=== PATIENT | female | born 1935 | race Caucasian/White ===

== ENCOUNTER 2018-08-03 16:29 | Emergency (ER) | payer MEDICARE, OTHER ==
[2018-08-03] MEDS ORDERED: MECLIZINE 25 MG TABLET PO ONE (17:13)
[2018-08-03] MEDS ORDERED: ACETAMINOPHEN 325 MG TAB PO ONE (17:13)
--- NOTE | 2018-08-03 17:13 | Emergency Department Record ---
History of Present Illness - General Chief Complaint: Hypertension Stated Complaint: HTN/DIZZY Time Seen by Provider: 08/03/18 17:00 Source: Patient Mode of Arrival: Ambulatory Limitations: No limitations - History of Present Illness Initial Comments: The patient is here due to being dizzy like the room is spinning for 2 days. The onset was gradual. She denies any visual changes, falls or trauma and also states her BP has been running high. The patient does not have a doctor here at [facility] and just moved here 2 months ago. She denies any MATTHEWS, trouble talking, CP, back pain or sweating. The patient does have JOAQUIN but that has been a chronic problem and stable. There has been no changes to her medications recently. The patient does have extensive cardiac issues and does have a [employer] in [place]. Complaint: Dizziness Onset/Timin -: Days(s) Timing: Unsure Description: Lightheadedness History of Same: No History of Trauma: No Severity: Mild Improves With: Nothing Worsens With: Nothing Associated Symptoms: Weakness - Related Data Home Medications Medication Instructions Recorded Confirmed Last Taken Aspirin [Adult Aspirin] 81 mg PO DAILY 08/03/18 08/03/18 Unknown Carvedilol [Coreg] 3.125 mg PO BID 08/03/18 08/03/18 Unknown Clopidogrel Bisulfate [Plavix] 75 mg PO DAILY 08/03/18 08/03/18 Unknown Hydrochlorothiazide [Hctz] 25 mg PO DAILY 08/03/18 08/03/18 Unknown Isosorbide Mononitrate [Imdur] 30 mg PO DAILY 08/03/18 08/03/18 Unknown Losartan Potassium [Cozaar] 100 mg PO DAILY 08/03/18 08/03/18 Unknown Omeprazole 40 mg PO DAILY 08/03/18 08/03/18 Unknown Simvastatin [Zocor] 80 mg PO QHS 08/03/18 08/03/18 Unknown Sucralfate [Carafate] 1 gm PO QHS 08/03/18 08/03/18 Unknown Previous Rx's Medication Instructions Recorded Meclizine HCl [Antivert] 12.5 mg PO BID #20 tab 08/03/18 Allergies Allergy/AdvReac Type Severity Reaction Status Date / Time codeine AdvReac ALTERED Verified 08/03/18 17:31 MENTAL STATUS Travel Screening - Travel/Exposure Within Last 30 Days Have you traveled within the last 30 days?: No Review of Systems Constitutional: Denies: Chills, Fever Eyes: Denies: Eye discharge ENT: Denies: Congestion Respiratory: Denies: Cough, Dyspnea Cardiovascular: Denies: Chest pain Endocrine: Reports: Fatigue Gastrointestinal: Denies: Diarrhea, Nausea, Vomiting Genitourinary: Denies: Dysuria Musculoskeletal: Reports: Arthralgia (chronic.) Past Medical History - SOCIAL HISTORY Smoking Status: Former smoker Alcohol Use: None Drug Use: None - RESPIRATORY Hx Respiratory Disorders: Yes Hx Tuberculosis: Yes - CARDIOVASCULAR Hx Cardio Disorders: Yes Hx Abnormal EKG: Yes Hx Heart Attack: Yes Hx Hypertension: Yes - NEURO Hx Neuro Disorders: No - GI Hx GI Disorders: No - Hx Genitourinary Disorders: No - ENDOCRINE Hx Endocrine Disorders: No - MUSCULOSKELETAL Hx Musculoskeletal Disorders: No - PSYCH Hx Psych Problems: No - HEMATOLOGY/ONCOLOGY Hx Hematology/Oncology Disorders: No Family Medical History Any Significant Family History?: No Physical Exam - General General Appearance: Alert, Oriented x3, Cooperative, No acute distress - Head Head exam: Atraumatic, Normocephalic, Normal inspection - Eye Eye exam: Normal appearance, PERRL, EOMI - ENT ENT exam: Normal exam, Mucous membranes moist, Normal external ear exam, Normal orophraynx, TM's normal bilaterally Throat exam: Normal inspection. negative: Tonsillar erythema, Tonsillar exudate - Neck Neck exam: Normal inspection, Full ROM. negative: Tenderness - Respiratory Respiratory exam: Normal lung sounds bilaterally. negative: Respiratory distress - Cardiovascular Cardiovascular Exam: Regular rate, Normal rhythm, Normal heart sounds - GI/Abdominal GI/Abdominal exam: Soft, Normal bowel sounds. negative: Tenderness - Extremities Extremities exam: Normal inspection, Full ROM, Normal capillary refill. negative: Tenderness - Back Back exam: Reports: Normal inspection - Neurological Neurological exam: Abnormal gait (Chronic. The patient uses a walker at all times.), Alert, Oriented X3, Other (Finger to nose normal bilaterally.). negative: Altered, Motor sensory deficit, Normal gait Course Vital Signs 08/03/18 08/03/18 16:37 17:10 Temperature 98.7 F Pulse Rate 77 Respiratory 22 Rate Blood Pressure 201/85 Pulse Ox 93 L - Reevaluation(s) Reevaluation #1: The patient's repeat BP is 159/86. 08/03/18 17:27 Reevaluation #2: The patient is doing well at this time and has no dizziness or weakness. 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 The patient only walks with a walker normally and does appear steady at the side of the bed. Her BP is also much improved and is normal at this time. I did discuss the issues with the lab work and due to the elevated CK-MB (although the Trop is normal) I did recommend a short stay admission. The patient has no symptoms that seem related to her heart but due to the elevated MB I do feel I am obligated to admit for monitoring and further evaluation. I then explained to the patient and family the risks of NOT admitting her here are that she could go home and have an [place], stroke, become disabled and even . The patient clearly has proper decision making capacity and understands and accepts the risks of leaving. She was instructed to return to the ER at any time for recheck if any new symptoms develop. 08/03/18 18:29 08/03/18 18:38 Medical Decision Making - Data Complexity MDM Data: Labs Ordered and/or Reviewed, X-Ray Ordered and/or Reviewed, EKG Ordered and/or Reviewed - Lab Data Result diagrams: 08/03/18 16:55 08/03/18 16:55 - EKG Data -: EKG Interpreted by Me EKG: No Acute Changes (Old anteroseptal infarct, age indeterminate.) - Radiology Data Radiology results: Report reviewed (Head CT: Neg for any acute changes.) Disposition Disposition: Discharge Clinical Impression: Dizziness Disposition: Against Medical Advice Condition: (2) Stable Instructions: Hypertension (ED), Dizziness (ED) Additional Instructions: Please continue your regular medicines and please take the Antivert if needed. Please see your doctor later this week to recheck your blood pressure and for possible medication adjustment. Return to the ER for any worsening dizziness, or any CP, SOB, or SWETA. Prescriptions: Meclizine HCl [Antivert] 12.5 mg PO BID #20 tab Referrals: [facility] Specialty Clinics [Provider Group] JAZZY OLIVA M.D. [MEDICAL DOCTOR] - Forms: Patient Portal Access Time of Disposition: 18:35 Quality - Quality Measures Quality Measures: N/A - Blood Pressure Screening View Details: Yes Does Patient Have Any of the Following: Active Dx of HTN Blood Pressure Classification: Pre-Hypertensive BP Reading Systolic Measurement: 201 Diastolic Measurement: 85 Screening for High Blood Pressure: Patient Exclusion, Hx of HTN [G9744]
[2018-08-03 17:22] LABS: BASO % 0.2 % (0-6); EOS % 0.9 % (0-6); GRAN % 60.6 % (47-80); HEMATOCRIT 36.5 % (35.0-47.0); HEMOGLOBIN 12.2 gm/dl (11.6-16.0); LYMPH % 32.4 % (16-45); MEAN CORPUSCULAR HEMOGLOBIN 26.8 pg (27-33); MEAN CORPUSCULAR HGB CONC 33.4 g/dl (32-36); MEAN PLATELET VOLUME 9.3 fl (7.4-10.4); MONO % 5.9 % (0-9); PLATELET COUNT 291 K/uL (130-400); RED BLOOD COUNT 4.56 M/uL (3.80-5.40); RED CELL DISTRIBUTION WIDTH 14.8 % (11.5-14.5); WHITE BLOOD COUNT W/O DIFF 9.7 K/uL (4.2-12.2)
[2018-08-03 17:44] LABS: ALBUMIN 4.2 g/dL (4.0-5.0); ALKALINE PHOSPHATASE 81 U/L (35-104); ALT/SGPT 12 U/L (<33); AST/SGOT 15 U/L (10.0-35.0)
[2018-08-03 17:45] LABS: ALB/GLOB RATIO 1.2 (1.1-1.8); BLOOD UREA NITROGEN 15 mg/dL (8-23); CREATININE 0.6 mg/dL (0.5-0.9); EST GLOMERULAR FILTRATION RATE > 60 mL/min; GLUCOSE,RANDOM 105 mg/dL (74-109); TOTAL PROTEIN 7.6 g/dL (6.6-8.7)
[2018-08-03 17:50] LABS: CKMB 9.1 ng/mL (<3.77); CREATINE PHOSPHOKINASE 162 U/L (26-192)
--- NOTE | 2018-08-05 12:49 | CT SCAN REPORT ---
EXAM: CT SCAN HEAD WO CONTRAST HISTORY: DIZZINESS. HIGH BLOOD PRESSURE. RIGHT SHOULDER PAIN. TECHNIQUE: Noncontrast CT head. COMPARISON: None. FINDINGS: Diffuse prominence of the ventricles and cortical sulci. Periventricular and subcortical white matter hypoattenuation. No midline shift, mass effect, or abnormal intra or extraaxial fluid collection. No cerebral edema , focal mass, or intracranial hemorrhage detected. Basal cisterns are not effaced. No evidence of displaced calvarial fracture. Visualized paranasal sinuses and mastoid air cells are clear. IMPRESSION: 1. NO ACUTE INTRACRANIAL FINDINGS. 2. DIFFUSE CEREBRAL VOLUME LOSS AND LIKELY CHRONIC SMALL VESSEL ISCHEMIC WHITE MATTER CHANGES. JOB NUMBER: [id number] MTDD
== END 2018-08-03 18:49 | disposition left against medical advice (07) ==
LOC: ER 16:29
DX: R42 Dizziness and giddiness (principal); R53.1 Weakness; R74.8 Abnormal levels of other serum enzymes; M25.511 Pain in right shoulder; I10 Essential (primary) hypertension; I25.2 Old myocardial infarction; Z87.891 Personal history of nicotine dependence
CPT/HCPCS: 70450; 80053; 82550; 82553; 84484; 85025; 93005; 93010; 99284

== ENCOUNTER 2018-10-02 21:55 | Observation (INO) | payer MEDICARE, OTHER ==
[2018-10-02] MEDS ORDERED: IPRATROPIUM/ALBUTEROL (0.5MG/3MG) NEB INH ONE (22:01)
[2018-10-02] MEDS ORDERED: METHYLPREDNISOLONE PF 125MG/VIAL IVPB ONE (22:01)
[2018-10-02] MEDS ORDERED: ALBUTEROL (0.5% CONCENTRATED) 2.5 MG/0.5 ML VIAL.NEB INH ONE (22:05)
--- NOTE | 2018-10-02 22:07 | Emergency Department Record ---
History of Present Illness - General Chief Complaint: Shortness of breath Stated Complaint: SWETA Time Seen by Provider: 10/02/18 22:01 Source: Patient, Family (Daughter) Mode of Arrival: Wheelchair Limitations: No limitations - History of Present Illness Initial Comments: 83 yo female presents to ED for difficulty in breathing symptoms that began this evening. Patient does have bronchodilators that help at home, daughter is unsure if the patient has been diagnosed with COPD or asthma. Patient denies fevers, chills, or productive cough symptoms. Patient denies chest discomfort symptoms. MD Complaint: Shortness of breath Onset/Timin -: Days(s) Consistency: Constant Improves With: Bronchodilators Worsens With: Lying flat Known History Of: COPD Associated Symptoms: Denies other symptoms Treatments Prior to Arrival: Bronchodilator - Related Data Home Oxygen Therapy: No Previous Rx's Medication Instructions Recorded Meclizine HCl [Antivert] 12.5 mg PO BID #20 tab 08/03/18 Allergies Allergy/AdvReac Type Severity Reaction Status Date / Time codeine AdvReac ALTERED Verified 08/03/18 17:31 MENTAL STATUS Review of Systems Constitutional: Denies: Chills, Fever, Malaise, Night sweats Eyes: Denies: Eye discharge, Eye pain ENT: Denies: Congestion, Ear pain, Epistaxis Respiratory: Reports: Dyspnea, Wheezes. Denies: Cough Cardiovascular: Reports: Dyspnea on exertion. Denies: Chest pain Endocrine: Denies: Fatigue, Heat or cold intolerance Gastrointestinal: Denies: Abdominal pain, Nausea, Vomiting Genitourinary: Denies: Incontinence, Retention Musculoskeletal: Denies: Arthralgia, Back pain Skin: Denies: Bruising, Change in color Neurological: Denies: Abnormal gait, Confusion, Headache, Seizure Psychiatric: Denies: Anxiety Hematological/Lymphatic: Denies: Anemia, Blood Clots Past Medical History - SOCIAL HISTORY Smoking Status: Former smoker Drug Use: None - RESPIRATORY Hx Respiratory Disorders: Yes Hx Tuberculosis: Yes - CARDIOVASCULAR Hx Cardio Disorders: Yes Hx Abnormal EKG: Yes Hx Heart Attack: Yes Hx Hypertension: Yes - NEURO Hx Neuro Disorders: No - GI Hx GI Disorders: No - Hx Genitourinary Disorders: No - ENDOCRINE Hx Endocrine Disorders: No - MUSCULOSKELETAL Hx Musculoskeletal Disorders: No - PSYCH Hx Psych Problems: No - HEMATOLOGY/ONCOLOGY Hx Hematology/Oncology Disorders: No Physical Exam - General General Appearance: Alert, Oriented x3, Cooperative, Moderate distress, Other ( Sitting upright, tachypnic with diminished BS bilaterally) Limitations: No limitations - Head Head exam: Atraumatic, Normocephalic, Normal inspection Head exam detail: negative: Abrasion, Contusion, Ureña's sign, General tenderness, Hematoma, Laceration - Eye Eye exam: Normal appearance. negative: Conjunctival injection, Periorbital swelling, Periorbital tenderness, Scleral icterus - ENT Ear exam: negative: Auricular hematoma, Auricular trauma Nasal Exam: negative: Active bleeding, Discharge, Dried blood, Foreign body Mouth exam: negative: Drooling, Laceration, Muffled voice, Tongue elevation - Neck Neck exam: Normal inspection. negative: Meningismus, Tenderness - Respiratory Respiratory exam: Decreased breath sounds, Prolonged expiratory, Respiratory distress, Wheezes - Cardiovascular Cardiovascular Exam: Normal rhythm, Normal heart sounds, Tachycardia - GI/Abdominal GI/Abdominal exam: Soft. negative: Rebound, Rigid, Tenderness - Rectal Rectal exam: Deferred - exam: Deferred - Extremities Extremities exam: Normal inspection. negative: Pedal edema, Tenderness - Back Back exam: Denies: CVA tenderness (R), CVA tenderness (L) - Neurological Neurological exam: Alert, Oriented X3 - Psychiatric Psychiatric exam: Normal affect, Normal mood - Skin Skin exam: Normal color. negative: Abrasion Type of lesion: negative: abrasion Course - Reevaluation(s) Reevaluation #1: 10/02/18 22:30 EKG: NSR 93 Normal axis, normal intervals Artifact present, J-point elevation V1-V3 No reciprocal changes are present. Reevaluation #2: 10/02/18 22:41 Laboratory studies were reviewed and are grossly unremarkable for an acute process. Patient's work of breathing is significantly improved on Bipap at this time. Reevaluation #3: 10/02/18 23:11 Patient was updated on all results, will trial off Bipap, admit and monitor closely. Patient and her daughter are in agreement with the plan of care as discussed. Reevaluation #4: 10/03/18 07:03 Case was discussed with Sra Phillips DELIVERY DIRECTOR, will accept admission at this time. Medical Decision Making - Lab Data Result diagrams: 10/02/18 22:10 10/02/18 22:10 Critical Care Time Critical Care Time: Yes Total Critical Care Time: 60 Critical Care Time: Diagnosis and treatment of COPD with exacerbation, Bipap management, EKG interpretation, admission for further treatment. Disposition Disposition: Admit Clinical Impression: COPD with acute exacerbation, Hypoxia Disposition: Still a Patient at [facility] Decision to Admit: Admit from ER Decision to Admit Date: 10/02/18 Decision to Admit Time: 23:11 Condition: (2) Stable Time of Disposition: 23:12 Quality - Quality Measures Quality Measures: N/A - Blood Pressure Screening Does Patient Have Any of the Following: Active Dx of HTN Blood Pressure Classification: Hypertensive Reading Systolic Measurement: 225 Diastolic Measurement: 107 Screening for High Blood Pressure: Patient Exclusion, Hx of HTN [G9744]
[2018-10-02 22:18] LABS: BASO % 0.3 % (0-6); EOS % 1.8 % (0-6); GRAN % 67.7 % (47-80); HEMATOCRIT 38.9 % (35.0-47.0); HEMOGLOBIN 12.4 gm/dl (11.6-16.0); LYMPH % 25.8 % (16-45); MEAN CELL VOLUME 81.6 fl (81-97); MEAN CORPUSCULAR HGB CONC 31.9 g/dl (32-36); MEAN PLATELET VOLUME 9.1 fl (7.4-10.4); MONO % 4.4 % (0-9); PLATELET COUNT 264 K/uL (130-400); RED BLOOD COUNT 4.77 M/uL (3.80-5.40); RED CELL DISTRIBUTION WIDTH 15.7 % (11.5-14.5); WHITE BLOOD COUNT W/O DIFF 11.6 K/uL (4.2-12.2)
[2018-10-02 22:27] LABS: BLOOD UREA NITROGEN 15 mg/dL (8-23); CREATININE 0.5 mg/dL (0.5-0.9); EST GLOMERULAR FILTRATION RATE > 60 mL/min
[2018-10-02 22:28] LABS: TOTAL PROTEIN 7.6 g/dL (6.6-8.7)
[2018-10-02 22:30] LABS: GLUCOSE,RANDOM 115 mg/dL (74-109)
[2018-10-02 22:33] LABS: ALB/GLOB RATIO 1.2 (1.1-1.8); ALBUMIN 4.2 g/dL (4.0-5.0); ALKALINE PHOSPHATASE 82 U/L (45-87); ALT/SGPT 11 U/L (<33); AST/SGOT 13 U/L (10.0-35.0)
[2018-10-03] MEDS ORDERED: ALBUTEROL SULFATE (0.083%) 2.5 MG/3 ML NEB INH PRN (00:09)
[2018-10-03] MEDS: ACETAMINOPHEN 500 MG TABLET PO PRN ×2 (01:03→09:45)
[2018-10-03] MEDS: 0.9 % SODIUM CHLORIDE 1000ML 1,000 ML IV PRN ×2 (01:04→13:22)
[2018-10-03] MEDS: SUCRALFATE 1 G/10 ML UD PO SCH ×2 (01:07→22:13)
[2018-10-03] MEDS: IPRATROPIUM/ALBUTEROL (0.5MG/3MG) NEB INH SCH ×7 (05:15→22:18)
[2018-10-03] MEDS: PANTOPRAZOLE SODIUM 40 MG TABLET PO SCH (07:22)
[2018-10-03] MEDS: CARVEDILOL 3.125 MG TABLET PO SCH ×2 (09:44→22:13)
[2018-10-03] MEDS: LOSARTAN POTASSIUM 100 MG TABLET PO SCH (09:44)
[2018-10-03] MEDS: MECLIZINE 25 MG TABLET PO SCH ×2 (09:45→22:14)
[2018-10-03] MEDS: CLOPIDOGREL 75MG TABLET PO SCH (09:45)
[2018-10-03] MEDS: ASPIRIN 81 MG TABEC PO SCH (09:45)
[2018-10-03] MEDS: ISOSORBIDE MONONITRATE 30 MG TAB.ER.24H PO SCH (09:46)
[2018-10-03] MEDS: METHYLPREDNISOLONE PF 125MG/VIAL IVP SCH (09:46)
[2018-10-03] MEDS: HYDROCHLOROTHIAZIDE 25 MG TABLET PO SCH (09:46)
[2018-10-03 11:08] LABS: INFLUENZA A NEGATIVE (NEGATIVE); INFLUENZA B NEGATIVE (NEGATIVE)
--- NOTE | 2018-10-03 12:03 | History & Physical ---
History of Present Illness - Date of Service Date of Service for History & Physical: 10/03/18 - History of Present Illness Admitting Diagnosis: COPD with acute exacerbation. Hypoxia History of Present Illness: 83 yo female c/o worsening SWETA/SOB and cough for several days. Denies sick contacts, was 2ppd smoker but quit 20 years ago. Denies official DX of COPD, daughter reports over use of alb MDI at home. PMH "lung issues", [place], cardiac STENT x1 (1999), tod femoral STENT, DM, HTN, hyperlipidemia, GERD, macular degeneration, and hearing impairment. 10/02/18 Pt brought to [facility] ER by daughter for SWETA. EKG no acute process CXR audio clip reviewed, chronic changes no PNA noted 97.3F axillary, HR 120 (down to 89 after bipap initiated), 225/107 (176/90), 40RR (20), 84% RA (95% bipap) WBC 11.6, Hgb 12.4, Hct 38.9, Plt 264 Na 126, Na 4.2, Cl 88, CO2 23, Anion gap 16, BUN 15, Cr 0.5, GFR >60, Glucose 115, LFTs wnl Trop <0.010 Pt placed on Bipap, improved work of breathing, HR and RR decreased with increase in O2 sat. Per ER report, pt requested to keep bipap on for the evening to sleep and tolerated well. Given solumedrol 125mg IVP, alb tx in the bipap, 10/03/18 Flu swab negative, UA negative. Labs reviewed, low sodium-repeat AM Pt taken off bipap and tolerating NC 3L. Pt has mild resp distress but able to talk in full sentences. Pt denies CP and report she feels rested after the bipap use last night. Pt has heavy smoking hx and only uses alb MDI at home, no official COPD dx but daughter at bedside reports pt uses alb MDI repeatedly through out the day. Baseline activity level is active and ambulatory. POC supplemental O2, alb nebs, repeat labs in the AM, bipap if needed but attempting to maintain on NC, solumedrol 125mg IVP, and pulmicort neb. Pt daughter also brought in up to date med list, nursing staff reviewing and will monitor BP with all meds up to date. PCP [facility] Specialist Gonzales Spencer ([facility]) Travel Screening - Travel/Exposure Within Last 30 Days Have you traveled within the last 30 days?: No - Travel/Exposure Within Last Year Have you traveled outside the [place] in the last year?: No - Additonal Travel Details Have you been exposed to anyone with a communicable illness?: No - Travel Symptoms Symptom Screening: None Review of Systems Constitutional: Denies: Chills, Fever, Malaise, Night sweats Eyes: Denies: Eye discharge, Eye pain ENT: Denies: Congestion, Ear pain, Epistaxis Respiratory: Reports: Dyspnea, Wheezes. Denies: Cough Cardiovascular: Reports: Dyspnea on exertion. Denies: Chest pain Endocrine: Denies: Fatigue, Heat or cold intolerance Gastrointestinal: Denies: Abdominal pain, Nausea, Vomiting Genitourinary: Denies: Incontinence, Retention Musculoskeletal: Denies: Arthralgia, Back pain Skin: Denies: Bruising, Change in color Neurological: Denies: Abnormal gait, Confusion, Headache, Seizure Psychiatric: Denies: Anxiety Hematological/Lymphatic: Denies: Anemia, Blood Clots Past Medical History - SOCIAL HISTORY Smoking Status: Former smoker Drug Use: None - RESPIRATORY Hx Respiratory Disorders: Yes Hx Tuberculosis: Yes - CARDIOVASCULAR Hx Cardio Disorders: Yes Hx Abnormal EKG: Yes Hx Heart Attack: Yes Hx Hypertension: Yes - NEURO Hx Neuro Disorders: No - GI Hx GI Disorders: No - Hx Genitourinary Disorders: No - ENDOCRINE Hx Endocrine Disorders: No - MUSCULOSKELETAL Hx Musculoskeletal Disorders: No - PSYCH Hx Psych Problems: No - HEMATOLOGY/ONCOLOGY Hx Hematology/Oncology Disorders: No Family Medical History Any Significant Family History?: No Hx Alcohol Use: Father Hx Dementia: Mother Hx Diabetes: Brother/Sister Hx HTN: Brother/Sister Hx Stroke: Father H&P Meds/Allergies - Allergies Allergies: Allergies Allergy/AdvReac Type Severity Reaction Status Date / Time codeine AdvReac ALTERED Verified 08/03/18 17:31 MENTAL STATUS - Home Medications Previous Rx's Medication Instructions Recorded Meclizine HCl [Antivert] 12.5 mg PO BID #20 tab 08/03/18 - Active Medications Active Medications: Current Medications Acetaminophen (Tylenol 500mg Tab) 1,000 mg PO Q6H PRN PRN Reason: PAIN - MILD TO MODERATE (1-7) Last Admin: 10/03/18 09:45 Dose: 1,000 mg Albuterol Sulfate (Albuterol Sulfate) 2.5 mg INH RESP.Q2H PRN PRN Reason: DIFFICULTY IN BREATHING Albuterol/Ipratropium (Duoneb) 3 ml INH RESP.Q4H.WA [facility] Last Admin: 10/03/18 10:33 Dose: 3 ml Aspirin (Ecotrin (Ec)) 81 mg PO DAILY [facility] Last Admin: 10/03/18 09:45 Dose: 81 mg Carvedilol (Coreg) 3.125 mg PO BID [facility] Last Admin: 10/03/18 09:44 Dose: 3.125 mg Clopidogrel Bisulfate (Plavix) 75 mg PO DAILY [facility] Last Admin: 10/03/18 09:45 Dose: 75 mg Hydrochlorothiazide (Hctz 25mg) 25 mg PO DAILY [facility] Last Admin: 10/03/18 09:46 Dose: 25 mg Sodium Chloride () 1,000 mls @ 100 mls/hr IV .Q10H PRN PRN Reason: LARGE VOLUME IV Last Admin: 10/03/18 01:04 Dose: 100 mls/hr Isosorbide Mononitrate (Imdur) 30 mg PO DAILY [facility] Last Admin: 10/03/18 09:46 Dose: 30 mg Losartan Potassium (Losartan Potassium) 100 mg PO DAILY [facility] Last Admin: 10/03/18 09:44 Dose: 100 mg Meclizine HCl (Antivert) 12.5 mg PO BID [facility] Last Admin: 10/03/18 09:45 Dose: 12.5 mg Methylprednisolone Sodium Succinate (Solu-Medrol) 125 mg IVP DAILY [facility] Last Admin: 10/03/18 09:46 Dose: 125 mg [facility]oprazole [facility] (Protonix) [facility] Last Admin: 10/03/18 07:22 Dose: 80 mg Simvastatin (Zocor) 80 mg PO QHS [facility] Sucralfate (Carafate) 1 g PO QHS [facility] Last Admin: 10/03/18 01:07 Dose: 1 g Physical Exam - Vital Signs Vital Signs: Vital Signs - Last 24 Hrs Temp Pulse Pulse Pulse Pulse Resp BP 10/03/18 09:16 89 20 10/03/18 08:58 110 H 20 10/03/18 08:30 97.5 F L 102 H 24 10/03/18 07:44 84 20 10/03/18 01:42 90 16 10/03/18 00:09 97.8 F 93 H 16 10/02/18 23:24 83 22 10/02/18 22:39 97.3 F L 89 20 10/02/18 21:56 120 H 40 H 225/107 BP BP Pulse Ox 10/03/18 09:16 95 10/03/18 08:58 91 L 10/03/18 08:30 162/66 94 L 10/03/18 07:44 10/03/18 01:42 10/03/18 00:09 204/79 92 L 10/02/18 23:24 177/76 95 10/02/18 22:39 176/90 95 10/02/18 21:56 84 L - General General Appearance: Alert, Oriented x3, Cooperative, Mild distress Limitations: No limitations - Head Head exam: Atraumatic, Normocephalic, Normal inspection Head exam detail: negative: Abrasion, Contusion, Ureña's sign, General tenderness, Hematoma, Laceration - Eye Eye exam: Normal appearance. negative: Conjunctival injection, Periorbital swelling, Periorbital tenderness, Scleral icterus - ENT ENT exam: Mucous membranes moist Ear exam: negative: Auricular hematoma, Auricular trauma Nasal Exam: Normal inspection. negative: Active bleeding, Discharge, Dried blood, Foreign body Mouth exam: negative: Drooling, Laceration, Muffled voice, Tongue elevation Teeth exam: Other (dentures) - Neck Neck exam: Normal inspection. negative: Meningismus, Tenderness - Respiratory Respiratory exam: Decreased breath sounds, Prolonged expiratory, Respiratory distress (mild), Wheezes - Cardiovascular Cardiovascular Exam: Regular rate, Normal rhythm, Normal heart sounds Peripheral Pulses: 3+: Radial (R), Radial (L), Dorsalis Pedis (R), Dorsalis Pedis (L) - GI/Abdominal GI/Abdominal exam: Soft. negative: Rebound, Rigid, Tenderness - Rectal Rectal exam: Deferred - exam: Deferred - Extremities Extremities exam: Normal inspection. negative: Pedal edema, Tenderness - Back Back exam: Denies: CVA tenderness (R), CVA tenderness (L) - Neurological Neurological exam: Alert, Oriented X3 - Psychiatric Psychiatric exam: Normal affect, Normal mood - Skin Skin exam: Normal color. negative: Abrasion Type of lesion: negative: abrasion Results - Labs Result Diagrams: 10/02/18 22:10 10/02/18 22:10 Labs Last 24 Hours: Laboratory Results - last 24 hr 10/02/18 10/02/18 10/02/18 22:10 22:10 22:10 WBC 11.6 RBC 4.77 Hgb 12.4 Hct 38.9 MCV 81.6 MCH 26.0 L MCHC 31.9 L RDW 15.7 H Plt Count 264 MPV 9.1 Gran % 67.7 Lymphocytes % 25.8 Monocytes % 4.4 Eosinophils % 1.8 Basophils % 0.3 Sodium 127 L Potassium 4.2 Chloride 88 L Carbon Dioxide 23.0 Anion Gap 16.0 BUN 15 Creatinine 0.5 Estimated GFR > 60 Random Glucose 115 H Calcium 9.8 Total Bilirubin 0.40 AST 13 ALT 11 Alkaline Phosphatase 82 Troponin T < 0.010 Total Protein 7.6 Albumin 4.2 Globulin 3.4 Albumin/Globulin Ratio 1.2 Influenza Type A Ag Influenza Type B Ag 10/03/18 09:08 WBC RBC Hgb Hct MCV MCH MCHC RDW Plt Count MPV Gran % Lymphocytes % Monocytes % Eosinophils % Basophils % Sodium Potassium Chloride Carbon Dioxide Anion Gap BUN Creatinine Estimated GFR Random Glucose Calcium Total Bilirubin AST ALT Alkaline Phosphatase Troponin T Total Protein Albumin Globulin Albumin/Globulin Ratio Influenza Type A Ag Negative Influenza Type B Ag Negative - Imaging and Cardiology Chest x-ray Status: Report reviewed (audio clip reviewed) VTE H&P Assessment - Risk for VTE Risk for VTE: Yes Risk Level: High Risk Assessment Date: 10/03/18 Risk Assessment Time: 14:07 VTE Orders Placed or Will Be Placed: Yes Plan - Detailed Diagnosis and Plan (1) COPD with acute exacerbation Current Visit: Yes Status: Acute Base Code: J44.1 - CHRONIC OBSTRUCTIVE PULMONARY DISEASE W (ACUTE) EXACERBATION Comment: 10/03/18 -pt improving with steroids, temporary Bipap and now O2 via NC @ 3l -continue alb neb tx, pulmicort tx -CXR reports chronic issues, no PNA -CBC normal (2) Hypoxia Current Visit: Yes Status: Acute Base Code: R09.02 - HYPOXEMIA Comment: -84% RA upon arrival, bipap increased sat 95% -after steroids, alb tx, pt stable on 3L NC -continue to monitor O2 sat, maintain 92% and above (3) DNR (do not resuscitate) Current Visit: Yes Status: Acute Base Code: Z66 - DO NOT RESUSCITATE Comment: 10/03/18 -pt req DNR, DNR form completed with daughter at bedside, witnessing event (4) DVT prophylaxis Current Visit: Yes Status: Acute Base Code: [id number] - Comment: 10/03/18 -lovenox 40mg SQ
[2018-10-03 12:36] LABS: URINE APPEARANCE SL CLOUDY; URINE BILIRUBIN NEGATIVE (NEGATIVE); URINE BLOOD NEGATIVE (NEGATIVE); URINE COLOR YELLOW; URINE GLUCOSE (UA) NEGATIVE (NEGATIVE); URINE KETONE NEGATIVE (NEGATIVE); URINE LEUKOCYTE ESTERASE NEGATIVE (NEGATIVE); URINE NITRITE NEGATIVE (NEGATIVE); URINE PROTEIN NEGATIVE (NEGATIVE); URINE UROBILINOGEN 0.2 E.U./dL (0.20 - 1.00)
[2018-10-03] MEDS: BUDESONIDE 0.5 MG/2 ML INH SCH ×2 (13:37→19:57)
[2018-10-03] MEDS ORDERED: GABAPENTIN 100 MG CAPSULE PO SCH (16:00)
[2018-10-03] MEDS: GABAPENTIN 400 MG PO SCH ×2 (16:03→22:15)
[2018-10-03] MEDS: SIMVASTATIN 20 MG TABLET PO SCH (22:14)
[2018-10-03] MEDS: PERSERVISION PO SCH (22:15)
[2018-10-04] MEDS: BUDESONIDE 0.5 MG/2 ML INH SCH ×2 (06:03→17:56)
[2018-10-04] MEDS: IPRATROPIUM/ALBUTEROL (0.5MG/3MG) NEB INH SCH ×5 (06:03→21:46)
[2018-10-04 06:25] LABS: BASO % 0.1 % (0-6); EOS % 0.1 % (0-6); GRAN % 74.7 % (47-80); HEMATOCRIT 32.6 % (35.0-47.0); HEMOGLOBIN 10.4 gm/dl (11.6-16.0); LYMPH % 17.3 % (16-45); MEAN CELL VOLUME 81.7 fl (81-97); MEAN CORPUSCULAR HGB CONC 31.9 g/dl (32-36); MEAN PLATELET VOLUME 8.9 fl (7.4-10.4); MONO % 7.8 % (0-9); PLATELET COUNT 250 K/uL (130-400); RED BLOOD COUNT 3.99 M/uL (3.80-5.40); RED CELL DISTRIBUTION WIDTH 15.8 % (11.5-14.5); WHITE BLOOD COUNT W/O DIFF 8.6 K/uL (4.2-12.2)
[2018-10-04 06:37] LABS: BLOOD UREA NITROGEN 18 mg/dL (8-23); CREATININE 0.5 mg/dL (0.5-0.9); EST GLOMERULAR FILTRATION RATE > 60 mL/min; GLUCOSE,RANDOM 104 mg/dL (74-109)
[2018-10-04] MEDS: PANTOPRAZOLE SODIUM 40 MG TABLET PO SCH (06:39)
[2018-10-04] MEDS: ASPIRIN 81 MG TABEC PO SCH (09:36)
[2018-10-04] MEDS: MECLIZINE 25 MG TABLET PO SCH ×2 (09:36→22:07)
[2018-10-04] MEDS: HYDROCHLOROTHIAZIDE 25 MG TABLET PO SCH (09:37)
[2018-10-04] MEDS: CLOPIDOGREL 75MG TABLET PO SCH (09:38)
[2018-10-04] MEDS: CARVEDILOL 3.125 MG TABLET PO SCH ×2 (09:38→22:08)
[2018-10-04] MEDS: LOSARTAN POTASSIUM 100 MG TABLET PO SCH (09:38)
[2018-10-04] MEDS: METHYLPREDNISOLONE PF 125MG/VIAL IVP SCH (09:38)
[2018-10-04] MEDS: ISOSORBIDE MONONITRATE 30 MG TAB.ER.24H PO SCH (09:38)
[2018-10-04] MEDS: ENOXAPARIN 40 MG/0.4 ML SYR SQ SCH (09:39)
[2018-10-04] MEDS: PERSERVISION PO SCH ×2 (11:05→22:09)
[2018-10-04] MEDS: GABAPENTIN 400 MG PO SCH ×3 (11:05→22:09)
--- NOTE | 2018-10-04 11:40 | Physician Progress Note ---
Subjective - Date Date of Physician Progress Note: 10/04/18 - Subjective Subjective Comment: Pt reports decreased work of breathing but still using supplemental O2 and has not returned to normal appetite. Denies shortness of breath at this time. Objective - Vital Signs Vital Signs: Vital Signs - Last 24 Hrs Temp Pulse Pulse Pulse Pulse Resp BP 10/04/18 10:28 89 20 10/04/18 09:55 101 H 18 10/04/18 09:45 94 H 22 10/04/18 09:00 90 91 H 20 10/04/18 06:03 79 16 10/04/18 00:00 98.1 F 81 20 167/59 10/03/18 22:20 88 18 10/03/18 21:00 83 10/03/18 20:01 95 H 20 10/03/18 16:57 88 20 10/03/18 15:38 97.7 F 92 H 22 142/61 10/03/18 12:59 91 H 20 BP Pulse Ox 10/04/18 10:28 91 L 10/04/18 09:55 94 L 10/04/18 09:45 138/68 91 L 10/04/18 09:00 10/04/18 06:03 96 10/04/18 00:00 96 10/03/18 22:20 95 10/03/18 21:00 10/03/18 20:01 95 10/03/18 16:57 97 10/03/18 15:38 93 L 10/03/18 12:59 95 - General General Appearance: Alert, Oriented x3, Cooperative, No acute distress Limitations: No limitations - Head Head exam: Atraumatic, Normocephalic, Normal inspection Head exam detail: negative: Abrasion, Contusion, Ureña's sign, General tenderness, Hematoma, Laceration - Eye Eye exam: Normal appearance. negative: Conjunctival injection, Periorbital swelling, Periorbital tenderness, Scleral icterus - ENT ENT exam: Mucous membranes moist Ear exam: negative: Auricular hematoma, Auricular trauma Nasal Exam: Normal inspection. negative: Active bleeding, Discharge, Dried blood, Foreign body Mouth exam: negative: Drooling, Laceration, Muffled voice, Tongue elevation Teeth exam: Other (dentures) - Neck Neck exam: Normal inspection. negative: Meningismus, Tenderness - Respiratory Respiratory exam: Decreased breath sounds, Prolonged expiratory, Respiratory distress (mild), Wheezes - Cardiovascular Cardiovascular Exam: Regular rate, Normal rhythm, Normal heart sounds Peripheral Pulses: 3+: Radial (R), Radial (L), Dorsalis Pedis (R), Dorsalis Pedis (L) - GI/Abdominal GI/Abdominal exam: Soft. negative: Rebound, Rigid, Tenderness - Rectal Rectal exam: Deferred - exam: Deferred - Extremities Extremities exam: Normal inspection. negative: Pedal edema, Tenderness - Back Back exam: Denies: CVA tenderness (R), CVA tenderness (L) - Neurological Neurological exam: Alert, Oriented X3 - Psychiatric Psychiatric exam: Normal affect, Normal mood - Skin Skin exam: Normal color. negative: Abrasion Type of lesion: negative: abrasion Assessment and Plan - Assessment and Plan (1) COPD with acute exacerbation Current Visit: Yes Status: Acute Base Code: J44.1 - CHRONIC OBSTRUCTIVE PULMONARY DISEASE W (ACUTE) EXACERBATION Comment: 10/03/18 -pt improving with steroids, temporary Bipap and now O2 via NC @ 3l -continue alb neb tx, pulmicort tx -CXR reports chronic issues, no PNA -CBC normal 10/04/18 -CBC normal, BMP shows continued hyponatremia (asymptomatic) -still on 2L NC, req neb tx -nursing staff to attempt to wean off O2 (2) Hypoxia Current Visit: Yes Status: Acute Base Code: R09.02 - HYPOXEMIA Comment: -84% RA upon arrival, bipap increased sat 95% -after steroids, alb tx, pt stable on 3L NC -continue to monitor O2 sat, maintain 92% and above 10/04/18 -sat stable but on supplemental O2 -attempt to wean to RA (3) Hyponatremia Current Visit: Yes Status: Acute Base Code: E87.1 - HYPO-OSMOLALITY AND HYPONATREMIA Comment: 10/04/18 -low Na 127->128 -pt was on IVF during ER and after arrival to the floor, this was d/c yesterday but Na remains low but pt is asymptomatic -repeat in the AM, no IVF (4) DVT prophylaxis Current Visit: Yes Status: Acute Base Code: [id number] - Comment: 10/04/18 -lovenox 40mg SQ (5) DNR (do not resuscitate) Current Visit: Yes Status: Acute Base Code: Z66 - DO NOT RESUSCITATE Comment: 10/03/18 -pt req DNR, DNR form completed with daughter at bedside, witnessing event 10/04/18 DNR Results - Labs Result Diagrams: 10/04/18 05:55 10/04/18 05:55 Labs Last 24 Hours: Laboratory Results - last 24 hr 10/03/18 10/04/18 10/04/18 11:36 05:55 05:55 WBC 8.6 RBC 3.99 Hgb 10.4 L Hct 32.6 L MCV 81.7 MCH 26.0 L MCHC 31.9 L RDW 15.8 H Plt Count 250 MPV 8.9 Gran % 74.7 Lymphocytes % 17.3 Monocytes % 7.8 Eosinophils % 0.1 Basophils % 0.1 Sodium 128 L Potassium 4.4 Chloride 90 L Carbon Dioxide 26.0 Anion Gap 12.0 BUN 18 Creatinine 0.5 Estimated GFR > 60 Random Glucose 104 Calcium 9.5 Urine Color Yellow Urine Appearance Sl cloudy Urine pH 7.5 Ur Specific [place] 1.010 Urine Protein Negative Urine Glucose (UA) Negative Urine Ketones Negative Urine Blood Negative Urine Nitrite Negative Urine Bilirubin Negative Urine Urobilinogen 0.2 Ur Leukocyte Esterase Negative DVT/PE Assessment - Risk for VTE Risk for VTE: No Risk Level: High Risk Assessment Date: 10/03/18 Risk Assessment Time: 14:07 VTE Orders Placed or Will Be Placed: Yes - Active Medicaitons Current Medications: Current Medications Acetaminophen (Tylenol 500mg Tab) 1,000 mg PO Q6H PRN PRN Reason: PAIN - MILD TO MODERATE (1-7) Last Admin: 10/03/18 09:45 Dose: 1,000 mg Albuterol Sulfate (Albuterol Sulfate) 2.5 mg INH RESP.Q2H PRN PRN Reason: DIFFICULTY IN BREATHING Albuterol/Ipratropium (Duoneb) 3 ml INH RESP.Q4H.WA [facility] Last Admin: 10/04/18 09:55 Dose: 3 ml Aspirin (Ecotrin (Ec)) 81 mg PO DAILY [facility] Last Admin: 10/04/18 09:36 Dose: 81 mg Budesonide (Pulmicort) 0.5 mg INH RESP.BID [facility] Last Admin: 10/04/18 06:03 Dose: 0.5 mg Carvedilol (Coreg) 3.125 mg PO BID [facility] Last Admin: 10/04/18 09:38 Dose: 3.125 mg Clopidogrel Bisulfate (Plavix) 75 mg PO DAILY [facility] Last Admin: 10/04/18 09:38 Dose: 75 mg Enoxaparin Sodium (Lovenox) 40 mg SQ DAILY [facility] Last Admin: 10/04/18 09:39 Dose: 40 mg Hydrochlorothiazide (Hctz 25mg) 25 mg PO DAILY [facility] Last Admin: 10/04/18 09:37 Dose: 25 mg Isosorbide Mononitrate (Imdur) 30 mg PO DAILY [facility] Last Admin: 10/04/18 09:38 Dose: 30 mg Losartan Potassium (Losartan Potassium) 100 mg PO DAILY [facility] Last Admin: 10/04/18 09:38 Dose: 100 mg Meclizine HCl (Antivert) 12.5 mg PO BID [facility] Last Admin: 10/04/18 09:36 Dose: 12.5 mg Methylprednisolone Sodium Succinate (Solu-Medrol) 125 mg IVP DAILY [facility] Last Admin: 10/04/18 09:38 Dose: 125 mg [facility]oprazole [facility]ix) [facility] Last Admin: 10/04/18 06:39 Dose: 80 mg Patient Own Med: (Perservision) 1 each PO BID [facility] Last Admin: 10/04/18 11:05 Dose: 1 each Patient Own Med: (Gabapentin 400mg) 2 each PO TID [facility] Last Admin: 10/04/18 11:05 Dose: 2 each Simvastatin (Zocor) 80 mg PO QHS [facility] Last Admin: 10/03/18 22:14 Dose: 80 mg Sucralfate (Carafate) 1 g PO QHS [facility] Last Admin: 10/03/18 22:13 Dose: 1 g AMI Plan - Labs Result Diagrams: 10/04/18 05:55 10/04/18 05:55
[2018-10-04] MEDS: SUCRALFATE 1 G/10 ML UD PO SCH (22:06)
[2018-10-04] MEDS: SIMVASTATIN 20 MG TABLET PO SCH (22:08)
[2018-10-05] MEDS: BUDESONIDE 0.5 MG/2 ML INH SCH (06:06)
[2018-10-05] MEDS: IPRATROPIUM/ALBUTEROL (0.5MG/3MG) NEB INH SCH ×2 (06:06→10:04)
[2018-10-05] MEDS: PANTOPRAZOLE SODIUM 40 MG TABLET PO SCH (06:06)
[2018-10-05 06:41] LABS: BLOOD UREA NITROGEN 20 mg/dL (8-23); CREATININE 0.6 mg/dL (0.5-0.9); EST GLOMERULAR FILTRATION RATE > 60 mL/min; GLUCOSE,RANDOM 90 mg/dL (74-109)
[2018-10-05] MEDS: ENOXAPARIN 40 MG/0.4 ML SYR SQ SCH (09:13)
[2018-10-05] MEDS: ISOSORBIDE MONONITRATE 30 MG TAB.ER.24H PO SCH (09:14)
[2018-10-05] MEDS: ASPIRIN 81 MG TABEC PO SCH (09:14)
[2018-10-05] MEDS: LOSARTAN POTASSIUM 100 MG TABLET PO SCH (09:14)
[2018-10-05] MEDS: GABAPENTIN 400 MG PO SCH (09:14)
[2018-10-05] MEDS: PERSERVISION PO SCH (09:14)
[2018-10-05] MEDS: METHYLPREDNISOLONE PF 125MG/VIAL IVP SCH (09:14)
[2018-10-05] MEDS: HYDROCHLOROTHIAZIDE 25 MG TABLET PO SCH (09:15)
[2018-10-05] MEDS: CARVEDILOL 3.125 MG TABLET PO SCH (09:15)
[2018-10-05] MEDS: MECLIZINE 25 MG TABLET PO SCH (09:15)
[2018-10-05] MEDS: CLOPIDOGREL 75MG TABLET PO SCH (09:15)
--- NOTE | 2018-10-05 10:43 | RADIOLOGY REPORT ---
EXAM: PORTABLE CHEST HISTORY: DIFFICULTY IN BREATHING. TECHNIQUE: A single upright portable chest is obtained. Comparison: None. FINDINGS: The heart projects at the upper limits of normal in size. No definite pulmonary venous hypertension is seen. The thoracic aorta is tortuous and atherosclerotic. Reticular opacity prominence is scattered in each lung most pronounced in the bases. Additionally there is linear subsegmental atelectasis or scarring scattered in the mid to lower lungs, right greater than left. The possibility of interstitial edema cannot be entirely excluded. No lung consolidation, costophrenic angle blunting or pneumothorax. There are dystrophic calcifications scattered at the level of the upper thorax which may be within soft tissues. Calcified pleural plaques less likely. Healed granulomatous disease suspected in the right mid to lower lung measuring 5 mm. Subtle ill definite nodular opacities project at the mid right hemithorax level and may just relate to superimposition of normal shadows. The lungs and pleural spaces are otherwise clear. There are degenerative changes scattered throughout the visualized spine and shoulder girdles. IMPRESSION: 1. NO PRIOR EXAMINATION AVAILABLE FOR COMPARISON. 2. BORDERLINE CARDIOMEGALY WITHOUT PULMONARY VENOUS HYPERTENSION. 3. COARSENING OF THE PULMONARY INTERSTITIUM LIKELY RELATES TO CHRONIC INTERSTITIAL CHANGES THOUGH INTERSTITIAL EDEMA WOULD BE DIFFICULT TO ENTIRELY EXCLUDE. LINEAR SUBSEGMENTAL ATELECTASIS VERSUS SCARRING ALSO SCATTERED WITHIN THE LUNGS. 4. HEALED GRANULOMATOUS DISEASE. 5. DYSTROPHIC CALCIFICATIONS PROJECT AT THE LEVEL OF THE UPPER THORAX. THESE MAY LIE WITHIN SOFT TISSUES THOUGH CALCIFIED PLEURAL PLAQUES NOT EXCLUDED. 6. SUBTLE NODULAR OPACITIES QUESTIONED AT THE RIGHT MID HEMITHORAX LEVEL MAY JUST RELATE TO SUPERIMPOSITION OF NORMAL SHADOWS THOUGH LUNG NODULES ARE NOT EXCLUDED. FURTHER EVALUATION WITH TWO VIEW CHEST EXAMINATION MAY BE OF BENEFIT. JOB NUMBER: [id number] [facility]
--- NOTE | 2018-10-05 11:05 | Rehab Evaluation ---
Patient Information - Patient Information Diagnosis: cute exacerbation of COPD, Hypoxia Ordered Treatment: PT Evaluate and Treat Status: Initial Evaluation History: Detail (The patient presented in ED on 10/03 with difficulty breathing. The patient was transferred to inpatient floor.) Past Medical/Surgical Hx: PAST MEDICAL/SURGICAL HISTORY Past Surgical History cardiac stent femoral stents chest (15 yrs old from tb) PMH - Respiratory Hx Respiratory Disorders Yes Hx Bronchitis Yes Hx Chronic Obstructive Yes: no official dx Pulmonary Disease (COPD) Hx Dyspnea Yes Hx Tuberculosis Yes PMH - Cardiovascular Hx Cardiovascular Disorders Yes Hx Abnormal EKG Yes Hx Cardiac Catheterization Yes Hx Heart Attack Yes Hx Hypertension Yes PMH - Neuro Hx Neurological Disorders No Hx Dizziness Yes: occasional Hx Neuropathy Yes PMH - GI Hx Gastrointestinal Disorders No Hx Gastroesophageal Reflux Yes PMH - Hx Genitourinary Disorders No Patient No PMH - Endocrine Hx Endocrine Disorders No Hx Diabetes Yes PMH - Musculoskeletal Hx Musculoskeletal Disorders No Hx Arthritis Yes Hx Back Injury Yes: fx hx PMH - Psych Hx Psychiatric Problems No PMH - Hematology/Oncology Hx Hematology/Oncology No Disorders Premorbid Status: Detail (The patient is ambulatory with a 4 wheeled walker. Prior to admission the patient was ambulating without O2.) Social History: Detail (The patient lives alone in a mobile home with 3 steps at the enterance and one railing. The patient's daughter and son-in-law live next door. The bathroom in the mobile home is equipped with a bathtub/shower combination without grab bars and a standard toilet with a grab bar. The patient has assistance of daughter with all household tasks and gets meal on wheels. The patient has not been showering regularly due to inability of stepping over tub. The patient dresses independently. The patient reports that her son-in-law is present when she ambulates on the stairs.) Precautions: [place], Fall - Time With Patient Total Time Spent With Patient (Min): 30 Treatment Procedures: Detail (Initial Evaluation.) Subjective Information - Subjective Information Per Patient (The patient had no complaints of pain and denied recent falls. The patient did state her balance was poor.) Objective Data - Mental Status Patient Orientation: Oriented x3 - Visual Perception Deficit (The patient stated her vision was poor due to macular degeneration but was able to read OT's badge when held close.) - ROM Not within normal limits (The patient's LE AROM was WFL except for R AROM in dorsiflexion and toe extension.) - Strength/Tone Not within normal limits (The patient's LE strength is as follows: Bilateral LE hip strength : general 4+/5 except for R hip flexors which are 4/5, knee musculature is generally 4+/5 except for R knee flexors which was 4-/5, plantar flexors 4/5, dorsiflexors 3-/5, toe extensors 3-/5, toe flexors 3/5.) - Bed Mobility Independent (Independent supine to sit.) - Transfers Independent (Independent sit to and from stand with verbal cues to reach back for the chair. The patient was independent with tub transfer with use of tub seat with a transfer bench with increased effort and use of UE to lift R LE.) - Balance Balance Sitting: Good Balance Standing: Poor (The patient had increased postural sway when standing without 4 wheeled walker. The patient requires at least one hand hold on walker to maintain balance.) - Gait Detail (The patient ambulated with 4 wheeled walker with CG of one for safety with 1 L of O2 a distance of 52 feet x 1 and 25 feet x 1 with one rest period due to shortness of breath. The patient's gait pattern was charecterized by occasional R foot drop with high steppage on the R LE to clear foot.) Therapy Assessment - Therapy Assessment Detail (The patient presents with R LE weakness primarily in dorsiflexors and toe extensors, decreased standing balance, decreased tolerance to complete prolonged physical activity ie: shortness of breath with activity even with O2. The patient could benefit from a tub chair with a transfer bench and grab bars in her tub at home. The patient would also benefit from Home PT to assess mobility at home and for balance and LE strengthening exercises.) Problem List - Problem List Physical Therapy Problem List: Detail (1)Decreased R LE strength 2) Poor standing balance 3) Unsteady gait and R foot drop 4) Decreased ability to complete prolonged physical activity.) Goals - Goals Physical Therapy Goals: 1) The patient will ambulate household distances with appropriate assistive device. 2) Assess the patient's balance using an Objective Balance Test. 3) Increase the patient's LE strength 1/3 to improve stability of gait. 4) The patient will be independent with all transfers in home environment. Plan - Plan Physical Therapy Plan: PT one time a day until discharge from [facility] for gait training, transfer training, LE strengthening and balance exercises. Home PT is recommended after discharge from [facility].
--- NOTE | 2018-10-05 11:06 | Discharge Summary ---
Providers Discharge Summary Date: 10/05/18 Date of admission: 10/03/18 00:05 Expected Date of Discharge: 10/05/18 Attending physician: CHIQUI LANDEROS Physical Exam - Vital Signs Vital Signs: Vital Signs - Last 24 Hrs Temp Pulse Pulse Pulse Resp BP BP 10/05/18 09:56 95 H 16 10/05/18 09:00 98.2 F 99 H 20 142/69 10/05/18 07:47 75 10/05/18 06:07 86 14 10/04/18 21:56 88 16 10/04/18 21:10 98.1 F 92 H 22 117/49 10/04/18 18:00 99 H 18 10/04/18 17:00 98.1 F 91 H 18 132/68 10/04/18 16:02 18 10/04/18 15:35 18 10/04/18 14:03 88 18 10/04/18 12:38 93 H 18 Pulse Ox 10/05/18 09:56 94 L 10/05/18 09:00 93 L 10/05/18 07:47 10/05/18 06:07 94 L 10/04/18 21:56 93 L 10/04/18 21:10 95 10/04/18 18:00 95 10/04/18 17:00 94 L 10/04/18 16:02 95 10/04/18 15:35 93 L 10/04/18 14:03 99 10/04/18 12:38 98 - General General Appearance: Alert, Oriented x3, Cooperative, No acute distress Limitations: No limitations - Head Head exam: Atraumatic, Normocephalic, Normal inspection Head exam detail: negative: Abrasion, Contusion, Ureña's sign, General tenderness, Hematoma, Laceration - Eye Eye exam: Normal appearance. negative: Conjunctival injection, Periorbital swelling, Periorbital tenderness, Scleral icterus - ENT ENT exam: Mucous membranes moist Ear exam: negative: Auricular hematoma, Auricular trauma Nasal Exam: Normal inspection. negative: Active bleeding, Discharge, Dried blood, Foreign body Mouth exam: negative: Drooling, Laceration, Muffled voice, Tongue elevation Teeth exam: Other (dentures) - Neck Neck exam: Normal inspection. negative: Meningismus, Tenderness - Respiratory Respiratory exam: Decreased breath sounds, Prolonged expiratory, Respiratory distress (mild), Wheezes - Cardiovascular Cardiovascular Exam: Regular rate, Normal rhythm, Normal heart sounds Peripheral Pulses: 3+: Radial (R), Radial (L), Dorsalis Pedis (R), Dorsalis Pedis (L) - GI/Abdominal GI/Abdominal exam: Soft. negative: Rebound, Rigid, Tenderness - Rectal Rectal exam: Deferred - exam: Deferred - Extremities Extremities exam: Normal inspection. negative: Pedal edema, Tenderness - Back Back exam: Denies: CVA tenderness (R), CVA tenderness (L) - Neurological Neurological exam: Alert, Oriented X3 - Psychiatric Psychiatric exam: Normal affect, Normal mood - Skin Skin exam: Normal color. negative: Abrasion Type of lesion: negative: abrasion Hospitalization - Hospitalization Admission Diagnosis: COPD with acute exacerbation. Hypoxia - Problem List/Discharge Diagnosis (1) COPD with acute exacerbation Current Visit: Yes Status: Acute Base Code: J44.1 - CHRONIC OBSTRUCTIVE PULMONARY DISEASE W (ACUTE) EXACERBATION Comment: 10/03/18 -pt improving with steroids, temporary Bipap and now O2 via NC @ 3l -continue alb neb tx, pulmicort tx -CXR reports chronic issues, no PNA -CBC normal 10/04/18 -CBC normal, BMP shows continued hyponatremia (asymptomatic) -still on 2L NC, req neb tx -nursing staff to attempt to wean off O2 10/05/18 -pt unable to warn off O2 with ambulation, home O2 ordered -pt needs to use nebulizer machine with duo neb (QID) and pulmicort medications (BID) -Repeat CXR per rad rec ordered -d/c with home O2, neb machine and meds -repeat CXR improved results from 1 view (2) Hypoxia Current Visit: Yes Status: Acute Base Code: R09.02 - HYPOXEMIA Comment: -84% RA upon arrival, bipap increased sat 95% -after steroids, alb tx, pt stable on 3L NC -continue to monitor O2 sat, maintain 92% and above 10/04/18 -sat stable but on supplemental O2 -attempt to wean to RA 10/05/18 -unable to wean off O2 with act, home O2 ordered -pt maintaining sats 90's with supplemenation, 88% with minimal activity or ambulation (3) Hyponatremia Current Visit: Yes Status: Acute Base Code: E87.1 - HYPO-OSMOLALITY AND HYPONATREMIA Comment: 10/04/18 -low Na 127->128 -pt was on IVF during ER and after arrival to the floor, this was d/c yesterday but Na remains low but pt is asymptomatic -repeat in the AM, no IVF 10/05/18 -low Na 127->128->130 -pt to f/u PCP (est care with [facility]) (4) DVT prophylaxis Current Visit: Yes Status: Acute Base Code: [id number] - Comment: 10/04/18 -lovenox 40mg SQ (5) DNR (do not resuscitate) Current Visit: Yes Status: Acute Base Code: Z66 - DO NOT RESUSCITATE Comment: 10/03/18 -pt req DNR, DNR form completed with daughter at bedside, witnessing event 10/05/18 DNR - Hospitalization Course Disposition: Home Health Service Hospital Course: 83 yo female c/o worsening SWETA/SOB and cough for several days. Denies sick contacts, was 2ppd smoker but quit 20 years ago. Denies official DX of COPD, daughter reports over use of alb MDI at home. PMH "lung issues", AK, cardiac STENT x1 (1999), tod femoral STENT, DM, HTN, hyperlipidemia, GERD, macular degeneration, and hearing impairment. 10/02/18 Pt brought to [facility] ER by daughter for SWETA. EKG no acute process CXR audio clip reviewed, chronic changes no PNA noted 97.3F axillary, HR 120 (down to 89 after bipap initiated), 225/107 (176/90), 40RR (20), 84% RA (95% bipap) WBC 11.6, Hgb 12.4, Hct 38.9, Plt 264 Na 126, Na 4.2, Cl 88, CO2 23, Anion gap 16, BUN 15, Cr 0.5, GFR >60, Glucose 115, LFTs wnl Trop <0.010 Pt placed on Bipap, improved work of breathing, HR and RR decreased with increase in O2 sat. Per ER report, pt requested to keep bipap on for the evening to sleep and tolerated well. Given solumedrol 125mg IVP, alb tx in the bipap, 10/03/18 Flu swab negative, UA negative. Labs reviewed, low sodium-repeat AM Pt taken off bipap and tolerating NC 3L. Pt has mild resp distress but able to talk in full sentences. Pt denies CP and report she feels rested after the bipap use last night. Pt has heavy smoking hx and only uses alb MDI at home, no official COPD dx but daughter at bedside reports pt uses alb MDI repeatedly through out the day. Baseline activity level is active and ambulatory. POC supplemental O2, alb nebs, repeat labs in the AM, bipap if needed but attempting to maintain on NC, solumedrol 125mg IVP, and pulmicort neb. Pt daughter also brought in up to date med list, nursing staff reviewing and will monitor BP with all meds up to date. 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 Abnormal Labs: Abnormal Lab Results 10/02/18 10/02/18 10/04/18 Range/Units 22:10 22:10 05:55 Hgb 10.4 L (11.6-16.0) gm/dl Hct 32.6 L (35.0-47.0) % MCH 26.0 L 26.0 L (27-33) pg MCHC 31.9 L 31.9 L (32-36) g/dl RDW 15.7 H 15.8 H (11.5-14.5) % Sodium 127 L (136-145) mmol/L Potassium (3.4-4.5) mmol/L Chloride 88 L (98-107) mmol/L Random Glucose 115 H (74-109) mg/dL 10/04/18 10/05/18 Range/Units 05:55 06:15 Hgb (11.6-16.0) gm/dl Hct (35.0-47.0) % MCH (27-33) pg MCHC (32-36) g/dl RDW (11.5-14.5) % Sodium 128 L 130 L (136-145) mmol/L Potassium 4.6 H (3.4-4.5) mmol/L Chloride 90 L 92 L (98-107) mmol/L Random Glucose (74-109) mg/dL Condition at Discharge: (2) Stable Discharge Medications - Discharge Medications Prescriptions: Budesonide [Pulmicort] 0.5 mg INH RESP.BID #2 box Ipratropium/Albuterol [Duoneb] 3 ml INH RESP.Q4H.WA #2 box Prednisone [Prednisone 20Mg] 40 mg PO DAILY 2 Days #4 tab Home Medications: Ambulatory Orders Aspirin [Adult Aspirin] 81 mg PO DAILY 08/03/18 [Last Taken Unknown] Carvedilol [Coreg] 3.125 mg PO BID 08/03/18 [Last Taken Unknown] Clopidogrel Bisulfate [Plavix] 75 mg PO DAILY 08/03/18 [Last Taken Unknown] Hydrochlorothiazide [Hctz] 25 mg PO DAILY 08/03/18 [Last Taken Unknown] Isosorbide Mononitrate [Imdur] 30 mg PO DAILY 08/03/18 [Last Taken Unknown] Losartan Potassium [Cozaar] 100 mg PO DAILY 08/03/18 [Last Taken Unknown] Meclizine HCl [Antivert] 12.5 mg PO BID #20 tab 08/03/18 [Last Taken Unknown] Omeprazole 40 mg PO DAILY 08/03/18 [Last Taken Unknown] Simvastatin [Zocor] 80 mg PO QHS 08/03/18 [Last Taken Unknown] Sucralfate [Carafate] 1 gm PO QHS 08/03/18 [Last Taken Unknown] Acetaminophen [Tylenol 500Mg Tab] 1,000 mg PO Q6H PRN tablet 10/05/18 [Last Taken Unknown] Budesonide [Pulmicort] 0.5 mg INH RESP.BID #2 box 10/05/18 [Last Taken Unknown] Ipratropium/Albuterol [Duoneb] 3 ml INH RESP.Q4H.WA #2 box 10/05/18 [Last Taken Unknown] Prednisone [Prednisone 20Mg] 40 mg PO DAILY 2 Days #4 tab 10/05/18 [Last Taken Unknown] Discharge Plan - Discharge Instructions Activity at Discharge: As Per Physical Therapy Diet at Discharge: Advance to Usual Diet Instructions: Using Oxygen at Home (DC), COPD (Chronic Obstructive Pulmonary Disease) (DC), How to Use a Nebulizer (DC) Additional Instructions: Appointments have been scheduled for you as follows: Dr. Turner with Podiatry at [facility]. Please bring new patient paperwork, enter through Door C. October 12 at 10 AM Selma Phillips NP to establish Primary Care at [facility]. October 14 at 1PM Use your nebulizer machine for your nebulized medications. -duo neb 4 times a day -pulmicort twice a day Wear oxygen 1 liter at rest and 2 liter when ambulating Pulmacort as directed Prednisone as directed Resume other home meds Activity as tolerated, using the walker Diet as tolerated Return to the emergency department if worse in any way. Quality Measures - Quality Measures Quality Measures: Advance Directives, Documentation of Current Medications in Medical Record, Elder Maltreatment Screen and Follow-Up Plan, Screening for High Blood Pressure and F/U Documented - Current Medications Quality Measure: Measure #130: Documentation of Current Medications Documentation of Current Medications: <Current Medications Documented/Reviewed> [G8427] - Blood Pressure Screening Quality Measure: Screening for High Blood Pressure and Follow-Up Documented Does Patient Have Any of the Following: Active Dx of HTN Blood Pressure Classification: Hypertensive Reading Systolic Measurement: 225 Diastolic Measurement: 107 Screening for High Blood Pressure: Patient Exclusion, Hx of HTN [G9744] - Advance Directives Quality Measure: Measure #47: Care Plan Advance Directives Established: No Advance Directives Information Provided To Patient: No Advance Directives on File: No Living Will: No Power of Medical Claims Representative: No Advance Care Planning: <Care Plan/Decision Maker Documented; Discussed & Documented> [1123F] - Elder Abuse Suspicion Index Screening: Elder Abuse Suspicion Index Screening Rely on people for bathing, dressing, shopping, banking, etc: Yes Prevented from getting food, clothes, medication, etc: No Made to feel shamed or threatened by someone: No Forced to sign papers or use money against will: No Feel afraid, touched in ways not wanted or hurt physically: No Poor eye contact, withdrawn, malnourished, cuts or bruises: No Screening Result: Negative result EASI Reference Information: Micah STEIN, Felicia Carmen, Arik Rolon, Donya Spivey.Development and validation of a tool to assist physicians identification of elder abuse: The Elder Abuse Suspicion Index (EASI ). Journal of Elder Abuse and Neglect, 2008; 20 (3): 276-300. - Elder Maltreatment Screen Quality Measures: Elder Maltreatment Screen and Follow-Up Plan Elder Maltreatment Screen: <Negative, No Follow-Up Plan Required> [G8734]
--- NOTE | 2018-10-05 11:18 | Rehab Evaluation ---
Patient Information - Patient Information Diagnosis: COPD with acute exacerbation, hypoxia Ordered Treatment: OT Evaluate and Treat Status: Initial Evaluation Surgery: No Past Medical/Surgical Hx: PAST MEDICAL/SURGICAL HISTORY Past Surgical History cardiac stent femoral stents chest (15 yrs old from tb) PMH - Respiratory Hx Respiratory Disorders Yes Hx Bronchitis Yes Hx Chronic Obstructive Yes: no official dx Pulmonary Disease (COPD) Hx Dyspnea Yes Hx Tuberculosis Yes PMH - Cardiovascular Hx Cardiovascular Disorders Yes Hx Abnormal EKG Yes Hx Cardiac Catheterization Yes Hx Heart Attack Yes Hx Hypertension Yes PMH - Neuro Hx Neurological Disorders No Hx Dizziness Yes: occasional Hx Neuropathy Yes PMH - GI Hx Gastrointestinal Disorders No Hx Gastroesophageal Reflux Yes PMH - Hx Genitourinary Disorders No Patient No PMH - Endocrine Hx Endocrine Disorders No Hx Diabetes Yes PMH - Musculoskeletal Hx Musculoskeletal Disorders No Hx Arthritis Yes Hx Back Injury Yes: fx hx PMH - Psych Hx Psychiatric Problems No PMH - Hematology/Oncology Hx Hematology/Oncology No Disorders Premorbid Status: Detail (Pt lives alone in a mobile home with 3 steps and 1 railing at the entrance. Her daughter and son in law live next door. She has a tub that she is unable to climb into and she reports she has not been able to shower or sponge bathe for a while. She has a standard height toilet with a grab bar. She receives meals on wheels and her family complete all other meal prep, laundry and home mgmt tasks. She has a 4 wheeled walker.) Precautions: [place], Fall - Time With Patient Total Time Spent With Patient (Min): 30 Treatment Procedures: Detail (OT eval low complexity) Subjective Information - Subjective Information Per Patient Objective Data - Pain Pain Present: No - Mental Status Patient Orientation: Oriented x3 - Visual Perception Deficit (Pt reports she has macular degeneration and is unable to read.) - ROM Not within normal limits (Jesse shoulder flexion limited significantly, pt reports this is longstanding. 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 Pt was able to demonstrate Ind with transferring into tub with extended tub bench and use of grab bar with mild difficulty.) Therapy Assessment - Therapy Assessment Detail (Pt presents with shortness of breath with ambulation and transfers. She was Ind with partial dressing task. Recommend extended tub bench with grab bar for shower safety.) Problem List - Problem List Occupational Therapy Problem List: Detail (1. Pt presents with decreased endurance needed for self cares and functional mobility. 2. Decreased Ind with tub transfer and showering.) Goals - Goals Occupational Therapy Goals: 1. Pt will improve overall endurance needed for safe and Ind self cares. 2. Pt will be Ind with showering using extended shower seat. Prognosis - Prognosis Good Plan - Plan Occupational Therapy Plan: Recommend home OT to address endurance, UE strength and self care/transfer safety and Ind.
--- NOTE | 2018-10-06 04:58 | RADIOLOGY REPORT ---
EXAM: CHEST, TWO VIEWS HISTORY: POSSIBLE LUNG NODULES. MILD COUGH. TECHNIQUE: Upright AP and lateral views of the chest were obtained. Comparison: Portable chest dated 10/02/18. FINDINGS: The heart is not enlarged and no pulmonary venous hypertension is seen. The thoracic aorta remains mildly tortuous and atherosclerotic. The lungs are hyperinflated consistent with COPD. The reticular opacity prominence within the peripheral lungs on the prior examination appears less pronounced though this may just relate to differences in technique. Dystrophic calcification is again noted at the level of the upper thorax. Diagnostic considerations include soft tissue calcifications, calcified pleural plaques, or calcified granulomata. This pattern is unchanged. The subtle nodular opacities at the mid right hemithorax level on the prior examination do not persist. No new lung consolidation, gross costophrenic angle blunting, or pneumothorax. On the lateral view there is linear scarring versus atelectasis at the posterior upper lung level. Redemonstration of healed granulomatous disease within the mediastinum and lower right lung. IMPRESSION: 1. THE SUBTLE NODULAR OPACITIES PROJECTING AT THE LEVEL OF THE RIGHT MID HEMITHORAX ON THE PRIOR EXAMINATION DO NOT PERSIST. NO NEW ABNORMALITY IDENTIFIED. 2. HYPERINFLATION OF THE LUNGS CONSISTENT WITH COPD. 3. ADDITIONAL CHRONIC FINDINGS, DISCUSSED ABOVE. JOB NUMBER: [id number] AND [id number] [facility]
== END 2018-10-05 15:35 | disposition home health service (06) ==
LOC: ER 21:55 → MEDSURG 10-03 00:05
PROVIDERS: ADMIT Internal Medicine; ATTEND Internal Medicine
DX: J44.1 Chronic obstructive pulmonary disease with (acute) exacerbation (principal); R09.02 Hypoxemia; E87.1 Hypo-osmolality and hyponatremia; I10 Essential (primary) hypertension; E78.5 Hyperlipidemia, unspecified; I25.2 Old myocardial infarction; E11.9 Type 2 diabetes mellitus without complications; Z95.5 Presence of coronary angioplasty implant and graft; Z66 Do not resuscitate; Z87.891 Personal history of nicotine dependence; Z86.11 Personal history of tuberculosis; H35.30 Unspecified macular degeneration
CPT/HCPCS: 85025 ×2; 80048 ×2; 80053; 81003; 87070; 87400; 84484; 71045; 71046; 94640 ×4; 94618; 94761 ×3; 94660; 93005; 93010; G0378 ×3; J3490 ×3; 96374; 99217; 99220; 99226; 99285; J1650; J2930; J7613

== ENCOUNTER 2018-11-25 13:04 | Inpatient (IN) | payer MEDICARE, OTHER ==
--- NOTE | 2018-11-25 13:28 | Emergency Department Record ---
History of Present Illness - General Chief Complaint: Fall Injury Stated Complaint: FALL Time Seen by Provider: 11/25/18 13:28 Source: Patient Mode of Arrival: Ambulatory Limitations: No limitations - History of Present Illness Initial Comments: The patient is here due to buttock pain. She was trying to sit down while using her walker and her legs gave out and she landed on her buttocks. She now has buttock and low back pain. She denies hitting her head or any LOC or neck pain. 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: No Place Fall Occurred: Home Loss of Consciousness: None Prolonged Down Time?: No Location: Buttocks Quality: Aching - [place] Coma Scale Eye Response: (4) Open spontaneously Motor Response: (6) Obeys commands Verbal Response: (5) Oriented [place] Total: 15 - Related Data Previous Rx's Medication Instructions Recorded Meclizine HCl [Antivert] 12.5 mg PO BID #20 tab 08/03/18 Acetaminophen [Tylenol 500Mg Tab] 1,000 mg PO Q6H PRN tablet 10/05/18 Budesonide [Pulmicort] 0.5 mg INH RESP.BID #2 box 10/05/18 Ipratropium/Albuterol [Duoneb] 3 ml INH RESP.Q4H.WA #2 box 10/05/18 Allergies Allergy/AdvReac Type Severity Reaction Status Date / Time codeine AdvReac ALTERED Unverified 11/04/18 17:22 MENTAL STATUS Travel Screening - Travel/Exposure Within Last 30 Days Have you traveled within the last 30 days?: No - Travel/Exposure Within Last Year Have you traveled outside the [place] in the last year?: No - Additonal Travel Details Have you been exposed to anyone with a communicable illness?: No - Travel Symptoms Symptom Screening: None Review of Systems Constitutional: Denies: Chills, Fever Eyes: Denies: Eye discharge ENT: Denies: Congestion Respiratory: Denies: Cough, Dyspnea Past Medical History - SOCIAL HISTORY Smoking Status: Former smoker Alcohol Use: None Drug Use: None - RESPIRATORY Hx Respiratory Disorders: Yes Hx Tuberculosis: Yes - CARDIOVASCULAR Hx Cardio Disorders: Yes Hx Abnormal EKG: Yes Hx Heart Attack: Yes Hx Hypertension: Yes - NEURO Hx Neuro Disorders: No Hx Dizziness: Yes (occasional) Hx Neuropathy: Yes - GI Hx GI Disorders: No Hx Reflux: Yes - Hx Genitourinary Disorders: No - ENDOCRINE Hx Endocrine Disorders: No Hx Diabetes: Yes - MUSCULOSKELETAL Hx Musculoskeletal Disorders: No Hx Arthritis: Yes Hx Back Injury: Yes (fx hx) - PSYCH Hx Psych Problems: No - HEMATOLOGY/ONCOLOGY Hx Hematology/Oncology Disorders: No Hx Blood Transfusions: Yes (@age 15?) Family Medical History Any Significant Family History?: No Hx Alcohol Use: Father Hx Dementia: Mother Hx Diabetes: Brother/Sister Hx HTN: Brother/Sister Hx Stroke: Father Physical Exam - General General Appearance: Alert, Oriented x3, Cooperative, No acute distress - Head Head exam: Atraumatic, Normocephalic - Eye Eye exam: Normal appearance - Neck Neck exam: Normal inspection, Full ROM. negative: Tenderness - Respiratory Respiratory exam: Normal lung sounds bilaterally. negative: Respiratory distress - Cardiovascular Cardiovascular Exam: Regular rate, Normal rhythm, Normal heart sounds - GI/Abdominal GI/Abdominal exam: Soft, Normal bowel sounds. negative: Tenderness - Extremities Extremities exam: Normal inspection, Full ROM (There is normal hip ROM with no pain.), Normal capillary refill. negative: Joint swelling, Tenderness - Back Back exam: Reports: Normal inspection, Vertebral tenderness (in the lower lumbar area.) - Neurological Neurological exam: Alert, Normal gait, Oriented X3. negative: Abnormal gait, Altered, Motor sensory deficit Course Vital Signs 11/25/18 13:07 Temperature 98.4 F Pulse Rate 68 Respiratory 20 Rate Blood Pressure 140/78 Pulse Ox 95 - Reevaluation(s) Reevaluation #1: The patient is doing better at this time with the pain medicine but still does have some pain. 11/25/18 16:00 Reevaluation #2: The patient is doing better but does have significant pain when up walking. She does live home alone and does walk with a walker and does need to go up stairs. The patient's family does not feel the patient can get up stairs in this much pain and believes the patient should be admitted overnight for PT/OT and pain control and the patient does agree. I then did discuss the case with Sirena and she does agree to the plan. 11/25/18 17:54 Medical Decision Making - Data Complexity MDM Data: X-Ray Ordered and/or Reviewed - Radiology Data Radiology results: Report reviewed (LS spine: Prob old L1 and new mild L4 comp fx. CT: Multilevel disease but new mild L4 compression fx.) Disposition Disposition: Admit Clinical Impression: Lumbar compression fracture Qualifiers: Encounter type: initial encounter Lumbar vertebra fracture level: L4 Fracture type: closed Qualified Code(s): S32.040A - Wedge compression fracture of fourth lumbar vertebra, initial encounter for closed fracture Disposition: Still a Patient at [facility] Decision to Admit: Admit from ER Decision to Admit Date: 11/25/18 Decision to Admit Time: 17:57 Accepting Physician: Melinda Time Discussed w/Accepting Physician: 17:57 Condition: (2) Stable Forms: Patient Portal Access Time of Disposition: 17:57 Quality - Quality Measures Quality Measures: N/A - Blood Pressure Screening View Details: Yes Does Patient Have Any of the Following: Active Dx of HTN Blood Pressure Classification: Hypertensive Reading Systolic Measurement: 140 Diastolic Measurement: 78 Screening for High Blood Pressure: Patient Exclusion, Hx of HTN [G9744]
[2018-11-25] MEDS ORDERED: ACETAMINOPHEN 325 MG TAB PO ONE (13:31)
[2018-11-25] MEDS ORDERED: HYDROCODONE/APAP 5/325MG TABLET PO ONE (15:31)
[2018-11-25] MEDS ORDERED: HYDROCODONE/APAP 5/325MG TABLET PO PRN (20:10)
[2018-11-25] MEDS ORDERED: ACETAMINOPHEN 325 MG TAB PO PRN (20:10)
[2018-11-25] MEDS: IPRATROPIUM/ALBUTEROL (0.5MG/3MG) NEB INH SCH ×2 (21:33→21:38)
[2018-11-25] MEDS: BUDESONIDE 0.5 MG/2 ML INH SCH (21:33)
[2018-11-25] MEDS: CARVEDILOL 3.125 MG TABLET PO SCH (23:07)
[2018-11-25] MEDS: MECLIZINE 25 MG TABLET PO SCH (23:07)
[2018-11-25] MEDS: SIMVASTATIN 80 MG PO SCH (23:08)
[2018-11-25] MEDS: GABAPENTIN 800 MG PO SCH (23:08)
[2018-11-25] MEDS: SUCRALFATE 1 GM PO SCH (23:09)
[2018-11-25] MEDS: HYDROCODONE/APAP 5/325MG TABLET PO PRN (23:09)
[2018-11-26] MEDS: IPRATROPIUM/ALBUTEROL (0.5MG/3MG) NEB INH SCH ×6 (00:16→22:24)
[2018-11-26] MEDS: HYDROCODONE/APAP 5/325MG TABLET PO PRN ×2 (03:42→11:39)
[2018-11-26] MEDS: BUDESONIDE 0.5 MG/2 ML INH SCH ×2 (05:48→18:18)
[2018-11-26 07:03] LABS: BASO % 0.1 % (0-6); GRAN % 57.4 % (47-80); HEMATOCRIT 37.1 % (35.0-47.0); HEMOGLOBIN 11.8 gm/dl (11.6-16.0); LYMPH % 32.1 % (16-45); MEAN CELL VOLUME 83.9 fl (81-97); MEAN CORPUSCULAR HEMOGLOBIN 26.7 pg (27-33); MEAN CORPUSCULAR HGB CONC 31.8 g/dl (32-36); MONO % 8.4 % (0-9); PLATELET COUNT 265 K/uL (130-400); RED BLOOD COUNT 4.42 M/uL (3.80-5.40); RED CELL DISTRIBUTION WIDTH 14.9 % (11.5-14.5)
[2018-11-26 07:23] LABS: ALB/GLOB RATIO 1.3 (1.1-1.8); ALBUMIN 3.7 g/dL (4.0-5.0); ALKALINE PHOSPHATASE 71 U/L (35-104); ALT/SGPT 12 U/L (<33); AST/SGOT 12 U/L (10.0-35.0); BLOOD UREA NITROGEN 18 mg/dL (8-23); CREATININE 0.7 mg/dL (0.5-0.9); EST GLOMERULAR FILTRATION RATE > 60 mL/min; GLUCOSE,RANDOM 101 mg/dL (74-109); TOTAL PROTEIN 6.5 g/dL (6.6-8.7)
--- NOTE | 2018-11-26 07:34 | RADIOLOGY REPORT ---
EXAM: LUMBAR SPINE, AP AND LATERAL VIEWS HISTORY: LOW BACK AND SACRAL PAIN POST FALL. TECHNIQUE: AP and lateral views of the lumbar spine were obtained as well as a spot lateral view of the lumbosacral junction. Comparison: Same day single view of the pelvis. FINDINGS: There is diffuse osteopenia. Five non-rib bearing lumbar type vertebra are identified. There is superior end plate compression deformity involving L1. This is severe, most pronounced centrally. The central height measures 7 mm while the central height of L2 measures 36 mm. This is age indeterminate. Mild retropulsion of bone is suspected. There is associated focal kyphosis at the T12-L1 level. Additionally, there is age indeterminate mild superior end plate compression deformity of L4 without gross retropulsion of bone. The vertebral bodies are otherwise normal in height. There is minimal anterolisthesis of L4 on L5 likely relating to facet arthropathy. Mild dextroconvex curvature is present centered at the L1 level. The vertebral bodies are otherwise normal in alignment. Mild multilevel degenerative disk/degenerative end plate changes throughout the lumbar spine. Facet arthropathy is noted at the lower lumbar levels bilaterally where it is moderate to advanced. There is diffuse atherosclerosis without aneurysmal dilatation of the abdominal aorta. Common iliac artery stents are in place. IMPRESSION: 1. SUPERIOR END PLATE COMPRESSION OF L1, SEVERE CENTRALLY WITH PROBABLE MILD RETROPULSION OF BONE. THIS IS AGE INDETERMINATE. 2. MINOR AGE INDETERMINATE SUPERIOR END PLATE COMPRESSION DEFORMITY OF L4 WITHOUT GROSS RETROPULSION OF BONE. 3. MULTILEVEL DEGENERATIVE CHANGES ASSOCIATED WITH MINOR DEXTROCONVEX CURVATURE CENTERED AT THE L1 LEVEL. MINIMAL ANTEROLISTHESIS OF L4 ON L5 LIKELY RELATES TO FACET ARTHROPATHY. JOB NUMBER: [id number] [facility]
--- NOTE | 2018-11-26 07:39 | RADIOLOGY REPORT ---
EXAM: PELVIS COMPLETE HISTORY: PAIN POST FALL. TECHNIQUE: AP and both oblique views of the pelvis are obtained. Comparison: Same day radiographic examination of the lumbar spine. FINDINGS: There is diffuse osteopenia. No definite acute fracture nor dislocation. There are mild degenerative changes of the hips and sacroiliac joints. The minor superior end plate compression deformity of L4 demonstrated on same day radiographic examination of the lumbar spine is not visualized with confidence. There are degenerative changes of the lower lumbar spine. There is diffuse atherosclerosis. Common iliac artery stents are in place. IMPRESSION: 1. DIFFUSE OSTEOPENIA LIMITS EVALUATION. 2. NO DEFINITE ACUTE PELVIC FRACTURE. 3. MILD DEGENERATIVE CHANGES OF THE HIPS AND SACROILIAC JOINTS. 4. THE MINOR SUPERIOR END PLATE COMPRESSION DEFORMITY OF L4 SUGGESTED ON SAME DAY RADIOGRAPHIC EXAMINATION OF THE LUMBAR SPINE IS NOT VISUALIZED WITH CONFIDENCE. JOB NUMBER: [id number] MTDD
--- NOTE | 2018-11-26 08:01 | CT SCAN REPORT ---
EXAM: LUMBAR SPINE CT WITHOUT CONTRAST HISTORY: PATIENT FELL WHILE TRYING TO SIT DOWN WITH LOW BACK PAIN. COMPRESSION FRACTURES AT L1 AND L4 ON PLAIN FILMS, CT REQUESTED FOR FURTHER EVALUATION. TECHNIQUE: Axial CT scan of the entire lumbar spine was performed without IV contrast. Scans begin at the body of T10 and extend down into the lower sacrum. Comparison: No prior lumbar CT. Comparison is made with the plain film lumbar spine series dated 11/25/18 from earlier this afternoon. Encounter: Initial. FINDINGS: There is a moderate hiatal hernia present. Very heavy calcification of the abdominal aorta to the point where there may be occlusion of the abdominal aorta right at the bifurcation. Quite prominent calcification of the iliacs as well possibly with occlusion of the proximal common iliacs bilaterally by the extensive calcification. There is apparent bilateral aorto, iliac stent grafts in place. The aortoiliac vascular system is incompletely evaluated on this lumbar spine CT without IV contrast. If clinically warranted , follow-up aortoiliac CTA could be obtained for further evaluation. Apparent prominent distention of the urinary bladder. Central renal calcifications are probably renal arterial in nature rather than nonobstructing intrarenal calculi. There is prominent compression of the body of L1 most prominent centrally where the craniocaudal diameter in the mid portion of the body is only about 3.5 mm in height. There is some retropulsion of the superior end plate of L1 by about 4.6 mm. I suspect this compression is chronic in nature although old films would be useful to confirm. There is also moderate compression of the superior end plate of the body of L4. There is no appreciable associated sclerosis with this and I suspect this is an acute compression fracture. The fracture does not appear to extend back into the posterior elements. There is minimal retropulsion of the superior end plate of L4 by about 2.6 mm. There is also slight anterior subluxation of L4 and L5 which appears to be on the basis of fairly extensive facet joint arthropathy at this level. There is a cleft in the transverse process of L1 on the right which appears to be developmental. No additional fractures of the lumbar spine identified. CT, particularly without IV contrast, is not as sensitive as MRI for evaluation of the soft tissue structures of the spine including the disk spaces and the intraspinal content, however, there foes appear to be some central stenosis at the L4-L5 level due to a combination of bulging annulus, facet joint arthropathy , ligamenta flava hypertrophy, and slight anterior subluxation of L4 on L5. IMPRESSION: 1. PROMINENT COMPRESSION FRACTURE OF THE BODY OF L1 WITH SOME RETROPULSION OF THE SUPERIOR END PLATE. THIS IS PROBABLY CHRONIC ALTHOUGH COMPARISON WITH OLD FILMS WOULD BE USEFUL TO CONFIRM. 2. MILD TO MODERATE COMPRESSION OF THE SUPERIOR END PLATE OF L4 IS PROBABLY ACUTE ALTHOUGH AGAIN COMPARISON WITH OLD FILMS WOULD BE USEFUL TO CONFIRM. MILD RETROPULSION OF THE SUPERIOR END PLATE. 3. DEGENERATIVE CHANGES PARTICULARLY AT THE L4-L5 LEVEL WHERE THERE IS A COMPONENT OF CENTRAL STENOSIS. 4. BILATERAL AORTOILIAC STENTS. EXTENSIVE CALCIFICATION OF THE DISTAL AORTA AT ABOUT THE LEVEL OF THE BIFURCATION AND ALSO OF THE PROXIMAL COMMON ILIACS DESCRIBED ABOVE. 5. SMALL HIATAL HERNIA. 6. THERE IS A LARGE FLUID DENSITY STRUCTURE IN THE MID PELVIS IN THE LOWER IMAGES, PRESUMABLY A CONSIDERABLY DISTENDED BLADDER. JOB NUMBER: [id number] MTDD
[2018-11-26] MEDS ORDERED: 0.9 % SODIUM CHLORIDE 1,000 ML BAG IV ONE (08:23)
[2018-11-26] MEDS: GABAPENTIN 800 MG PO SCH ×3 (09:32→21:48)
[2018-11-26] MEDS: MECLIZINE 25 MG TABLET PO SCH ×2 (09:32→21:47)
[2018-11-26] MEDS: ASPIRIN 81 MG TABEC PO SCH (09:33)
[2018-11-26] MEDS: LOSARTAN POTASSIUM 100 MG TABLET PO SCH (09:33)
[2018-11-26] MEDS: HYDROCHLOROTHIAZIDE 25 MG TABLET PO SCH (09:33)
[2018-11-26] MEDS: CARVEDILOL 3.125 MG TABLET PO SCH ×2 (09:33→21:48)
[2018-11-26] MEDS: ISOSORBIDE MONONITRATE 30 MG TAB.ER.24H PO SCH (09:33)
[2018-11-26] MEDS: CLOPIDOGREL 75MG TABLET PO SCH (09:33)
--- NOTE | 2018-11-26 11:08 | History & Physical ---
History of Present Illness - Date of Service Date of Service for History & Physical: 11/26/18 - History of Present Illness Admitting Diagnosis: 1. Acute L 4 Compression fx. History of Present Illness: Pt. is a 83 year-old female who presented to the ED the evening of 11/25 for c /o buttock pain. She was trying to sit down while using her walker and her legs gave out and she landed on her buttocks. She now has buttock and low back pain. She denies hitting her head or any LOC or neck pain. She was accompanied by her family. Her history includes hyponatremia (eats bullion cubes daily at home), ex-smoker, hx TB at age 15, neuropathy, macular degeneration, impaired hearing, HTN, [place], GERD, arthritis, and compression fractures of the spine. In the ED, xray revealed new mild L4 compression fracture (old L1 fx), CT was consistent, demonstrated multilevel disc disease. Pt. lives independently and uses a walker at home. Her family did not feel pt would be able to go up stairs at her home due to pain. Pt. was admitted observation- planned PT/OT eval and pain control. 11/26/18: Pt. is resting in bed, she reports improvement in her pain, however, she has not ambulated yet this morning. PT/OT eval ordered, consult to case management ordered to assess for possible need for home nursing vs. placement. PCP: MATTHEW Mcwilliams Travel Screening - Travel/Exposure Within Last 30 Days Have you traveled within the last 30 days?: No - Travel/Exposure Within Last Year Have you traveled outside the [place] in the last year?: No - Additonal Travel Details Have you been exposed to anyone with a communicable illness?: No - Travel Symptoms Symptom Screening: None Review of Systems Constitutional: Denies: Chills, Fever Eyes: Denies: Eye discharge ENT: Denies: Congestion Respiratory: Denies: Cough, Dyspnea Past Medical History - SOCIAL HISTORY Smoking Status: Former smoker Alcohol Use: None Drug Use: None - RESPIRATORY Hx Respiratory Disorders: Yes Hx Tuberculosis: Yes - CARDIOVASCULAR Hx Cardio Disorders: Yes Hx Abnormal EKG: Yes Hx Heart Attack: Yes Hx Hypertension: Yes - NEURO Hx Neuro Disorders: No Hx Dizziness: Yes (occasional) Hx Neuropathy: Yes - GI Hx GI Disorders: No Hx Reflux: Yes - Hx Genitourinary Disorders: No - ENDOCRINE Hx Endocrine Disorders: No Hx Diabetes: Yes - MUSCULOSKELETAL Hx Musculoskeletal Disorders: No Hx Arthritis: Yes Hx Back Injury: Yes (fx hx) - PSYCH Hx Psych Problems: No - HEMATOLOGY/ONCOLOGY Hx Hematology/Oncology Disorders: No Hx Blood Transfusions: Yes (@age 15?) Family Medical History Any Significant Family History?: Yes Hx Alcohol Use: Father Hx Dementia: Mother Hx Diabetes: Brother/Sister Hx HTN: Brother/Sister Hx Stroke: Father H&P Meds/Allergies - Allergies Allergies: Allergies Allergy/AdvReac Type Severity Reaction Status Date / Time codeine AdvReac ALTERED Unverified 11/04/18 17:22 MENTAL STATUS - Home Medications Previous Rx's Medication Instructions Recorded Meclizine HCl [Antivert] 12.5 mg PO BID #20 tab 08/03/18 Acetaminophen [Tylenol 500Mg Tab] 1,000 mg PO Q6H PRN tablet 10/05/18 Budesonide [Pulmicort] 0.5 mg INH RESP.BID #2 box 10/05/18 Ipratropium/Albuterol [Duoneb] 3 ml INH RESP.Q4H.[place] #2 box 10/05/18 - Active Medications Active Medications: Current Medications Acetaminophen (Tylenol 325mg) 650 mg PO Q6H PRN PRN Reason: PAIN - MILD(1-4)/FEVER Hydrocodone Bitart/Acetaminophen ([place] 5mg/325mg) 2 each PO Q6H PRN PRN Reason: PAIN - MILD TO MODERATE (1-7) Last Admin: 11/26/18 03:42 Dose: 2 each Albuterol/Ipratropium (Duoneb) 3 ml INH RESP.Q4H.[facility] Last Admin: 11/26/18 10:09 Dose: 3 ml Aspirin (Ecotrin (Ec)) 81 mg PO DAILY [facility] Last Admin: 11/26/18 09:33 Dose: 81 mg Budesonide (Pulmicort) 0.5 mg INH RESP.BID [facility] Last Admin: 11/26/18 05:48 Dose: 0.5 mg Carvedilol (Coreg) 3.125 mg PO BID [facility] Last Admin: 11/26/18 09:33 Dose: 3.125 mg Clopidogrel Bisulfate (Plavix) 75 mg PO DAILY [facility] Last Admin: 11/26/18 09:33 Dose: 75 mg Hydrochlorothiazide (Hctz 25mg) 25 mg PO DAILY [facility] Last Admin: 11/26/18 09:33 Dose: 25 mg Sodium Chloride () 1,000 mls @ 125 mls/hr IV .Q8H PRN PRN Reason: LARGE VOLUME IV Isosorbide Mononitrate (Imdur) 30 mg PO DAILY [facility] Last Admin: 11/26/18 09:33 Dose: 30 mg Losartan Potassium (Losartan Potassium) 100 mg PO DAILY [facility] Last Admin: 11/26/18 09:33 Dose: 100 mg Meclizine HCl (Antivert) 12.5 mg PO BID [facility] Last Admin: 11/26/18 09:32 Dose: 12.5 mg Gabapentin [ (Gabapentin] 800 Mg) 1 each PO TID [facility] Last Admin: 11/26/18 09:32 Dose: 1 each Omeprazole 40 Mg 1 each PO DAILY [facility] Last Admin: 11/26/18 09:32 Dose: 1 each Simvastatin [Zocor] (80 Mg) 1 each PO QHS [facility] Last Admin: 11/25/18 23:08 Dose: 1 each Sucralfate [Carafate (] 1 Gm) 1 each PO QHS [facility] Last Admin: 11/25/18 23:09 Dose: 1 each Physical Exam - Vital Signs Vital Signs: Vital Signs - Last 24 Hrs Temp Pulse Pulse Resp BP BP Pulse Ox 11/26/18 10:09 89 18 99 11/26/18 07:50 76 20 11/26/18 02:10 97.8 F 86 18 134/73 90 L 11/25/18 22:10 107 H 18 137/70 93 L 11/25/18 20:00 98.3 F 94 H 18 161/84 91 L 11/25/18 19:30 76 16 11/25/18 18:33 91 H 16 158/85 93 L 11/25/18 18:08 96 H 18 195/80 93 L 11/25/18 16:48 78 16 152/76 93 L 11/25/18 15:30 89 16 176/77 93 L 11/25/18 13:07 98.4 F 68 20 140/78 95 - General General Appearance: Alert, Oriented x3, Cooperative, No acute distress Limitations: No limitations - Head Head exam: Atraumatic, Normocephalic - Eye Eye exam: Normal appearance - Neck Neck exam: Normal inspection, Full ROM. negative: Tenderness - Respiratory Respiratory exam: Normal lung sounds bilaterally. negative: Respiratory distress - Cardiovascular Cardiovascular Exam: Regular rate, Normal rhythm, Normal heart sounds - GI/Abdominal GI/Abdominal exam: Soft, Normal bowel sounds. negative: Tenderness - Extremities Extremities exam: Normal inspection, Full ROM (There is normal hip ROM with no pain.), Normal capillary refill. negative: Joint swelling, Tenderness - Back Back exam: Reports: Normal inspection, Vertebral tenderness (in the lower lumbar area.) - Neurological Neurological exam: Alert, Normal gait, Oriented X3. negative: Abnormal gait, Altered, Motor sensory deficit Results - Labs Result Diagrams: 11/26/18 06:45 11/26/18 06:45 Labs Last 24 Hours: Laboratory Results - last 24 hr 11/26/18 11/26/18 06:45 06:45 WBC 8.0 RBC 4.42 Hgb 11.8 Hct 37.1 MCV 83.9 MCH 26.7 L MCHC 31.8 L RDW 14.9 H Plt Count 265 MPV 9.0 Gran % 57.4 Lymphocytes % 32.1 Monocytes % 8.4 Eosinophils % 2.0 Basophils % 0.1 Sodium 129 L Potassium 4.1 Chloride 89 L Carbon Dioxide 27.0 Anion Gap 13.0 BUN 18 Creatinine 0.7 Estimated GFR > 60 Random Glucose 101 Calcium 9.6 Total Bilirubin 0.40 AST 12 ALT 12 Alkaline Phosphatase 71 Total Protein 6.5 L Albumin 3.7 L Globulin 2.8 Albumin/Globulin Ratio 1.3 VTE H&P Assessment - Risk for VTE Risk for VTE: Yes Risk Level: Low Risk Assessment Date: 11/26/18 Risk Assessment Time: 12:37 VTE Orders Placed or Will Be Placed: No VTE Reason for No Prophylaxis: Contraindicated (Currently on plavix 75mg daily) Plan - Detailed Diagnosis and Plan (1) Lumbar compression fracture Current Visit: Yes Status: Acute Qualifiers: Encounter type: initial encounter Lumbar vertebra fracture level: L4 Fracture type: closed Qualified Code(s): S32.040A - Wedge compression fracture of fourth lumbar vertebra, initial encounter for closed fracture Base Code: S32.000A - WEDGE COMPRESSION FRACTURE OF UNSP LUMBAR VERTEBRA, INIT Comment: 11/26/18: -New mild L4 compression fracture -Continue norco 5/325mg q4h for pain -PT/OT eval ordered today (2) Hyponatremia Current Visit: No Status: Acute Base Code: E87.1 - HYPO-OSMOLALITY AND HYPONATREMIA Comment: 11/26/18: -Sodium this am was 129, ordered 500ml bolus of 0.9% NaCl and then 125ml/hr -Will recheck labs at 1600 (3) DVT prophylaxis Current Visit: No Status: Acute Base Code: FLH1961 - Comment: 11/26/18: -Continue home plavix 75mg daily and ASA 81mg daily (4) Weakness Current Visit: Yes Status: Acute Base Code: R53.1 - WEAKNESS Comment: 11/26: -Likely secondary to deconditioning and hyponatremia -PT/OT eval and case management consult ordered today- will assess need for home health services (5) DNR (do not resuscitate) Current Visit: No Status: Acute Base Code: Z66 - DO NOT RESUSCITATE Comment: 11/26/18: -Pt. is a DNR
[2018-11-26] MEDS: 0.9 % SODIUM CHLORIDE 1000ML 1,000 ML IV PRN ×2 (12:14→20:37)
[2018-11-26 16:53] LABS: BLOOD UREA NITROGEN 26 mg/dL (8-23); CREATININE 0.9 mg/dL (0.5-0.9); EST GLOMERULAR FILTRATION RATE > 60 mL/min; GLUCOSE,RANDOM 114 mg/dL (74-109)
--- NOTE | 2018-11-26 18:45 | Rehab Evaluation ---
Patient Information - Patient Information Diagnosis: Acute L4 compression fx, s/p fall Ordered Treatment: PT Evaluate and Treat Status: Initial Evaluation Surgery: No History: Detail (Pt presented to ED 11/25/18 after a fall at home, in which she describes backing up to her recliner to sit and missing the chair. She states she landed hard and knew "something had happened". Subsequent diagnostic assessments indicated new L4 compression fx.) Past Medical/Surgical Hx: PAST MEDICAL/SURGICAL HISTORY Past Surgical History cardiac stent femoral stents chest (15 yrs old from tb) PMH - Respiratory Hx Respiratory Disorders Yes Hx Bronchitis Yes Hx Chronic Obstructive Yes: no official dx Pulmonary Disease (COPD) Hx Dyspnea Yes Hx Tuberculosis Yes PMH - Cardiovascular Hx Cardiovascular Disorders Yes Hx Abnormal EKG Yes Hx Cardiac Catheterization Yes Hx Heart Attack Yes Hx Hypertension Yes PMH - Neuro Hx Neurological Disorders No Hx Dizziness Yes: occasional Hx Neuropathy Yes PMH - GI Hx Gastrointestinal Disorders No Hx Gastroesophageal Reflux Yes PMH - Hx Genitourinary Disorders No Patient No PMH - Endocrine Hx Endocrine Disorders No Hx Diabetes Yes PMH - Musculoskeletal Hx Musculoskeletal Disorders No Hx Arthritis Yes Hx Back Injury Yes: fx hx PMH - Psych Hx Psychiatric Problems No PMH - Hematology/Oncology Hx Hematology/Oncology No Disorders Premorbid Status: Detail (Pt reports that she was ambulating independently w/ four wheeled walker within her home, and that she was independent with all self- care activities except for showering.) Social History: Detail (Pt lives alone in a single story home next door to her daughter Samia and son-in-law. She states that she gets Meals on Wheels and her son-in-law sometimes cooks for her; her daughter does laundry and housecleaning, and she assists with showering. Pt reports previous falls in which she didn't injure herself, but she has not been able to get up by herself when she has fallen.) Precautions: [place], Fall - Time With Patient Total Time Spent With Patient (Min): 50 Treatment Procedures: Detail (PT Evaluation) Subjective Information - Subjective Information Per Patient (Pt in bed upon arrival, sleeping but awakened easily. Pt states that she has no pain lying in bed, but has had pain with movement.) Objective Data - Pain Pain Present: Yes Pain Intensity: 5 (Low back) Pain Scale Used: Numeric (1 - 10) (Pt reported this level of pain prior to mobility assessment. She denied any pain with mobility assessment.) - Mental Status Patient Orientation: Oriented x3 - Visual Perception Deficit (Pt reports macular degeneration, states she can see TV but can't make out details.) - ROM Within normal limits (In B lower extremities, except for possible gastrocnemius tightness.) - Strength/Tone Within normal limits (Exhibits 4/5 to 4+/5 strength in major muscle groups of B LE's) - Coordination Appears within normal limits for therapeutic activities - Bed Mobility Independent - Transfers Needs Assist (Supervision for sit to stand to front-wheeled walker; patient felt uncomfortable with front-wheeled walker; uses 4 wheeled walker at home. Unsafely returned to sitting at edge of bed after taking several steps away from bed, requiring moderate assist to reach bed. Performed stand pivot transfer to recliner next to bed with moderate assist to safely reach bed, as she stood easily, but had difficulty pivoting and tried to sit before being in front of chair.) - Balance Balance Sitting: Good Balance Standing: Good (With front-wheeled walker) - Sensation Intact - Gait Detail (Attempted ambulating with front-wheeled walker. Pt was hesitant, stated she felt unsafe with front-wheeled walker, reported difficulty "getting her feet to move". Took several steps away from bed then rapidly/unsafely tried to sit back down onto bed, requiring mod assist to reach bed.) Therapy Assessment - Therapy Assessment Detail (Pt is independent with bed mobility and exhibits good sitting and static standing balance. Exhibits difficulty with stepping/walking and seems somewhat impulsive with transfers. Family is bringing walker from home to try. Pt will benefit from further assessment of mobility with familiar walker. Pain did not interfere with mobility assessment.) Patient Education - Patient Education Teaching Topic: Equipment Use, Precautions Response: Reinforcement Needed Teaching Method: Discussion Teaching Recipient: Patient Barriers To Learning: Age Related Problem List - Problem List Physical Therapy Problem List: Detail (1. Difficulty walking 2. Poor dynamic standing balance. 3. Unsafe transfers.) Goals - Goals Physical Therapy Goals: 1. Pt will safely ambulate over household distances with four wheeled walker with supervision. 2. Pt will safely perform transfers to/from chair/bed/commode. 3. Pt will ascend/descend three steps with CGA w/ appropriate assistive device. Prognosis - Prognosis Good Plan - Plan Physical Therapy Plan: Pt will be seen 1-2 times daily M-F for transfer training and gait training.
[2018-11-26] MEDS: SIMVASTATIN 80 MG PO SCH (21:49)
[2018-11-26] MEDS: SUCRALFATE 1 GM PO SCH (21:49)
[2018-11-27] MEDS: 0.9 % SODIUM CHLORIDE 1000ML 1,000 ML IV PRN (04:43)
[2018-11-27] MEDS: BUDESONIDE 0.5 MG/2 ML INH SCH ×2 (06:25→21:35)
[2018-11-27] MEDS: IPRATROPIUM/ALBUTEROL (0.5MG/3MG) NEB INH SCH ×5 (06:25→21:35)
[2018-11-27 06:50] LABS: BASO % 0.2 % (0-6); EOS % 2.9 % (0-6); GRAN % 66.5 % (47-80); HEMATOCRIT 35.4 % (35.0-47.0); HEMOGLOBIN 11.1 gm/dl (11.6-16.0); LYMPH % 22.1 % (16-45); MEAN CELL VOLUME 84.3 fl (81-97); MEAN CORPUSCULAR HEMOGLOBIN 26.4 pg (27-33); MEAN CORPUSCULAR HGB CONC 31.4 g/dl (32-36); MEAN PLATELET VOLUME 9.1 fl (7.4-10.4); MONO % 8.3 % (0-9); PLATELET COUNT 242 K/uL (130-400); RED CELL DISTRIBUTION WIDTH 15.2 % (11.5-14.5); WHITE BLOOD COUNT W/O DIFF 8.3 K/uL (4.2-12.2)
[2018-11-27 07:02] LABS: ALB/GLOB RATIO 1.3 (1.1-1.8); ALBUMIN 3.6 g/dL (4.0-5.0); ALKALINE PHOSPHATASE 71 U/L (35-104); ALT/SGPT 11 U/L (<33); AST/SGOT 11 U/L (10.0-35.0); BLOOD UREA NITROGEN 19 mg/dL (8-23); CREATININE 0.6 mg/dL (0.5-0.9); EST GLOMERULAR FILTRATION RATE > 60 mL/min; GLUCOSE,RANDOM 94 mg/dL (74-109); TOTAL PROTEIN 6.3 g/dL (6.6-8.7)
[2018-11-27] MEDS: MECLIZINE 25 MG TABLET PO SCH ×2 (09:48→22:59)
[2018-11-27] MEDS: HYDROCODONE/APAP 5/325MG TABLET PO PRN ×2 (09:49→17:58)
[2018-11-27] MEDS: LOSARTAN POTASSIUM 100 MG TABLET PO SCH (09:49)
[2018-11-27] MEDS: CLOPIDOGREL 75MG TABLET PO SCH (09:49)
[2018-11-27] MEDS: CARVEDILOL 3.125 MG TABLET PO SCH ×2 (09:49→22:59)
[2018-11-27] MEDS: GABAPENTIN 800 MG PO SCH ×3 (09:50→22:59)
[2018-11-27] MEDS: ASPIRIN 81 MG TABEC PO SCH (09:58)
--- NOTE | 2018-11-27 10:15 | Physical Therapy Tx Note ---
Physical Therapy Tx Note - Treatment Note Tolerated: Good Total Time Spent With Patient: 20 Physical Therapy Tx Note: Detail (Pt sitting up in recliner upon arrival; awake/ alert, cooperative for therapy. C/O being tired of sitting, wants to go back to bed. Declined need for toileting at this time. Sit/stand from recliner w/ CGA, to four wheeled walker; independent management of walker. Took several steps to pivot to bedside, VCs to feel bed on back of legs, CGA. Proper controlled sit, improved from yesterday. Independent into bed, required assist to scoot up in bed. Positioned with bedside table, call light in place. Nrsg notified.) Physical Therapy Problem List: Detail (1. Difficulty walking 2. Poor dynamic standing balance. 3. Unsafe transfers.) Physical Therapy Goals: 1. Pt will safely ambulate over household distances with four wheeled walker with supervision. 2. Pt will safely perform transfers to/from chair/bed/commode. 3. Pt will ascend/descend three steps with CGA w/ appropriate assistive device. Physical Therapy Plan: Pt will be seen 1-2 times daily M-F for transfer training and gait training, LE strengthening.
[2018-11-27] MEDS: ISOSORBIDE MONONITRATE 30 MG TAB.ER.24H PO SCH (10:18)
[2018-11-27] MEDS: HYDROCHLOROTHIAZIDE 25 MG TABLET PO SCH (10:18)
--- NOTE | 2018-11-27 10:32 | Physical Therapy Tx Note ---
Physical Therapy Tx Note - Treatment Note Tolerated: Good Total Time Spent With Patient: 20 Physical Therapy Tx Note: Detail (Pt sitting up in recliner upon arrival, just finished breakfast. Cooperative for therapy; states she's tired of sitting and the chairs in the room aren't very comfortable. Appropriately scooted to edge of chair. Sit to stand to four wheeled walker w/CGA. Stood briefly at walker, took several steps to pivot to edge of bed, w/CGA. Appropriately managed walker , did controlled sit. Independently got into bed, required assist for scooting up in bed. Positioned bedside table and call light in reach; nrsg notified.) Physical Therapy Problem List: Detail (1. Difficulty walking 2. Poor dynamic standing balance. 3. Unsafe transfers.) Physical Therapy Goals: 1. Pt will safely ambulate over household distances with four wheeled walker with supervision. 2. Pt will safely perform transfers to/from chair/bed/commode. 3. Pt will ascend/descend three steps with CGA w/ appropriate assistive device. Physical Therapy Plan: Pt will be seen 1-2 times daily M-F for transfer training and gait training.
--- NOTE | 2018-11-27 10:38 | Inpatient Certification ---
Inpatient Certification Admit to inpatient care: Based on my medical assessment, after consideration of patient's risk factors (age, co-morbidities and patient presenting symptoms and acuity), I expect that this patient will remain in the hospital greater than or equal to two midnights and that the services needed warrant inpatient care because: Patient Risk Factors: [Age, decreased mobility, co-morbidities] Estimated length of stay: [48-96 hours] The patient may reasonably be expected to be discharged or transferred to a hospital within 96 hours after admission to [facility]. Services needed: [lab monitoring, PT/OT services, pain management] Post hospital care (if known): [] I certify that my determination is in accordance with my understanding of Medicare requirements for reasonable and necessary inpatient services. 11/27/18 10:38
--- NOTE | 2018-11-27 10:38 | Physician Progress Note ---
Subjective - Date Date of Physician Progress Note: 11/27/18 Objective - Vital Signs Vital Signs: Vital Signs - Last 24 Hrs Temp Pulse Pulse Resp BP Pulse Ox 11/27/18 10:12 99 H 18 94 L 11/27/18 08:35 96.8 F L 107 H 20 159/61 90 L 11/27/18 08:16 78 20 11/27/18 06:27 91 H 20 91 L 11/27/18 06:00 97.9 F 100 H 22 155/59 89 L 11/27/18 00:38 97.8 F 88 20 96/60 90 L 11/26/18 22:30 84 16 91 L 11/26/18 21:00 84 16 11/26/18 20:00 97.5 F L 92 H 22 105/47 90 L 11/26/18 18:37 86 18 91 L 11/26/18 18:30 98.3 F 87 18 102/58 90 L 11/26/18 13:55 84 20 11/26/18 12:30 98.6 F 84 20 95/46 100 - General General Appearance: Alert, Oriented x3, Cooperative, No acute distress Limitations: No limitations - Head Head exam: Atraumatic, Normocephalic - Eye Eye exam: Normal appearance - Neck Neck exam: Normal inspection, Full ROM. negative: Tenderness - Respiratory Respiratory exam: Normal lung sounds bilaterally. negative: Respiratory distress - Cardiovascular Cardiovascular Exam: Regular rate, Normal rhythm, Normal heart sounds - GI/Abdominal GI/Abdominal exam: Soft, Normal bowel sounds. negative: Tenderness - Extremities Extremities exam: Normal inspection, Full ROM (There is normal hip ROM with no pain.), Normal capillary refill. negative: Joint swelling, Tenderness - Back Back exam: Reports: Normal inspection, Vertebral tenderness (in the lower lumbar area.) - Neurological Neurological exam: Alert, Normal gait, Oriented X3. negative: Abnormal gait, Altered, Motor sensory deficit Assessment and Plan - Assessment and Plan (1) Lumbar compression fracture Current Visit: Yes Status: Acute Qualifiers: Encounter type: initial encounter Lumbar vertebra fracture level: L4 Fracture type: closed Qualified Code(s): S32.040A - Wedge compression fracture of fourth lumbar vertebra, initial encounter for closed fracture Base Code: S32.000A - WEDGE COMPRESSION FRACTURE OF UNSP LUMBAR VERTEBRA, INIT Comment: 11/27/18: -New mild L4 compression fracture -Continue norco 5/325mg q4h for pain -PT/OT eval- unsteadiness noted with attempted ambulation, recommending continuted PT/OT, will consider swing bed program (2) Hyponatremia Current Visit: No Status: Acute Base Code: E87.1 - HYPO-OSMOLALITY AND HYPONATREMIA Comment: 11/27/18: -Repeat sodium today was 127- IV was discontinued due to infiltration. -Will consult anglesmith regarding increasing dietary sources of sodium (3) DVT prophylaxis Current Visit: No Status: Acute Base Code: [id number] - Comment: 11/27/18: -Continue home plavix 75mg daily and ASA 81mg daily (4) Weakness Current Visit: Yes Status: Acute Base Code: R53.1 - WEAKNESS Comment: 11/27: -Likely secondary to deconditioning and hyponatremia -PT/OT eval and case management consult completed -Will continue PT/OT during admission, will plan on pursuing swing bed (5) DNR (do not resuscitate) Current Visit: No Status: Acute Base Code: Z66 - DO NOT RESUSCITATE Comment: 11/27/18: -Pt. is a DNR -signed form in chart Results - Labs Result Diagrams: 11/27/18 06:33 11/27/18 06:33 Labs Last 24 Hours: Laboratory Results - last 24 hr 11/26/18 11/27/18 11/27/18 16:20 06:33 06:33 WBC 8.3 RBC 4.20 Hgb 11.1 L Hct 35.4 MCV 84.3 MCH 26.4 L MCHC 31.4 L RDW 15.2 H Plt Count 242 MPV 9.1 Gran % 66.5 Lymphocytes % 22.1 Monocytes % 8.3 Eosinophils % 2.9 Basophils % 0.2 Sodium 125 L 127 L Potassium 5.2 H 4.6 H Chloride 88 L 93 L Carbon Dioxide 26.0 26.0 Anion Gap 11.0 8.0 BUN 26 H 19 Creatinine 0.9 0.6 Estimated GFR > 60 > 60 Random Glucose 114 H 94 Calcium 8.7 L 9.2 Magnesium 1.6 Total Bilirubin 0.40 AST 11 ALT 11 Alkaline Phosphatase 71 Total Protein 6.3 L Albumin 3.6 L Globulin 2.7 Albumin/Globulin Ratio 1.3 DVT/PE Assessment - Risk for VTE Risk for VTE: No Risk Level: Low Risk Assessment Date: 11/26/18 Risk Assessment Time: 12:37 VTE Orders Placed or Will Be Placed: No VTE Reason for No Prophylaxis: Contraindicated (Currently on plavix 75mg daily) - Active Medicaitons Current Medications: Current Medications Acetaminophen (Tylenol 325mg) 650 mg PO Q6H PRN PRN Reason: PAIN - MILD(1-4)/FEVER Hydrocodone Bitart/Acetaminophen ([place] 5mg/325mg) 2 each PO Q6H PRN PRN Reason: PAIN - MILD TO MODERATE (1-7) Last Admin: 11/27/18 09:49 Dose: 2 each Albuterol/Ipratropium (Duoneb) 3 ml INH RESP.Q4H.[facility] Last Admin: 11/27/18 10:12 Dose: 3 ml Aspirin (Ecotrin (Ec)) 81 mg PO DAILY [facility] Last Admin: 11/27/18 09:58 Dose: 81 mg Budesonide (Pulmicort) 0.5 mg INH RESP.BID [facility] Last Admin: 11/27/18 06:25 Dose: 0.5 mg Carvedilol (Coreg) 3.125 mg PO BID [facility] Last Admin: 11/27/18 09:49 Dose: 3.125 mg Clopidogrel Bisulfate (Plavix) 75 mg PO DAILY [facility] Last Admin: 11/27/18 09:49 Dose: 75 mg Hydrochlorothiazide (Hctz 25mg) 25 mg PO DAILY [facility] Last Admin: 11/27/18 10:18 Dose: 25 mg Sodium Chloride () 1,000 mls @ 125 mls/hr IV .Q8H PRN PRN Reason: LARGE VOLUME IV Last Infusion: 11/27/18 09:01 Dose: 0 mls/hr Isosorbide Mononitrate (Imdur) 30 mg PO DAILY [facility] Last Admin: 11/27/18 10:18 Dose: 30 mg Losartan Potassium (Losartan Potassium) 100 mg PO DAILY [facility] Last Admin: 11/27/18 09:49 Dose: 100 mg Meclizine HCl (Antivert) 12.5 mg PO BID [facility] Last Admin: 11/27/18 09:48 Dose: 12.5 mg Gabapentin [ (Gabapentin] 800 Mg) 1 each PO TID [facility] Last Admin: 11/27/18 09:50 Dose: 1 each Omeprazole 40 Mg 1 each PO DAILY [facility] Last Admin: 11/27/18 10:18 Dose: 1 each Simvastatin [Zocor] (80 Mg) 1 each PO QHS [facility] Last Admin: 11/26/18 21:49 Dose: 1 each Sucralfate [Carafate (] 1 Gm) 1 each PO QHS [facility] Last Admin: 11/26/18 21:49 Dose: 1 each AMI Plan - Labs Result Diagrams: 11/27/18 06:33 11/27/18 06:33
--- NOTE | 2018-11-27 12:48 | Rehab Evaluation ---
Patient Information - Patient Information Diagnosis: Acute L4 compression fx, s/p fall Ordered Treatment: OT Evaluate and Treat Status: Initial Evaluation Surgery: No History: Detail (Pt presented to ED 11/25/18 after a fall at home, in which she describes backing up to her recliner to sit and missing the chair. She states she landed hard and knew "something had happened". 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.) Past Medical/Surgical Hx: PAST MEDICAL/SURGICAL HISTORY Past Surgical History cardiac stent femoral stents chest (15 yrs old from tb) PMH - Respiratory Hx Respiratory Disorders Yes Hx Bronchitis Yes Hx Chronic Obstructive Yes: no official dx Pulmonary Disease (COPD) Hx Dyspnea Yes Hx Tuberculosis Yes PMH - Cardiovascular Hx Cardiovascular Disorders Yes Hx Abnormal EKG Yes Hx Cardiac Catheterization Yes Hx Heart Attack Yes Hx Hypertension Yes PMH - Neuro Hx Neurological Disorders No Hx Dizziness Yes: occasional Hx Neuropathy Yes PMH - GI Hx Gastrointestinal Disorders No Hx Gastroesophageal Reflux Yes PMH - Hx Genitourinary Disorders No Patient No PMH - Endocrine Hx Endocrine Disorders No Hx Diabetes Yes PMH - Musculoskeletal Hx Musculoskeletal Disorders No Hx Arthritis Yes Hx Back Injury Yes: fx hx PMH - Psych Hx Psychiatric Problems No PMH - Hematology/Oncology Hx Hematology/Oncology No Disorders Premorbid Status: Detail (Pt reports that she was ambulating independently w/ four wheeled walker within her home, and that she was independent with all self- care activities except for showering which her daughter assisted with.) Social History: Detail (Pt lives alone in a single story mobile home next door to her daughter Samia and son-in-law. There are 6 steps to enter with a hand rail on both sides, but the steps are wide so only one handrail can be used. She reports her son-in-law "half carries her up the steps" but he is currently receiving therapy for his shoulders and cannot assist at this time. She has a tub/shower combo with a tub TF bench and a hand-held shower. She has a suction GB but feels unsafe using it. She receives Meals on Wheels and her son-in-law sometimes cooks for her; her daughter does laundry and housecleaning, and assists with showering. Pt reports previous falls in which she didn't injure herself, but she has not been able to get up by herself when she has fallen.) Precautions: [place], Fall - Time With Patient Total Time Spent With Patient (Min): 50 (1 eval low, 1 ADL) Treatment Procedures: Detail (OT eval: low complexity) Subjective Information - Subjective Information Per Patient (Pt agreeable to OT eval and Tx. Reports she is very cold this morning and limited by low back pain. OK to see per RN Sally.) Objective Data - Pain Pain Present: Yes Pain Scale Used: Numeric (1 - 10) (4/10 low back, pain at rest, increased pain with mvmt.) - Mental Status Patient Orientation: Oriented x3 - Visual Perception Appears within normal limits for therapeutic activities (Pt reports macular degeneration but ability to make out objects and faces.) - ROM Within normal limits - Strength/Tone Within normal limits - Coordination Appears within normal limits for therapeutic activities - Bed Mobility Needs Assist (MIN-MOD assist supine > EOB, assist for bilat legs d/t back pain.) - Transfers Needs Assist (MIN-MOD assist overall for SPT EOB >< BSC and EOB > BS chair with 4ww. MIN sit-stand and to correct posterior lean, verbal and tactile cues for safe TF technique - feet and hand placement, MOD for controlled descent to surfaces as Pt impulsively plops.) - Balance Balance Sitting: Good Balance Standing: Good (good static standing with bilat support on 4ww), Fair - Sensation Intact - Gait Detail (SPT only this session d/t pain, impulsivitiy/anxiety, and need for chair follow for safety.) - ADL's/IADL's Detail (UB dress with setup assist to don/doff pullover shirt. LB dress with MAX assist to don/doff underwear, pants, socks, shoes d/t back pain with bending. CGA for standing and assist to pull up pants with Pt heavy bilat support on 4ww. Assume same assist levels for UB/LB showering. MAX assist for toileting - assist to wipe in standing at BSC and to pull up pants. Tx: TF training with safe tech. and tech. to decrease low back pain, role/benefits of IP OT and ИРИНА.) Therapy Assessment - Therapy Assessment Detail (Prior to admit, Pt was indep. grossly with ADLs and using 4ww at home with semi-frequent falls. Currently Pt only able to SPT at MOD assist level d/ t back pain, anxiety, and unsafe behaviors and requiring MAX assist for LB dress. Recommend ИРИНА at DC to increase independence and safety with all ADLs and functional TFs.) Problem List - Problem List Physical Therapy Problem List: Detail (1. Difficulty walking 2. Poor dynamic standing balance. 3. Unsafe transfers.) Occupational Therapy Problem List: Detail (1. Decreased indep with LB dressing. 2. Decreased safety and indep. with functional TFs. 3. Decreased activity tolerance needed for safe and indep. self-cares and fxl TFs.) Goals - Goals Physical Therapy Goals: 1. Pt will safely ambulate over household distances with four wheeled walker with supervision. 2. Pt will safely perform transfers to/from chair/bed/commode. 3. Pt will ascend/descend three steps with CGA w/ appropriate assistive device. Occupational Therapy Goals: 1. Pt will be MOD I for LB dressing using AE ( social sciences lecturer, dressing stick, sock aide) as needed. 2. Pt will be MOD I for toilet TFs with walker (SPT to [facility] progressing to standard toilet). 3. Pt will demo improved fxl endurance to allow safe and indep. self-cares. Prognosis - Prognosis Good Plan - Plan Physical Therapy Plan: Pt will be seen 1-2 times daily M-F for transfer training and gait training. Occupational Therapy Plan: OT 2-4 days/wk to address goals to increase safety and indep. with ADLs and fxl TFs. Thank you for this referral.
--- NOTE | 2018-11-27 16:08 | Physical Therapy Tx Note ---
Physical Therapy Tx Note - Treatment Note Tolerated: Fair Total Time Spent With Patient: 35 Physical Therapy Tx Note: Detail (Pt asleep in bed upon arrival, awakened easily , wanted to stay in bed and sleep but cooperated for LE exercises: heel slides, short-arc quads, hip abduction, ankle pumps x 10 each B. Supine to sit at edge of bed w/min assist; assisted to don shoes. Pivot transfer w/four wheeled walker to bedside commode w/CGA; max assist for clothing management. Controlled sit. Fearful of resuming standing after toileting; called for nrsg assistance. Sit to stand at four wheeled walker w/CGA; max assist for clothing management ; VC's and CGA of 2 to step and pivot w/walker to recliner. Began to sit too soon and did not reach back for chair, required min assist to control sit into recliner. Independently positioned herself in chair. Left up in chair w/call light in reach; bedside table in front; nrsg providing care.) Physical Therapy Problem List: Detail (1. Difficulty walking. 2. Poor dynamic standing balance. 3. Unsafe transfers.) Physical Therapy Goals: 1. Pt will safely ambulate over household distances with four wheeled walker with supervision. 2. Pt will safely perform transfers to/from chair/bed/commode. 3. Pt will ascend/descend three steps with CGA w/ appropriate assistive device. Physical Therapy Plan: Pt will be seen 1-2 times daily M-F for transfer training and gait training.
[2018-11-27] MEDS: SIMVASTATIN 80 MG PO SCH (22:59)
[2018-11-27] MEDS: SUCRALFATE 1 GM PO SCH (23:00)
[2018-11-28] MEDS: IPRATROPIUM/ALBUTEROL (0.5MG/3MG) NEB INH SCH ×5 (05:56→21:37)
[2018-11-28 06:45] LABS: ALB/GLOB RATIO 1.3 (1.1-1.8); ALBUMIN 3.5 g/dL (4.0-5.0); ALKALINE PHOSPHATASE 61 U/L (35-104); ALT/SGPT 9 U/L (<33); AST/SGOT 12 U/L (10.0-35.0); BLOOD UREA NITROGEN 18 mg/dL (8-23); CREATININE 0.6 mg/dL (0.5-0.9); EST GLOMERULAR FILTRATION RATE > 60 mL/min; GLUCOSE,RANDOM 91 mg/dL (74-109); TOTAL PROTEIN 6.1 g/dL (6.6-8.7)
[2018-11-28] MEDS: HYDROCODONE/APAP 5/325MG TABLET PO PRN ×4 (07:32→22:00)
[2018-11-28] MEDS: BUDESONIDE 0.5 MG/2 ML INH SCH ×2 (10:19→21:37)
[2018-11-28] MEDS: CARVEDILOL 3.125 MG TABLET PO SCH ×2 (10:54→22:01)
[2018-11-28] MEDS: ISOSORBIDE MONONITRATE 30 MG TAB.ER.24H PO SCH (10:54)
[2018-11-28] MEDS: MECLIZINE 25 MG TABLET PO SCH ×2 (10:54→22:01)
[2018-11-28] MEDS: ASPIRIN 81 MG TABEC PO SCH (10:54)
--- NOTE | 2018-11-28 10:54 | Physician Progress Note ---
Subjective - Date Date of Physician Progress Note: 11/28/18 - Subjective Subjective Comment: 11/28/18: Pt. reports improved lower back pain, still very painful with ambulation. She does have difficulty with leaning/rolling to her right/left when in bed and difficulty with initiating ambulation. Planning to change to swing bed tomorrow and resume PT/OT m-f. Objective - Vital Signs Vital Signs: Vital Signs - Last 24 Hrs Temp Pulse Pulse Resp BP Pulse Ox 11/28/18 10:21 106 H 18 96 11/28/18 10:00 98.0 F 74 20 153/109 89 L 11/28/18 06:00 97.6 F 93 H 22 124/76 90 L 11/28/18 05:57 82 18 91 L 11/28/18 02:00 98.4 F 91 H 22 128/58 90 L 11/27/18 22:00 97.7 F 92 H 20 101/49 90 L 11/27/18 21:36 84 18 91 L 11/27/18 18:45 99.5 F 102 H 18 115/61 91 L 11/27/18 18:06 103 H 18 95 11/27/18 13:00 99.2 F 99 H 20 109/60 91 L - General General Appearance: Alert, Oriented x3, Cooperative, No acute distress Limitations: No limitations - Head Head exam: Atraumatic, Normocephalic - Eye Eye exam: Normal appearance - Neck Neck exam: Normal inspection, Full ROM. negative: Tenderness - Respiratory Respiratory exam: Normal lung sounds bilaterally. negative: Respiratory distress - Cardiovascular Cardiovascular Exam: Regular rate, Normal rhythm, Normal heart sounds - GI/Abdominal GI/Abdominal exam: Soft, Normal bowel sounds. negative: Tenderness - Extremities Extremities exam: Normal inspection, Full ROM (There is normal hip ROM with no pain.), Normal capillary refill. negative: Joint swelling, Tenderness - Back Back exam: Reports: Normal inspection, Vertebral tenderness (in the lower lumbar area.) - Neurological Neurological exam: Alert, Normal gait, Oriented X3. negative: Abnormal gait, Altered, Motor sensory deficit Assessment and Plan - Assessment and Plan (1) Lumbar compression fracture Current Visit: Yes Status: Acute Qualifiers: Encounter type: initial encounter Lumbar vertebra fracture level: L4 Fracture type: closed Qualified Code(s): S32.040A - Wedge compression fracture of fourth lumbar vertebra, initial encounter for closed fracture Base Code: S32.000A - WEDGE COMPRESSION FRACTURE OF UNSP LUMBAR VERTEBRA, INIT Comment: 11/28/18: -New mild L4 compression fracture -Continue norco 5/325mg q4h for pain -PT/OT eval- unsteadiness noted with attempted ambulation, recommending continuted PT/OT, will switch to swing bed program tomorrow (2) Hyponatremia Current Visit: No Status: Acute Base Code: E87.1 - HYPO-OSMOLALITY AND HYPONATREMIA Comment: 11/28/18: -Repeat sodium today was 131, pt. continues to drink sodium broth -Will consult real estate loan officer regarding increasing dietary sources of sodium (3) DVT prophylaxis Current Visit: No Status: Acute Base Code: [id number] - Comment: 11/28/18: -Continue home plavix 75mg daily and ASA 81mg daily (4) Weakness Current Visit: Yes Status: Acute Base Code: R53.1 - WEAKNESS Comment: 11/28: -Likely secondary to deconditioning and hyponatremia -PT/OT eval and case management consult completed -Will continue PT/OT during when swing bed (5) DNR (do not resuscitate) Current Visit: No Status: Acute Base Code: Z66 - DO NOT RESUSCITATE Comment: 11/28/18: -Pt. is a DNR -signed form in chart Results - Labs Result Diagrams: 11/27/18 06:33 11/28/18 06:20 Labs Last 24 Hours: Laboratory Results - last 24 hr 11/28/18 06:20 Sodium 131 L Potassium 4.5 Chloride 96 L Carbon Dioxide 25.0 Anion Gap 10.0 BUN 18 Creatinine 0.6 Estimated GFR > 60 Random Glucose 91 Calcium 9.1 Total Bilirubin 0.40 AST 12 ALT 9 Alkaline Phosphatase 61 Total Protein 6.1 L Albumin 3.5 L Globulin 2.6 Albumin/Globulin Ratio 1.3 DVT/PE Assessment - Risk for VTE Risk for VTE: No Risk Level: Low Risk Assessment Date: 11/26/18 Risk Assessment Time: 12:37 VTE Orders Placed or Will Be Placed: No VTE Reason for No Prophylaxis: Contraindicated (Currently on plavix 75mg daily) - Active Medicaitons Current Medications: Current Medications Acetaminophen (Tylenol 325mg) 650 mg PO Q6H PRN PRN Reason: PAIN - MILD(1-4)/FEVER Hydrocodone Bitart/Acetaminophen ([place] 5mg/325mg) 2 each PO Q6H PRN PRN Reason: PAIN - MILD TO MODERATE (1-7) Last Admin: 11/28/18 07:32 Dose: 2 each Albuterol/Ipratropium (Duoneb) 3 ml INH RESP.Q4H.[facility] Last Admin: 11/28/18 10:19 Dose: 3 ml Aspirin (Ecotrin (Ec)) 81 mg PO DAILY [facility] Last Admin: 11/27/18 09:58 Dose: 81 mg Budesonide (Pulmicort) 0.5 mg INH Q12H [facility] Last Admin: 11/28/18 10:19 Dose: 0.5 mg Carvedilol (Coreg) 3.125 mg PO BID [facility] Last Admin: 11/27/18 22:59 Dose: 3.125 mg Clopidogrel Bisulfate (Plavix) 75 mg PO DAILY [facility] Last Admin: 11/27/18 09:49 Dose: 75 mg Hydrochlorothiazide (Hctz 25mg) 25 mg PO DAILY [facility] Last Admin: 11/27/18 10:18 Dose: 25 mg Sodium Chloride () 1,000 mls @ 125 mls/hr IV .Q8H PRN PRN Reason: LARGE VOLUME IV Last Infusion: 11/27/18 09:01 Dose: 0 mls/hr Isosorbide Mononitrate (Imdur) 30 mg PO DAILY [facility] Last Admin: 11/27/18 10:18 Dose: 30 mg Losartan Potassium (Losartan Potassium) 100 mg PO DAILY [facility] Last Admin: 11/27/18 09:49 Dose: 100 mg Meclizine HCl (Antivert) 12.5 mg PO BID [facility] Last Admin: 11/27/18 22:59 Dose: 12.5 mg Gabapentin [ (Gabapentin] 800 Mg) 1 each PO TID [facility] Last Admin: 11/27/18 22:59 Dose: 1 each Omeprazole 40 Mg 1 each PO DAILY [facility] Last Admin: 11/27/18 10:18 Dose: 1 each Simvastatin [Zocor] (80 Mg) 1 each PO QHS [facility] Last Admin: 11/27/18 22:59 Dose: 1 each Sucralfate [Carafate (] 1 Gm) 1 each PO QHS [facility] Last Admin: 11/27/18 23:00 Dose: 1 each AMI Plan - Labs Result Diagrams: 11/27/18 06:33 11/28/18 06:20
[2018-11-28] MEDS: HYDROCHLOROTHIAZIDE 25 MG TABLET PO SCH (10:55)
[2018-11-28] MEDS: CLOPIDOGREL 75MG TABLET PO SCH (10:55)
[2018-11-28] MEDS: LOSARTAN POTASSIUM 100 MG TABLET PO SCH (10:56)
[2018-11-28] MEDS: GABAPENTIN 800 MG PO SCH ×3 (10:57→22:02)
[2018-11-28] MEDS: CYCLOBENZAPRINE 10MG TABLET PO PRN (20:15)
[2018-11-28] MEDS: SIMVASTATIN 80 MG PO SCH (22:02)
[2018-11-28] MEDS: SUCRALFATE 1 GM PO SCH (22:02)
[2018-11-29] MEDS: HYDROCODONE/APAP 5/325MG TABLET PO PRN (02:57)
[2018-11-29] MEDS: CYCLOBENZAPRINE 10MG TABLET PO PRN ×2 (03:01→09:21)
[2018-11-29] MEDS ORDERED: HYDROCODONE/APAP 5/325MG TABLET PO PRN (06:04)
[2018-11-29 06:45] LABS: ALB/GLOB RATIO 1.1 (1.1-1.8); ALBUMIN 3.1 g/dL (4.0-5.0); ALKALINE PHOSPHATASE 58 U/L (35-104); ALT/SGPT 9 U/L (<33); AST/SGOT 18 U/L (10.0-35.0); BLOOD UREA NITROGEN 21 mg/dL (8-23); CREATININE 0.7 mg/dL (0.5-0.9); EST GLOMERULAR FILTRATION RATE > 60 mL/min; GLUCOSE,RANDOM 89 mg/dL (74-109)
[2018-11-29] MEDS: IPRATROPIUM/ALBUTEROL (0.5MG/3MG) NEB INH SCH ×2 (08:09→09:13)
[2018-11-29] MEDS: BUDESONIDE 0.5 MG/2 ML INH SCH (09:13)
[2018-11-29] MEDS: HYDROCHLOROTHIAZIDE 25 MG TABLET PO SCH (09:20)
[2018-11-29] MEDS: MECLIZINE 25 MG TABLET PO SCH (09:20)
[2018-11-29] MEDS: CARVEDILOL 3.125 MG TABLET PO SCH (09:21)
[2018-11-29] MEDS: ASPIRIN 81 MG TABEC PO SCH (09:21)
[2018-11-29] MEDS: LOSARTAN POTASSIUM 100 MG TABLET PO SCH (09:21)
[2018-11-29] MEDS: CLOPIDOGREL 75MG TABLET PO SCH (09:21)
[2018-11-29] MEDS: GABAPENTIN 800 MG PO SCH (09:25)
[2018-11-29] MEDS: ISOSORBIDE MONONITRATE 30 MG TAB.ER.24H PO SCH (09:28)
--- NOTE | 2018-11-29 10:49 | Discharge Summary ---
Providers Discharge Summary Date: 11/29/18 Date of admission: 11/26/18 17:00 Expected Date of Discharge: 11/29/18 Attending physician: CIHQUI LANDEROS Primary care physician: Selma Phillips N.P. Consults: Consult Orders 11/26/18 06:07 Consult - Case Management Now Comment: Reason For Exam: Placement vs. home health service Physical Exam - Vital Signs Vital Signs: Vital Signs - Last 24 Hrs Temp Pulse Pulse Pulse Resp BP Pulse Ox 11/29/18 09:48 98.4 F 112 H 20 133/61 91 L 11/29/18 09:13 108 H 18 94 L 11/29/18 09:00 80 18 11/29/18 05:48 97.8 F 79 20 125/54 90 L 11/28/18 21:41 85 18 90 L 11/28/18 20:30 98.9 F 90 22 118/48 94 L 11/28/18 18:31 89 18 94 L 11/28/18 18:00 99.5 F 94 H 20 118/50 91 L 11/28/18 14:11 103 H 18 93 L 11/28/18 14:00 98.7 F 85 20 105/45 95 - General General Appearance: Alert, Oriented x3, Cooperative, No acute distress Limitations: No limitations - Head Head exam: Atraumatic, Normocephalic - Eye Eye exam: Normal appearance - Neck Neck exam: Normal inspection, Full ROM. negative: Tenderness - Respiratory Respiratory exam: Normal lung sounds bilaterally. negative: Respiratory distress - Cardiovascular Cardiovascular Exam: Regular rate, Normal rhythm, Normal heart sounds - GI/Abdominal GI/Abdominal exam: Soft, Normal bowel sounds. negative: Tenderness - Extremities Extremities exam: Normal inspection, Full ROM (There is normal hip ROM with no pain.), Normal capillary refill. negative: Joint swelling, Tenderness - Back Back exam: Reports: Normal inspection, Vertebral tenderness (in the lower lumbar area.) - Neurological Neurological exam: Alert, Normal gait, Oriented X3. negative: Abnormal gait, Altered, Motor sensory deficit Hospitalization - Hospitalization Admission Diagnosis: 1. Acute L 4 Compression fx. - Problem List/Discharge Diagnosis (1) Lumbar compression fracture Current Visit: Yes Status: Acute Discharge Diagnosis: Encounter type: initial encounter Lumbar vertebra fracture level: L4 Fracture type: closed Qualified Code(s): S32.040A - Wedge compression fracture of fourth lumbar vertebra, initial encounter for closed fracture Base Code: S32.000A - WEDGE COMPRESSION FRACTURE OF UNSP LUMBAR VERTEBRA, INIT Comment: 11/29/18: -New mild L4 compression fracture -Continue norco 5/325mg q4h for pain -PT/OT eval- unsteadiness noted with attempted ambulation, recommending continuted PT/OT -d/c to SB today (2) Hyponatremia Current Visit: No Status: Acute Base Code: E87.1 - HYPO-OSMOLALITY AND HYPONATREMIA Comment: 11/29/18: -Repeat sodium today was 130, pt. continues to drink sodium broth -Will consult veterinary inspector regarding increasing dietary sources of sodium (3) DVT prophylaxis Current Visit: No Status: Acute Base Code: [id number] - Comment: 11/29/18: -Continue home plavix 75mg daily and ASA 81mg daily (4) Weakness Current Visit: Yes Status: Acute Base Code: R53.1 - WEAKNESS Comment: 11/29: -Likely secondary to deconditioning and hyponatremia -PT/OT eval and case management consult completed -Will continue PT/OT during when swing bed (5) DNR (do not resuscitate) Current Visit: No Status: Acute Base Code: Z66 - DO NOT RESUSCITATE Comment: 11/29/18: -Pt. is a DNR -signed form in chart - Hospitalization Course Disposition: Moved to Swing Bed Hospital Course: Pt. is a 83 year-old female who presented to the ED the evening of 11/25 for c /o buttock pain. She was trying to sit down while using her walker and her legs gave out and she landed on her buttocks. She now has buttock and low back pain. She denies hitting her head or any LOC or neck pain. She was accompanied by her family. Her history includes hyponatremia (eats bullion cubes daily at home), ex-smoker, hx TB at age 15, neuropathy, macular degeneration, impaired hearing, HTN, [place], GERD, arthritis, and compression fractures of the spine. In the ED, xray revealed new mild L4 compression fracture (old L1 fx), CT was consistent, demonstrated multilevel disc disease. Pt. lives independently and uses a walker at home. Her family did not feel pt would be able to go up stairs at her home due to pain. Pt. was admitted observation- planned PT/OT eval and pain control. 11/26/18: Pt. is resting in bed, she reports improvement in her pain, however, she has not ambulated yet this morning. PT/OT eval ordered, consult to case management ordered to assess for possible need for home nursing vs. placement. 11/28/18: Pt. reports improved lower back pain, still very painful with ambulation. She does have difficulty with leaning/rolling to her right/left when in bed and difficulty with initiating ambulation. Planning to change to swing bed tomorrow and resume PT/OT m-f. PCP: MATTHEW Mcwilliams Procedures: Imaging and X-Rays 11/25/18 13:31 LUMBAR SPINE / AP LAT [RAD] Stat PELVIS, COMPLETE 3 VIEWS [RAD] Stat 11/25/18 15:52 LUMBAR SPINE WO CONTRAST [CT] Stat Abnormal Labs: Abnormal Lab Results 11/26/18 11/26/18 11/26/18 Range/Units 06:45 06:45 16:20 Hgb (11.6-16.0) gm/dl MCH 26.7 L (27-33) pg MCHC 31.8 L (32-36) g/dl RDW 14.9 H (11.5-14.5) % Sodium 129 L 125 L (136-145) mmol/L Potassium 5.2 H (3.4-4.5) mmol/L Chloride 89 L 88 L (98-107) mmol/L BUN 26 H (8-23) mg/dL Random Glucose 114 H (74-109) mg/dL Calcium 8.7 L (8.8-10.2) mg/dL Total Protein 6.5 L (6.6-8.7) g/dL Albumin 3.7 L (4.0-5.0) g/dL 11/27/18 11/27/18 11/28/18 Range/Units 06:33 06:33 06:20 Hgb 11.1 L (11.6-16.0) gm/dl MCH 26.4 L (27-33) pg MCHC 31.4 L (32-36) g/dl RDW 15.2 H (11.5-14.5) % Sodium 127 L 131 L (136-145) mmol/L Potassium 4.6 H (3.4-4.5) mmol/L Chloride 93 L 96 L (98-107) mmol/L BUN (8-23) mg/dL Random Glucose (74-109) mg/dL Calcium (8.8-10.2) mg/dL Total Protein 6.3 L 6.1 L (6.6-8.7) g/dL Albumin 3.6 L 3.5 L (4.0-5.0) g/dL 11/29/18 Range/Units 06:00 Hgb (11.6-16.0) gm/dl MCH (27-33) pg MCHC (32-36) g/dl RDW (11.5-14.5) % Sodium 130 L (136-145) mmol/L Potassium 4.6 H (3.4-4.5) mmol/L Chloride 94 L (98-107) mmol/L BUN (8-23) mg/dL Random Glucose (74-109) mg/dL Calcium (8.8-10.2) mg/dL Total Protein 6.0 L (6.6-8.7) g/dL Albumin 3.1 L (4.0-5.0) g/dL Condition at Discharge: (2) Stable Discharge Diagnosis: Weakness/deconditioning secondary to L4 fracture VTE Discharge VTE Reason For No Overlap Therapy: Not Indicated (Pt. is on plavix) Discharge Medications - Discharge Medications Home Medications: Ambulatory Orders Aspirin [Adult Aspirin] 81 mg PO DAILY 08/03/18 [Last Taken Unknown] Carvedilol [Coreg] 3.125 mg PO BID 08/03/18 [Last Taken Unknown] Clopidogrel Bisulfate [Plavix] 75 mg PO DAILY 08/03/18 [Last Taken Unknown] Hydrochlorothiazide [Hctz] 25 mg PO DAILY 08/03/18 [Last Taken Unknown] Isosorbide Mononitrate [Imdur] 30 mg PO DAILY 08/03/18 [Last Taken Unknown] Losartan Potassium [Cozaar] 100 mg PO DAILY 08/03/18 [Last Taken Unknown] Meclizine HCl [Antivert] 12.5 mg PO BID #20 tab 08/03/18 [Last Taken Unknown] Omeprazole 40 mg PO DAILY 08/03/18 [Last Taken Unknown] Sucralfate [Carafate] 1 gm PO QHS 08/03/18 [Last Taken Unknown] Acetaminophen [Tylenol 500Mg Tab] 1,000 mg PO Q6H PRN tablet 10/05/18 [Last Taken Unknown] Budesonide [Pulmicort] 0.5 mg INH RESP.BID #2 box 10/05/18 [Last Taken Unknown] Ipratropium/Albuterol [Duoneb] 3 ml INH RESP.Q4H.WA #2 box 10/05/18 [Last Taken Unknown] Gabapentin 800 mg PO TID #180 cap 11/04/18 [Last Taken Unknown] Cyclobenzaprine HCl [Flexeril] 5 mg PO TID PRN tablet 11/29/18 [Last Taken Unknown] Hydrocodone/APAP 5/325Mg [[place] 5Mg/325Mg] 2 each PO Q4H PRN tab 11/29/18 [ Last Taken Unknown] Discharge Plan - Discharge Instructions Activity at Discharge: As Per Physical Therapy Diet at Discharge: Regular Diet (high sodium) Additional Instructions: Appointment with NISHANT Huerta at [facility] December 02 at 10:40am [facility] for visiting nurse, physical therapy Quality Measures - Quality Measures Quality Measures: Advance Directives, Documentation of Current Medications in Medical Record, Elder Maltreatment Screen and Follow-Up Plan, Screening for High Blood Pressure and F/U Documented - Current Medications Quality Measure: Measure #130: Documentation of Current Medications Documentation of Current Medications: <Current Medications Documented/Reviewed> [S2424] - Blood Pressure Screening Quality Measure: Screening for High Blood Pressure and Follow-Up Documented Does Patient Have Any of the Following: Active Dx of HTN Blood Pressure Classification: Pre-Hypertensive BP Reading Systolic Measurement: 158 Diastolic Measurement: 85 Screening for High Blood Pressure: Patient Exclusion, Hx of HTN [G9744] - Advance Directives Quality Measure: Measure #47: Care Plan Advance Directives Established: No Advance Directives Information Provided To Patient: Declined Advance Directives on File: No Living Will: No Power of Production Mechanic: Yes Power of Production Mechanic Name: SHARMIN MONDRAGON Advance Care Planning: <Care Plan/Decision Maker Documented; Discussed & Documented> [[id number]] - Elder Abuse Suspicion Index Screening: Elder Abuse Suspicion Index Screening Rely on people for bathing, dressing, shopping, banking, etc: No Prevented from getting food, clothes, medication, etc: No Made to feel shamed or threatened by someone: No Forced to sign papers or use money against will: No Feel afraid, touched in ways not wanted or hurt physically: No Poor eye contact, withdrawn, malnourished, cuts or bruises: No Screening Result: Negative result EASI Reference Information: Micah STEIN, Felicia Carmen, Arik Rolon, Donya Spivey.Development and validation of a tool to assist physicians identification of elder abuse: The Elder Abuse Suspicion Index (EASI ). Journal of Elder Abuse and Neglect, 2008; 20 (3): 276-300. - Elder Maltreatment Screen Quality Measures: Elder Maltreatment Screen and Follow-Up Plan Elder Maltreatment Screen: <Negative, No Follow-Up Plan Required> [G8734]
== END 2018-11-29 12:00 | disposition swing bed (61) | DRG 552 ==
LOC: ER 13:04 → MEDSURG 18:35 → OBSVTOIN 11-26 17:00
PROVIDERS: ADMIT Internal Medicine; ATTEND Internal Medicine
DX: S32.040A Wedge compression fracture of fourth lumbar vertebra, initial encounter for closed fracture (principal); E87.1 Hypo-osmolality and hyponatremia; R53.1 Weakness; W18.39XA Other fall on same level, initial encounter; Z91.81 History of falling; I10 Essential (primary) hypertension; I25.2 Old myocardial infarction; E11.9 Type 2 diabetes mellitus without complications; K21.9 Gastro-esophageal reflux disease without esophagitis; M19.90 Unspecified osteoarthritis, unspecified site; G62.9 Polyneuropathy, unspecified; Z87.891 Personal history of nicotine dependence; Z66 Do not resuscitate; Z95.5 Presence of coronary angioplasty implant and graft; Z86.11 Personal history of tuberculosis
CPT/HCPCS: 85025; 80048; 80053; 72100; 72190; 72131; 94640 ×2; G0378 ×6; J3490; 83735; 97530; 97535; 99223; 99233; 99239; 99285; J7030

== ENCOUNTER 2018-11-29 11:22 | Inpatient (IN) | payer MEDICARE, OTHER ==
--- NOTE | 2018-11-29 12:32 | History & Physical ---
History of Present Illness - Date Date of Service for History & Physical: 11/29/18 - History of Present Illness Admitting Diagnosis: Deconditioning History of Present Illness: Pt. is a 83 year-old female who presented to the ED the evening of 11/25 for c/o buttock pain. She was trying to sit down while using her walker and her legs gave out and she landed on her buttocks. She now has buttock and low back pain. She denies hitting her head or any LOC or neck pain. She was accompanied by her family. Her history includes hyponatremia (eats bullion cubes daily at home ), ex-smoker, hx TB at age 15, neuropathy, macular degeneration, impaired hearing, HTN, [place], GERD, arthritis, and compression fractures of the spine. In the ED, xray revealed new mild L4 compression fracture (old L1 fx), CT was consistent, demonstrated multilevel disc disease. Pt. lives independently and uses a walker at home. Her family did not feel pt would be able to go up stairs at her home due to pain. Pt. was admitted observation- planned PT/OT eval and pain control. 11/26/18: Pt. is resting in bed, she reports improvement in her pain, however, she has not ambulated yet this morning. PT/OT eval ordered, consult to case management ordered to assess for possible need for home nursing vs. placement. 11/28/18: Pt. reports improved lower back pain, still very painful with ambulation. She does have difficulty with leaning/rolling to her right/left when in bed and difficulty with initiating ambulation. Planning to change to swing bed tomorrow and resume PT/OT m-f. 11/29/18: 1200: Pt. changed over to swing bed today, will resume PT/OT tomorrow. She is sitting up in her chair, she states pain is well-controlled at rest, but "torture" when she needs to ambulate. Labs and VS stable. Will consult dietary tomorrow (Friday) regarding increasing dietary sodium. PCP: MATTHEW Mcwilliams General - Cognitive Patterns Speech: Normal Thought Process: Intact Thought Content: Normal Orientation: Oriented x3 - Communication Preferred Language?: Dutch Storage Management Architect Required: No Comprehension Ability: No Impairment Able to Read: Yes Able to Write: Yes Select best description of speech pattern: Clear Speech Ability to express ideas and wants: Understood Understanding verbal content: Understands - Mood and Behavior Patterns Appearance: Well Groomed Mood: Normal Attitude: Cooperative Motor Activity: Calm Affect: Appropriate Hallucinations: Denies - Psychosocial Well-Being Usual Living Arrangement: Alone Relationship Status: / Verbalizes Interest in Activities During Stay: Yes - Physical Functioning Activity Level: Up with assist x2 Turning: With total assist ROM Ability: Limited/Compromised Assistive Devices: Walker Ambulation Ability: Needs Assist Bed Mobility: Needs Assist Transfer Ability: Needs Assist Bathing Ability: Needs Assist Personal Hygiene: Needs Assist Dressing Ability: Needs Assist Eating (Feeding) Ability: Independent Toileting Ability: Needs Assist Administer Own Medication: Independent - Continence Bowel Pattern: Normal for Patient - Nutrition Screening Poor oral intake > 1 week: No Unplanned weight loss in specified time frame: No Nutrition Support via tube feedings or parenteral nutrition: No Pressure Ulcer: No Significantly underweight define as BMI <18.5 kg/m2: No Albumin <2.5mg/dL: No Persistent nausea/vomiting/diarrhea >3 days: No Difficulty chewing/swallowing/mouth sores: No Admitting Diagnosis: No Nutrition Risk Score: Low Risk Review of Systems Reviewed: No additional complaints except as noted below Constitutional: Reports: As per HPI. Denies: Chills, Fever, Malaise, Night sweats, Weakness, Weight change Eyes: Reports: As per HPI. Denies: Eye discharge, Eye pain, Photophobia, Vision change ENT: Reports: As per HPI. Denies: Congestion, Dental pain, Ear pain, Epistaxis , Hearing loss, Throat pain Respiratory: Reports: As per HPI. Denies: Cough, Dyspnea, Hemoptysis, Stridor, Wheezes Cardiovascular: Reports: As per HPI. Denies: Arrhythmia, Chest pain, Dyspnea on exertion, Edema, Murmurs, Orthopnea, Palpitations, Paroxysmal nocturnal dyspnea, Rheumatic Fever, Syncope Endocrine: Reports: As per HPI. Denies: Fatigue, Heat or cold intolerance, Polydipsia, Polyuria Gastrointestinal: Reports: As per HPI. Denies: Abdominal pain, Constipation, Diarrhea, Hematemesis, Hematochezia, Melena, Nausea, Vomiting Genitourinary: Reports: As per HPI. Denies: Abnormal menses, Discharge, Dyspareunia, Dysuria, Frequency, Hematuria, Incontinence, Retention, Urgency Musculoskeletal: Reports: Back pain. Denies: Arthralgia, Gout, Joint swelling, Myalgia, Neck pain Skin: Reports: As per HPI. Denies: Bruising, Change in color, Change in hair/ nails, Lesions, Pruritus, Rash Neurological: Reports: As per HPI. Denies: Abnormal gait, Confusion, Headache, Numbness, Paresthesias, Seizure, Tingling, Tremors, Vertigo, Weakness Psychiatric: Reports: As per HPI. Denies: Anxiety, Auditory hallucinations, Depression, Homicidal thoughts, Suicidal thoughts, Visual hallucinations Hematological/Lymphatic: Reports: As per HPI. Denies: Anemia, Blood Clots, Easy bleeding, Easy bruising, Swollen glands Past Medical History - SOCIAL HISTORY Smoking Status: Former smoker - SURGICAL HISTORY Past Surgical History: cardiac stent. femoral stents. chest (15 yrs old from tb) - RESPIRATORY Hx Respiratory Disorders: Yes Hx Tuberculosis: Yes - CARDIOVASCULAR Hx Cardio Disorders: Yes Hx Abnormal EKG: Yes Hx Heart Attack: Yes Hx Hypertension: Yes - NEURO Hx Neuro Disorders: No Hx Dizziness: Yes (occasional) Hx Neuropathy: Yes - GI Hx GI Disorders: No Hx Reflux: Yes - Hx Genitourinary Disorders: No - ENDOCRINE Hx Endocrine Disorders: No Hx Diabetes: Yes - MUSCULOSKELETAL Hx Musculoskeletal Disorders: No Hx Arthritis: Yes Hx Back Injury: Yes (fx hx) - PSYCH Hx Psych Problems: No - HEMATOLOGY/ONCOLOGY Hx Hematology/Oncology Disorders: No Hx Blood Transfusions: Yes (@age 15?) Family Medical History Hx Alcohol Use: Father Hx Dementia: Mother Hx Diabetes: Brother/Sister Hx HTN: Brother/Sister Hx Stroke: Father H&P Meds/Allergies - Allergies Allergies: Allergies Allergy/AdvReac Type Severity Reaction Status Date / Time codeine AdvReac ALTERED Unverified 11/04/18 17:22 MENTAL STATUS - Home Medications Previous Rx's Medication Instructions Recorded Meclizine HCl [Antivert] 12.5 mg PO BID #20 tab 08/03/18 Acetaminophen [Tylenol 500Mg Tab] 1,000 mg PO Q6H PRN tablet 10/05/18 Budesonide [Pulmicort] 0.5 mg INH RESP.BID #2 box 10/05/18 Ipratropium/Albuterol [Duoneb] 3 ml INH RESP.Q4H.WA #2 box 10/05/18 Cyclobenzaprine HCl [Flexeril] 5 mg PO TID PRN tablet 11/29/18 Hydrocodone/APAP 5/325Mg [[place] 2 each PO Q4H PRN tab 11/29/18 5Mg/325Mg] Physical Exam - General General Appearance: Alert, Oriented x3, Cooperative, No acute distress - Head Head exam: Normal inspection - Eye Eye exam: Normal appearance, PERRL Pupils: Normal accommodation - ENT ENT exam: Normal exam, Mucous membranes moist, Normal external ear exam, Normal orophraynx, TM's normal bilaterally Ear exam: Normal external inspection. negative: External canal tenderness Nasal Exam: Normal inspection. negative: Discharge, Sinus tenderness Mouth exam: Normal external inspection, Tongue normal Teeth exam: Normal inspection. negative: Dental caries Throat exam: Normal inspection. negative: Tonsillar erythema, Tonsillar exudate - Neck Neck exam: Normal inspection, Full ROM. negative: Tenderness - Respiratory Respiratory exam: Normal lung sounds bilaterally. negative: Respiratory distress - Cardiovascular Cardiovascular Exam: Regular rate, Normal rhythm, Normal heart sounds - GI/Abdominal GI/Abdominal exam: Soft, Normal bowel sounds. negative: Tenderness - Rectal Rectal exam: Deferred - exam: Deferred - Extremities Extremities exam: Normal inspection, Full ROM, Normal capillary refill. negative: Tenderness - Back Back exam: Reports: Tenderness - Neurological Neurological exam: Alert, Oriented X3, Reflexes normal - Skin Skin exam: Dry, Intact, Normal color, Warm Plan - Swing Bed Certification Initial Certification Due: 11/29/18 14 Day Re-Cert Due: 12/13/18 44 Day Re-Cert Due: 01/12/19 74 Day Re-Cert Due: 02/11/19 - Detailed Diagnosis and Plan (1) Physical deconditioning Current Visit: Yes Status: Acute Base Code: R53.81 - OTHER MALAISE Comment : 11/29/18: -Likely secondary to deconditioning and hyponatremia -PT/OT eval and case management consult completed -Will continue PT/OT during when swing bed (2) Hyponatremia Current Visit: No Status: Acute Base Code: E87.1 - HYPO-OSMOLALITY AND HYPONATREMIA Comment: 11/29/18: -Repeat sodium today was 130, pt. continues to drink sodium broth -Will consult travel accommodations rater regarding increasing dietary sources of sodium (3) Lumbar compression fracture Current Visit: No Status: Acute Qualifiers: Encounter type: initial encounter Lumbar vertebra fracture level: L4 Fracture type: closed Qualified Code(s): S32.040A - Wedge compression fracture of fourth lumbar vertebra, initial encounter for closed fracture Base Code: S32.000A - WEDGE COMPRESSION FRACTURE OF UNSP LUMBAR VERTEBRA, INIT Comment: 11/29/18: -New mild L4 compression fracture -Continue norco 5/325mg q4h for pain -PT/OT eval- unsteadiness noted with attempted ambulation, recommending continuted PT/OT -d/c to SB today (4) DVT prophylaxis Current Visit: No Status: Acute Base Code: [id number] - Comment: 11/29/18: -Continue home plavix 75mg daily and ASA 81mg daily (5) DNR (do not resuscitate) Current Visit: No Status: Acute Base Code: Z66 - DO NOT RESUSCITATE Comment: 11/29/18: -Pt. is a DNR -signed form in chart
--- NOTE | 2018-11-29 12:37 | Swing Bed Certification/Recert ---
Initial Certification Due: 11/29/18 14 Day Re-Cert Due: 12/13/18 44 Day Re-Cert Due: 01/12/19 74 Day Re-Cert Due: 02/11/19 CERTIFICATION 3 CERTIFICATION OF PATIENT ADMISSION Required at time of admission. Due: 11/29/18 I certify that SNF services are required to be given on an inpatient basis because of the above named patient's need for senior care care on a continuing basis for the condition(s) for which he/she was receiving inpatient hospital services prior to his/her transfer to the SNF. The patient's current needs for skilled care includes: [PT/OT, intermittent lab monitoring, dietary consult] Sirena Araya, N.P. 11/29/18
[2018-11-29] MEDS ORDERED: PNEUM 23-VAL ADULT IM ONE (14:22)
[2018-11-29] MEDS ORDERED: ACETAMINOPHEN 325 MG TAB PO PRN (14:53)
[2018-11-29] MEDS ORDERED: ZINC OXIDE 28.35 GM TUBE TOP ONE (15:07)
[2018-11-29] MEDS: GABAPENTIN 400 MG PO SCH ×2 (16:30→21:56)
[2018-11-29] MEDS: HYDROCODONE/APAP 5/325MG TABLET PO PRN ×2 (17:53→21:54)
[2018-11-29] MEDS ORDERED: BUDESONIDE 0.5 MG/2 ML INH SCH ×2 (18:00→22:00)
[2018-11-29] MEDS: IPRATROPIUM/ALBUTEROL (0.5MG/3MG) NEB INH SCH ×2 (19:51→22:17)
[2018-11-29] MEDS: CARVEDILOL 3.125 MG TABLET PO SCH (21:54)
[2018-11-29] MEDS: MECLIZINE 25 MG TABLET PO SCH (21:54)
[2018-11-29] MEDS: PRESERVISION PO SCH (21:56)
[2018-11-29] MEDS: CARAFATE 1 GM PO SCH (21:56)
[2018-11-29] MEDS: ZOCOR 80 MG PO SCH (21:56)
[2018-11-29] MEDS: BUDESONIDE 0.5 MG/2 ML INH SCH (22:17)
[2018-11-30] MEDS: IPRATROPIUM/ALBUTEROL (0.5MG/3MG) NEB INH SCH ×5 (05:37→22:08)
[2018-11-30] MEDS: HYDROCODONE/APAP 5/325MG TABLET PO PRN ×3 (06:17→23:06)
[2018-11-30] MEDS: CYCLOBENZAPRINE 10MG TABLET PO PRN ×2 (06:18→23:06)
[2018-11-30] MEDS: MECLIZINE 25 MG TABLET PO SCH ×2 (09:30→23:04)
[2018-11-30] MEDS: ISOSORBIDE MONONITRATE 30 MG TAB.ER.24H PO SCH (09:31)
[2018-11-30] MEDS: ASPIRIN 81 MG TABEC PO SCH (09:31)
[2018-11-30] MEDS: HYDROCHLOROTHIAZIDE 25 MG TABLET PO SCH (09:31)
[2018-11-30] MEDS: CLOPIDOGREL 75MG TABLET PO SCH (09:31)
[2018-11-30] MEDS: CARVEDILOL 3.125 MG TABLET PO SCH ×2 (09:31→23:04)
[2018-11-30] MEDS: LOSARTAN POTASSIUM 100 MG TABLET PO SCH (09:31)
[2018-11-30] MEDS: GABAPENTIN 400 MG PO SCH ×3 (09:33→23:02)
[2018-11-30] MEDS: PRESERVISION PO SCH ×2 (09:34→23:03)
[2018-11-30] MEDS: OMEPRAZOLE 40 MG PO SCH (09:34)
--- NOTE | 2018-11-30 09:38 | Rehab Evaluation ---
Patient Information - Patient Information Diagnosis: multiple rehab services due to lumbar compression fractures Ordered Treatment: OT Evaluate and Treat Status: Initial Evaluation Surgery: No History: Detail (Pt fell at home sustaining a lumbar compression fracture.) Past Medical/Surgical Hx: PAST MEDICAL/SURGICAL HISTORY Past Surgical History cardiac stent femoral stents chest (15 yrs old from tb) PMH - Respiratory Hx Respiratory Disorders Yes Hx Bronchitis Yes Hx Chronic Obstructive Yes: no official dx Pulmonary Disease (COPD) Hx Dyspnea Yes Hx Tuberculosis Yes PMH - Cardiovascular Hx Cardiovascular Disorders Yes Hx Abnormal EKG Yes Hx Cardiac Catheterization Yes Hx Heart Attack Yes Hx Hypertension Yes PMH - Neuro Hx Neurological Disorders No Hx Dizziness Yes: occasional Hx Neuropathy Yes PMH - GI Hx Gastrointestinal Disorders No Hx Gastroesophageal Reflux Yes PMH - Hx Genitourinary Disorders No PMH - Endocrine Hx Endocrine Disorders No Hx Diabetes Yes PMH - Musculoskeletal Hx Musculoskeletal Disorders No Hx Arthritis Yes Hx Back Injury Yes: fx hx PMH - Psych Hx Psychiatric Problems No PMH - Hematology/Oncology Hx Hematology/Oncology No Disorders Premorbid Status: Detail (Pt lives alone in a single story mobile home. Her daughter and son in law live next door. She has 6 steps at the entrance with jesse handrailings which are far apart. Her son in law assists her with going up and down the stairs. She has a tub/shower combination with an extended shower seat and her daughter assists her with showering. She has a standard height toilet with a grab bar on the wall opposite the toilet. She receives meals on wheels and her daughter and son in law complete all home mgmt, meal prep and laundry. She was Ind with dressing self and toileting. She ambulated with a 4 wheeled walker in the mobile home.) Precautions: [place], Fall - Time With Patient Total Time Spent With Patient (Min): 35 Treatment Procedures: Detail (OT eval low complexity) Subjective Information - Subjective Information Per Patient Objective Data - Pain Pain Present: Yes (0/10 at rest, 4/10 pain in right low quadrant with movement) - Mental Status Patient Orientation: Oriented x3 - Visual Perception Deficit (Pt reports she has macular degeneration although she feels her vision is functional.) - ROM Not within normal limits (Right shoulder flexion 75 degrees actively, left shoulder flexion 90 degrees actively. Jesse elbow, wrist and hand AROM WNL.) - Strength/Tone Not within normal limits (Jesse shoulder flexion 3-/5, jesse elbow flexion 4/5, jesse elbow extension 4/5, jesse dietary service aide 4/5) - Coordination Deficit (Pt reports difficulty with manipulating buttons due to impaired coordination.) - Bed Mobility Independent (Ind with supine to sit.) - Transfers Needs Assist (Pt required max x 1 and mod x 1 for sit to stand from EOB and commode and mod assist x 2 for pivot transfer from EOB to commode and from commode to recliner chair.) - Balance Balance Sitting: Good Balance Standing: Poor - Sensation Intact - Gait Detail (Pt unable to ambulate at this time. See PT note for details.) - ADL's/IADL's Detail (Pt required total assist for toileting using commode including pants management and wiping. Pt required max assist to doff soiled briefs and PJ bottoms and don clean briefs and PJ bottoms as well as total assist to don tennis shoes.) Therapy Assessment - Therapy Assessment Detail (Pt presents with significant deficits with mobility and self care tasks. ) Problem List - Problem List Occupational Therapy Problem List: Detail (1. Decreased Ind with total body dressing. 2. Decreased functional mobility needed for safe and Ind self cares. 3. Decreased UE strength and endurance needed for safe and Ind self cares. 4. Decreased Ind with showering.) Goals - Goals Occupational Therapy Goals: 1. Pt will be Ind with total body dressing using modified techniques as needed. 2. Pt will be Ind with sit to stand from EOB, toilet and chair heights to allow Ind with self cares. 3. Pt will demonstrate improved UE function to allow Ind with total body dressing and showering. 4. Pt will be safe and Ind with total body showering. Prognosis - Prognosis Good Plan - Plan Occupational Therapy Plan: OT 2-4 days per week to address goals and problem list as above.
--- NOTE | 2018-11-30 09:42 | Rehab Evaluation ---
Patient Information - Patient Information Diagnosis: Deconditioning s/p L4 compression fracture Ordered Treatment: PT Evaluate and Treat Status: Initial Evaluation Past Medical/Surgical Hx: PAST MEDICAL/SURGICAL HISTORY Past Surgical History cardiac stent femoral stents chest (15 yrs old from tb) PMH - Respiratory Hx Respiratory Disorders Yes Hx Bronchitis Yes Hx Chronic Obstructive Yes: no official dx Pulmonary Disease (COPD) Hx Dyspnea Yes Hx Tuberculosis Yes PMH - Cardiovascular Hx Cardiovascular Disorders Yes Hx Abnormal EKG Yes Hx Cardiac Catheterization Yes Hx Heart Attack Yes Hx Hypertension Yes PMH - Neuro Hx Neurological Disorders No Hx Dizziness Yes: occasional Hx Neuropathy Yes PMH - GI Hx Gastrointestinal Disorders No Hx Gastroesophageal Reflux Yes PMH - Hx Genitourinary Disorders No PMH - Endocrine Hx Endocrine Disorders No Hx Diabetes Yes PMH - Musculoskeletal Hx Musculoskeletal Disorders No Hx Arthritis Yes Hx Back Injury Yes: fx hx PMH - Psych Hx Psychiatric Problems No PMH - Hematology/Oncology Hx Hematology/Oncology No Disorders Premorbid Status: Detail (The patient prior to fall was ambulatory with her 4 wheeled walker and was independent with dressing and toileting. The patient had assistance with showering from daughter and son-in-law/daughter asssisted with meals and all print manager. The patient received meals on wheels.) Social History: Detail (The patient lives in a mobile home with 6 steps with one railing with daughter and son-in -law living next door. The bathroom has the folllowing: tub shower combination with extended shower chair with a suction grab bar, standard height toilet with a grab bar in front. The patient has a 4 wheeled walker.) Precautions: [place], Fall - Time With Patient Total Time Spent With Patient (Min): 30 Treatment Procedures: Detail (Initial Evaluation, transfer training.) Subjective Information - Subjective Information Per Patient (The patient had abdominal pain and back pain when sitting up. The abdominal pain was level 4.) Objective Data - Mental Status Patient Orientation: Oriented x3 - Visual Perception Deficit (Macular degeneration.) - ROM Within normal limits (LE ROM was WFL.) - Strength/Tone Not within normal limits (LE was as follows: hip flexors bilaterally 3/5, bilaterally hip abductors and hip adductors 3+/5, quadriceps 4/5, hamstrings L3+ /5, R 4-/5, ankle plantar flexors 4-/5, dorsiflexors 2+/5.) - Bed Mobility Independent (The patient was independent with supine to sit with head of the bed elevated.) - Transfers Needs Assist (The patient required max PA of 1, mod PA of 1 with sit to stand from bed and from commode. The patient required moderate PA of 2 with pivot transfer from edge of bed to commode. The patient transferred with use of 4 wheeled walker from commode to recliner, taking two to three side ways steps with CG of 1, SBA of 1. The patient leaned slightly posterior during transfers . ) - Balance Balance Sitting: Good Balance Standing: Poor (The patient required support of 4 wheeled walker and experienced LE tremoring R LE greater then L . The patient hyperextended knees bilaterally to maintain upright position.) - Sensation Deficit (Sensation testing was deferred, however patient has bilateral LE neuropathy per her report.) - Gait Detail (The patient was unable to ambulate to bathroom x 2 attempts, however patient did take 3 sideways steps to commode during transfer.) Therapy Assessment - Therapy Assessment Detail (The patient exhibits LE weakness and tremoring which is limiting her ability to transfer and ambulate at this time. The patient requires assistance with transfers and is nonambulatory. Patient's goal is to return to previous functional status. Due to few personal factors and stable condition PT evaluation complexity is rated as low.) Problem List - Problem List Physical Therapy Problem List: Detail (1) Decreased bilateral LE strength 2) Assistance with transfers 3) Nonambulatory 4) Decreased balance 5) LE tremors) Goals - Goals Physical Therapy Goals: 1) The patient will ambulate on levels with appropriate assistive device household distances with supervision for safety. 2) The patient will be CG/supervision with all transfers. 3) Increase LE strength 1/3 muscle grade to increase stability of gait. 4) The patient will ambulate on stairs with CG/minimal assist of 1 (previous functional level). Prognosis - Prognosis Moderate Plan - Plan Physical Therapy Plan: PT 1-2 times a day for gait training, transfer training, balance and LE strengthening exercises.
[2018-11-30] MEDS: BUDESONIDE 0.5 MG/2 ML INH SCH ×2 (10:27→22:08)
--- NOTE | 2018-11-30 15:45 | Physical Therapy Tx Note ---
Physical Therapy Tx Note - Treatment Note Tolerated: Good Total Time Spent With Patient: 25 Physical Therapy Tx Note: Detail (The patient was up in chair when PT arrived. The patient was able to complete sit to stand x 3 with CG/minimal PA from recliner chair. The patient ambulated 2 feet x 3 with CG of 1. The patient's LE' s gave out x 1 with increased flexion at hips and knees. The patient then completed LE strengthening exercises seated including resisted hip adduction and abduction x 10 reps, LAQ x 5 reps and heel toe raises x 5 reps. L LE temoring was noted after the 5th repetition of LAQ. Improved ability to complete sit to stand and ambulate this pm was noted.) Physical Therapy Problem List: Detail (1) Decreased bilateral LE strength 2) Assistance with transfers 3) Nonambulatory 4) Decreased balance 5) LE tremors) Physical Therapy Goals: 1) The patient will ambulate on levels with appropriate assistive device household distances with supervision for safety. 2) The patient will be CG/supervision with all transfers. 3) Increase LE strength 1/3 muscle grade to increase stability of gait. 4) The patient will ambulate on stairs with CG/minimal assist of 1 (previous functional level). Physical Therapy Plan: PT 1-2 times a day for gait training, transfer training, balance and LE strengthening exercises.
[2018-11-30] MEDS ORDERED: ZINC OXIDE 28.35 GM TUBE TOP PRN (16:30)
[2018-11-30] MEDS: CARAFATE 1 GM PO SCH (23:03)
[2018-11-30] MEDS: ZOCOR 80 MG PO SCH (23:03)
[2018-12-01] MEDS: IPRATROPIUM/ALBUTEROL (0.5MG/3MG) NEB INH SCH ×5 (05:41→21:42)
[2018-12-01 06:54] LABS: ALB/GLOB RATIO 1.1 (1.1-1.8); ALBUMIN 3.4 g/dL (4.0-5.0); ALKALINE PHOSPHATASE 61 U/L (35-104); ALT/SGPT 12 U/L (<33); AST/SGOT 18 U/L (10.0-35.0); BLOOD UREA NITROGEN 25 mg/dL (8-23); CREATININE 0.6 mg/dL (0.5-0.9); EST GLOMERULAR FILTRATION RATE > 60 mL/min; GLUCOSE,RANDOM 103 mg/dL (74-109); TOTAL PROTEIN 6.6 g/dL (6.6-8.7)
[2018-12-01] MEDS: HYDROCODONE/APAP 5/325MG TABLET PO PRN ×3 (08:12→23:07)
[2018-12-01] MEDS: BUDESONIDE 0.5 MG/2 ML INH SCH ×2 (09:49→21:42)
[2018-12-01] MEDS: ISOSORBIDE MONONITRATE 30 MG TAB.ER.24H PO SCH (10:00)
[2018-12-01] MEDS: CARVEDILOL 3.125 MG TABLET PO SCH ×2 (10:10→23:06)
[2018-12-01] MEDS: MECLIZINE 25 MG TABLET PO SCH ×2 (10:11→23:06)
[2018-12-01] MEDS: CLOPIDOGREL 75MG TABLET PO SCH (10:11)
[2018-12-01] MEDS: HYDROCHLOROTHIAZIDE 25 MG TABLET PO SCH (10:11)
[2018-12-01] MEDS: LOSARTAN POTASSIUM 100 MG TABLET PO SCH (10:11)
[2018-12-01] MEDS: ASPIRIN 81 MG TABEC PO SCH (10:11)
[2018-12-01] MEDS: GABAPENTIN 400 MG PO SCH ×3 (10:14→23:08)
[2018-12-01] MEDS: OMEPRAZOLE 40 MG PO SCH (10:15)
[2018-12-01] MEDS: PRESERVISION PO SCH ×2 (10:15→23:08)
--- NOTE | 2018-12-01 10:32 | Occupational Therapy Tx Note ---
Occupational Therapy Tx Note - Treatment Note Tolerated: Good Total Time Spent With Patient: 45 (ADL) Occupational Therapy Treatment Note: Detail (S: Pt up in recliner, reports sleeping well last night. O: Sit to stand with CG assist and pivot transferred to wheelchair with verbal cues and CG assist. Pt transported to sink via wheelchair. Pt doffed PJ top Indly and completed upper body sponge bath with assist for set up. Pt donned PJ top with min assist to orient garment. Pt stood from wheelchair with CG assist and use of sink to hold onto, she was able to pull pants and briefs over hips with min assist to maintain static standing. Pt able to doff tennis shoes and pull PJ bottoms and briefs over feet Indly. Pt completed sponge bathing legs Indly and required CG assist for static standing to wash buttocks and carrie area. Pt donned briefs and PJ bottoms with assist to start over feet and mod assist to extractor puller hips while in standing as pt needed to hold onto sink for balance. Pt donned tennis shoes with mod assist. Pt completed oral hygiene and brushed hair Indly. Pt transported back to recliner and pivot transferred to recliner with min assist. A: Significant improvement in sit to stand and transfers this am, pt fatigued and required short rest breaks during self cares, she demonstrates ataxic movement in arms and legs at times.) Occupational Therapy Problem List: Detail (1. Decreased Ind with total body dressing. 2. Decreased functional mobility needed for safe and Ind self cares. 3. Decreased UE strength and endurance needed for safe and Ind self cares. 4. Decreased Ind with showering.) Occupational Therapy Goals: 1. Pt will be Ind with total body dressing using modified techniques as needed. 2. Pt will be Ind with sit to stand from EOB, toilet and chair heights to allow Ind with self cares. 3. Pt will demonstrate improved UE function to allow Ind with total body dressing and showering. 4. Pt will be safe and Ind with total body showering. Prognosis: Good Occupational Therapy Plan: OT 2-4 days per week to address goals and problem list as above.
--- NOTE | 2018-12-01 12:28 | Physical Therapy Tx Note ---
Physical Therapy Tx Note - Treatment Note Tolerated: Good Total Time Spent With Patient: 30 Physical Therapy Tx Note: Detail (The patient was up in chair when PT arrived. The patient was able to complete sit to and from stand from recliner with CG. The patient ambulated with 4 wheeled walker with CG of 1 plus 1 to follow with wheelchair 34 feet x 1, 13 feet x 1 . The patient also transferred to toilet with use of grab bar with CG of 1. The patient requires min/mod PA of 1 with sit to stand from lower surface. The patient exhibited improved mobility today.) Physical Therapy Problem List: Detail (1) Decreased bilateral LE strength 2) Assistance with transfers 3) Nonambulatory 4) Decreased balance 5) LE tremors) Physical Therapy Goals: 1) The patient will ambulate on levels with appropriate assistive device household distances with supervision for safety. 2) The patient will be CG/supervision with all transfers. 3) Increase LE strength 1/3 muscle grade to increase stability of gait. 4) The patient will ambulate on stairs with CG/minimal assist of 1 (previous functional level). Physical Therapy Plan: PT 1-2 times a day for gait training, transfer training, balance and LE strengthening exercises.
[2018-12-01] MEDS: ACETAMINOPHEN 500 MG TABLET PO SCH ×2 (16:27→23:05)
[2018-12-01] MEDS: DOCUSATE SODIUM 100 MG CAPSULE PO SCH (17:27)
[2018-12-01] MEDS: CYCLOBENZAPRINE 10MG TABLET PO PRN (23:06)
[2018-12-01] MEDS: ZOCOR 80 MG PO SCH (23:08)
[2018-12-01] MEDS: CARAFATE 1 GM PO SCH (23:08)
[2018-12-02] MEDS: IPRATROPIUM/ALBUTEROL (0.5MG/3MG) NEB INH SCH ×5 (06:07→21:39)
[2018-12-02] MEDS: ACETAMINOPHEN 500 MG TABLET PO SCH ×3 (06:08→22:05)
[2018-12-02] MEDS ORDERED: POLYETHYLENE GLY 17 GM PACKET PO PRN (09:00)
[2018-12-02] MEDS: BUDESONIDE 0.5 MG/2 ML INH SCH ×2 (09:38→21:39)
[2018-12-02] MEDS: DOCUSATE SODIUM 100 MG CAPSULE PO SCH (09:46)
[2018-12-02] MEDS: CARVEDILOL 3.125 MG TABLET PO SCH ×2 (09:46→22:04)
[2018-12-02] MEDS: HYDROCHLOROTHIAZIDE 25 MG TABLET PO SCH (09:47)
[2018-12-02] MEDS: CLOPIDOGREL 75MG TABLET PO SCH (09:47)
[2018-12-02] MEDS: ASPIRIN 81 MG TABEC PO SCH (09:47)
[2018-12-02] MEDS: CHOLECALCIFEROL 1,000 UNIT TABLET PO SCH (09:47)
[2018-12-02] MEDS: ISOSORBIDE MONONITRATE 30 MG TAB.ER.24H PO SCH (09:51)
[2018-12-02] MEDS: MECLIZINE 25 MG TABLET PO SCH ×2 (09:51→22:04)
[2018-12-02] MEDS: LOSARTAN POTASSIUM 100 MG TABLET PO SCH (09:52)
[2018-12-02] MEDS: GABAPENTIN 400 MG PO SCH ×3 (09:53→22:07)
[2018-12-02] MEDS: PRESERVISION PO SCH ×2 (09:54→22:07)
[2018-12-02] MEDS: OMEPRAZOLE 40 MG PO SCH (09:54)
--- NOTE | 2018-12-02 10:36 | Physical Therapy Tx Note ---
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 Patient states she has pain and discomfort due to constipation today. Patient performed the following seated exercises x10-20 reps each: marching, LAQ , hamstring curls with red theraband, heel raises, toe raises, hip abduction with red theraband, hip adductor squeezes, and glut squeezes. Patient declined further exercises due to constipation pain and back pain. Patient was left seated in chair with call light within reach.) Physical Therapy Problem List: Detail (1) Decreased bilateral LE strength 2) Assistance with transfers 3) Nonambulatory 4) Decreased balance 5) LE tremors) Physical Therapy Goals: 1) The patient will ambulate on levels with appropriate assistive device household distances with supervision for safety. 2) The patient will be CG/supervision with all transfers. 3) Increase LE strength 1/3 muscle grade to increase stability of gait. 4) The patient will ambulate on stairs with CG/minimal assist of 1 (previous functional level). Prognosis: Good Physical Therapy Plan: PT 1-2 times a day for gait training, transfer training, balance and LE strengthening exercises.
--- NOTE | 2018-12-02 10:55 | Physician Progress Note ---
Subjective - Date Date of Progress Note: 12/02/18 - Admitting Diagnosis Diagnosis: deconditioning due to lumbar compression fracture and hyponatremia - Subjective Events since last encounter: PT/OT report she is making gains and able to perform ADLs with increased independence. BLE leg wobbling has significantly improved since admit. Continues to drink broth every morning to support hyponatremia. Pain is controlled with current Taft and Tylenol regimen. Has not moved bowels since admit, Miralax ordered daily PRN along with prune juice. Patient has no further complaints at this time. Nursing Care Plan Problem List Activity Intolerance (Swing Bed) Start: 11/29/18 13: 48 Freq: Status: Active Protocol: Created 11/29/18 13:48 SAF (Rec: 11/29/18 13:48 SAF [id number]) Altered Thought Process (Fall Risk) Start: 11/29/18 14: 04 Freq: Status: Active Protocol: Created 11/29/18 14:04 SAF (Rec: 11/29/18 14:04 SAF [id number]) Impaired Mobility (Fall Risk) Start: 11/29/18 14: 04 Freq: Status: Active Protocol: Created 11/29/18 14:04 SAF (Rec: 11/29/18 14:04 SAF [id number]) Knowledge Deficit (Swing Bed) Start: 11/29/18 13: 48 Freq: Status: Active Protocol: Created 11/29/18 13:48 SAF (Rec: 11/29/18 13:48 SAF [id number]) Pain (Swing Bed) Start: 11/29/18 13: 48 Freq: Status: Active Protocol: Created 11/29/18 13:48 SAF (Rec: 11/29/18 13:48 SAF [id number]) Risk for Injury (Fall Risk) Start: 11/29/18 14: 04 Freq: Status: Active Protocol: Created 11/29/18 14:04 SAF (Rec: 11/29/18 14:04 SAF [id number]) - Subjective Detail Constitutional: Denies: Chills, Fever ENT: Denies: Congestion Respiratory: Denies: Cough, Dyspnea Cardiovascular: Denies: Chest pain, Dyspnea on exertion, Edema Endocrine: Denies: Fatigue Gastrointestinal: Reports: Constipation. Denies: Abdominal pain Musculoskeletal: Reports: Arthralgia, Back pain. Denies: Joint swelling, Neck pain Skin: Denies: Rash Neurological: Denies: Confusion General - Cognitive Patterns Speech: Normal Thought Process: Intact Thought Content: Normal - Communication Select best description of speech pattern: Clear Speech Ability to express ideas and wants: Understood Understanding verbal content: Understands - Mood and Behavior Patterns Appearance: Well Groomed Mood: Normal Attitude: Cooperative Motor Activity: Calm Affect: Appropriate Hallucinations: Denies - Physical Functioning Activity Level: Up with assist x2 Turning: With partial assist ROM Ability: Moves all extremities Assistive Devices: 4 Wheel Walker Ambulation Ability: Dependent Bed Mobility: Needs Assist Transfer Ability: Needs Assist Bathing Ability: Needs Assist Personal Hygiene: Needs Assist Dressing Ability: Needs Assist Eating (Feeding) Ability: Independent Toileting Ability: Needs Assist Administer Own Medication: Independent - Continence Bowel Pattern: Constipated Bladder Pattern: Normal Urinary Incontinence: Stress Meds/Allergies - Allergies Allergies Allergy/AdvReac Type Severity Reaction Status Date / Time codeine AdvReac ALTERED Unverified 11/04/18 17:22 MENTAL STATUS - Active Medications Current Medications Acetaminophen (Tylenol 500mg Tab) 500 mg PO Q8HR [facility] Last Admin: 12/02/18 06:08 Dose: 500 mg Hydrocodone Bitart/Acetaminophen (Taft 5mg/325mg) 1 each PO Q8H PRN PRN Reason: PAIN - MILD TO MODERATE (1-7) Last Admin: 12/01/18 16:26 Dose: 1 each Hydrocodone Bitart/Acetaminophen (Taft 5mg/325mg) 2 each PO Q8H PRN PRN Reason: PAIN - SEVERE (8-10) Last Admin: 12/01/18 23:07 Dose: 2 each Albuterol/Ipratropium (Duoneb) 3 ml INH RESP.Q4H.[facility] Last Admin: 12/02/18 09:38 Dose: 3 ml Aspirin (Ecotrin (Ec)) 81 mg PO DAILY [facility] Last Admin: 12/02/18 09:47 Dose: 81 mg Budesonide (Pulmicort) 0.5 mg INH 1000,2200 [facility] Last Admin: 12/02/18 09:38 Dose: 0.5 mg Carvedilol (Coreg) 3.125 mg PO BID [facility] Last Admin: 12/02/18 09:46 Dose: 3.125 mg Clopidogrel Bisulfate (Plavix) 75 mg PO DAILY [facility] Last Admin: 12/02/18 09:47 Dose: 75 mg Cyclobenzaprine HCl (Flexeril) 5 mg PO QHS PRN PRN Reason: MUSCLE SPASM Last Admin: 12/01/18 23:06 Dose: 5 mg Docusate Sodium (Colace) 100 mg PO DAILY [facility] Last Admin: 12/02/18 09:46 Dose: 100 mg Hydrochlorothiazide (Hctz 25mg) 25 mg PO DAILY [facility] Last Admin: 12/02/18 09:47 Dose: 25 mg Isosorbide Mononitrate (Imdur) 30 mg PO DAILY [facility] Last Admin: 12/02/18 09:51 Dose: 30 mg Losartan Potassium (Losartan Potassium) 100 mg PO DAILY [facility] Last Admin: 12/02/18 09:52 Dose: 100 mg Meclizine HCl (Antivert) 12.5 mg PO BID [facility] Last Admin: 12/02/18 09:51 Dose: 12.5 mg Patient Own Med: Gabapentin 400mg Capsule 800 each PO TID [facility] Last Admin: 12/02/18 09:53 Dose: 800 each Patient Own Med: Omeprazole 40mg Capsule 40 each PO DAILY [facility] Last Admin: 12/02/18 09:54 Dose: 40 each Patient Own Med: Zocor 80mg ( Simvastatin) 80 each PO QHS [facility] Last Admin: 12/01/18 23:08 Dose: 80 each Patient Own Med: Carafate 1 Gm ( Sucralafate) 1 each PO QHS [facility] Last Admin: 12/01/18 23:08 Dose: 1 each Patient Own Med: (Preservision Capsule) 1 each PO BID [facility] Last Admin: 12/02/18 09:54 Dose: 1 each Polyethylene Glycol (Miralax) 17 gm PO DAILY PRN PRN Reason: CONSTIPATION Vitamin D (Vitamin D3) 2,000 unit PO DAILY [facility] Last Admin: 12/02/18 09:47 Dose: 2,000 unit Zinc Oxide (Desitin) 10 gm TOP ASDIR PRN PRN Reason: RASH Objective - Vital Signs Vital Signs: Vital Signs - Last 24 Hrs Temp Pulse Pulse Resp BP Pulse Ox 12/02/18 09:39 92 H 20 12/02/18 08:00 99.1 F 97 H 18 145/52 91 L 12/02/18 06:09 80 16 92 L 12/01/18 21:41 90 16 90 L 12/01/18 20:00 97.6 F 96 H 22 116/53 92 L 12/01/18 18:07 94 H 20 12/01/18 14:02 86 18 92 L - General General Appearance: Alert, Oriented x3, Cooperative, No acute distress - Head Head exam: Normal inspection - Eye Eye exam: Normal appearance, PERRL Pupils: Normal accommodation - ENT ENT exam: Normal exam, Mucous membranes moist, Normal external ear exam, Normal orophraynx, TM's normal bilaterally Ear exam: Normal external inspection. negative: External canal tenderness Nasal Exam: Normal inspection. negative: Discharge, Sinus tenderness Mouth exam: Normal external inspection, Tongue normal Teeth exam: Normal inspection. negative: Dental caries Throat exam: Normal inspection. negative: Tonsillar erythema, Tonsillar exudate - Neck Neck exam: Normal inspection, Full ROM. negative: Tenderness - Respiratory Respiratory exam: Normal lung sounds bilaterally. negative: Respiratory distress - Cardiovascular Cardiovascular Exam: Regular rate, Normal rhythm, Normal heart sounds Peripheral Pulses: 2+: Dorsalis Pedis (R), Dorsalis Pedis (L) - GI/Abdominal GI/Abdominal exam: Soft, Normal bowel sounds. negative: Tenderness - Rectal Rectal exam: Deferred - exam: Deferred - Extremities Extremities exam: Normal inspection, Full ROM, Normal capillary refill. negative: Tenderness - Back Back exam: Reports: Tenderness - Neurological Neurological exam: Alert, Oriented X3, Reflexes normal - Skin Skin exam: Dry, Intact, Normal color, Warm H&P Results - Labs Result Diagrams: 12/01/18 06:20 Discharge Potential - Discharge Needs Patient Discharge Plan Description: Visiting Nurse Community Services Needed at Discharge: Home Health Aide, Home Health Nurse, Physical Therapy Plan - Swing Bed Certification Initial Certification Due: 11/29/18 14 Day Re-Cert Due: 12/13/18 44 Day Re-Cert Due: 01/12/19 74 Day Re-Cert Due: 02/11/19 - Detailed Diagnosis and Plan (1) Physical deconditioning Current Visit: Yes Status: Acute Base Code: R53.81 - OTHER MALAISE Comment : 12/02/18: -acute L4 fracture and lumbar DDD -PT/OT m-f (2) Weakness Current Visit: No Status: Acute Base Code: R53.1 - WEAKNESS Comment: : -Likely secondary to deconditioning, acute L4 fracture, and hyponatremia -PT/OT (3) Lumbar compression fracture Current Visit: Yes Status: Acute Qualifiers: Encounter type: initial encounter Lumbar vertebra fracture level: L4 Fracture type: closed Qualified Code(s): S32.040A - Wedge compression fracture of fourth lumbar vertebra, initial encounter for closed fracture Base Code: S32.000A - WEDGE COMPRESSION FRACTURE OF UNSP LUMBAR VERTEBRA, INIT Comment: 12/02/18: -New mild L4 compression fracture -Sleepiness on current Taft dose, will decrease Taft 5/325 to 1-2 Q8hr PRN and Tylenol 650mg Q 8 hr scheduled - Flexeril 5mg QHS PRN -PT/OT (4) Hyponatremia Current Visit: Yes Status: Acute Base Code: E87.1 - HYPO-OSMOLALITY AND HYPONATREMIA Comment: 12/02/18: - Chronic, last sodium 132 12/01/18, Potassium 4.6 - Repeat sodium 12/04/18, pt. continues to drink sodium broth - [employer] onboard for sodium and protein rich foods (5) DNR (do not resuscitate) Current Visit: No Status: Acute Base Code: Z66 - DO NOT RESUSCITATE Comment: 12/02/18: -Pt. is a DNR -Updated signed form in chart (6) DVT prophylaxis Current Visit: Yes Status: Acute Base Code: [id number] - Comment: 12/02/18: -Continue home plavix 75mg daily and ASA 81mg daily
--- NOTE | 2018-12-02 15:39 | Physical Therapy Tx Note ---
Physical Therapy Tx Note - Treatment Note Tolerated: Good Total Time Spent With Patient: 15 Physical Therapy Tx Note: Detail (The patient complained of aching in both LE's and back pain which she did not rate using 0-10 pain scale. The patient was supervision with sit to stand from high surface and minimal PA with sit to and from stand from low surface. The patient ambulated with 4 wheeled walker 30 feet x 1 and 40 feet x 1 with CG for safety. Shortness of breath was noted with ambulation. Patient continues to have improvement with ambulation and is requiring less assistance with transfers.) Physical Therapy Problem List: Detail (1) Decreased bilateral LE strength 2) Assistance with transfers 3) Nonambulatory 4) Decreased balance 5) LE tremors) Physical Therapy Goals: 1) The patient will ambulate on levels with appropriate assistive device household distances with supervision for safety. 2) The patient will be CG/supervision with all transfers. 3) Increase LE strength 1/3 muscle grade to increase stability of gait. 4) The patient will ambulate on stairs with CG/minimal assist of 1 (previous functional level). Physical Therapy Plan: PT 1-2 times a day for gait training, transfer training, balance and LE strengthening exercises.
[2018-12-02] MEDS: HYDROCODONE/APAP 5/325MG TABLET PO PRN (17:01)
--- NOTE | 2018-12-02 17:15 | Occupational Therapy Tx Note ---
Occupational Therapy Tx Note - Treatment Note Total Time Spent With Patient: 18 (1 THEREX) Occupational Therapy Treatment Note: Detail (Educ. Pt on UB exercises to increase UB and hand strength and mobility in prep for increased indep. with fxl TFs and self-cares. Yellow theraputty hand and finger exercises - Pt demos understanding - decreased finger opposition all fingers noted, lateral pinch ability only. Arm chair pushups 10 reps x3. SOB noted between reps, Pt desat to 90% with 60 sec. recover with therapist initiated deep breathing. Pt with increased UB fatigue post session and verbalizes understanding to complete exercises in room with nursing 2x/day.) Occupational Therapy Problem List: Detail (1. Decreased Ind with total body dressing. 2. Decreased functional mobility needed for safe and Ind self cares. 3. Decreased UE strength and endurance needed for safe and Ind self cares. 4. Decreased Ind with showering.) Occupational Therapy Goals: 1. Pt will be Ind with total body dressing using modified techniques as needed. 2. Pt will be Ind with sit to stand from EOB, toilet and chair heights to allow Ind with self cares. 3. Pt will demonstrate improved UE function to allow Ind with total body dressing and showering. 4. Pt will be safe and Ind with total body showering. Prognosis: Good Occupational Therapy Plan: OT 2-4 days per week to address goals and problem list as above.
[2018-12-02] MEDS: CARAFATE 1 GM PO SCH (22:06)
[2018-12-02] MEDS: ZOCOR 80 MG PO SCH (22:09)
[2018-12-03] MEDS: IPRATROPIUM/ALBUTEROL (0.5MG/3MG) NEB INH SCH ×6 (05:46→22:01)
[2018-12-03] MEDS: ACETAMINOPHEN 500 MG TABLET PO SCH ×3 (05:57→21:54)
[2018-12-03] MEDS: CARVEDILOL 3.125 MG TABLET PO SCH ×2 (09:15→21:55)
[2018-12-03] MEDS: DOCUSATE SODIUM 100 MG CAPSULE PO SCH (09:15)
[2018-12-03] MEDS: HYDROCHLOROTHIAZIDE 25 MG TABLET PO SCH (09:16)
[2018-12-03] MEDS: ASPIRIN 81 MG TABEC PO SCH (09:16)
[2018-12-03] MEDS: OMEPRAZOLE 40 MG PO SCH (09:17)
[2018-12-03] MEDS: GABAPENTIN 400 MG PO SCH ×3 (09:17→21:57)
[2018-12-03] MEDS: CHOLECALCIFEROL 1,000 UNIT TABLET PO SCH (09:18)
[2018-12-03] MEDS: PRESERVISION PO SCH ×2 (09:18→21:57)
[2018-12-03] MEDS: CLOPIDOGREL 75MG TABLET PO SCH (09:18)
[2018-12-03] MEDS: LOSARTAN POTASSIUM 100 MG TABLET PO SCH (09:21)
[2018-12-03] MEDS: ISOSORBIDE MONONITRATE 30 MG TAB.ER.24H PO SCH (09:21)
[2018-12-03] MEDS: MECLIZINE 25 MG TABLET PO SCH ×2 (09:21→21:58)
[2018-12-03] MEDS: BUDESONIDE 0.5 MG/2 ML INH SCH ×2 (09:41→22:01)
--- NOTE | 2018-12-03 11:10 | Physical Therapy Tx Note ---
Physical Therapy Tx Note - Treatment Note Tolerated: Good Total Time Spent With Patient: 25 Physical Therapy Tx Note: Detail (Patient was standing in bathroom upon NURSE ORTHO and PT arrival. Patient states back painful today. Patient ambulated 124 feet with four wheeled walker CGA x2. Patient transferred stand to sit CGA x1. Patient performed the following seated exercises x10 reps each: heel raises, toe raises, LAQ, marching, adductor squeezes, isometric hip abduction, and sit to and from stand x5. Patient experienced loss of balance with ambulation required CGA x2 to regain balance. Patient states loss of balance due to feet not moving. Patient displays decreased strength and endurance with marching, LAQ, and isometric hip abduction. Patient reports feeling tired after treatment , with low back sore. Patient was left seated in chair with call light within reach.) Physical Therapy Problem List: Detail (1) Decreased bilateral LE strength 2) Assistance with transfers 3) Nonambulatory 4) Decreased balance 5) LE tremors) Physical Therapy Goals: 1) The patient will ambulate on levels with appropriate assistive device household distances with supervision for safety. 2) The patient will be CG/supervision with all transfers. 3) Increase LE strength 1/3 muscle grade to increase stability of gait. 4) The patient will ambulate on stairs with CG/minimal assist of 1 (previous functional level). Prognosis: Good Physical Therapy Plan: PT 1-2 times a day for gait training, transfer training, balance and LE strengthening exercises.
--- NOTE | 2018-12-03 16:33 | Physical Therapy Tx Note ---
Physical Therapy Tx Note - Treatment Note Tolerated: Good Total Time Spent With Patient: 35 Physical Therapy Tx Note: Detail (Patient was seated in chair on 2L oxygen upon CUSTODY ASSISTANT arrival. Patient transferred sit to and from stand CGA x1. Patient ambulated 13 feet x2 with four wheeled walker CGA x1. Patient transferred sit to and from stand CGA x1. Patient performed the following seated exercises x10 reps each with 2L oxygen: marching, LAQ, hamstring curls with red theraband, glut squeezes, abdominal isometrics, hip abduction with red theraband, heel raises, and toe raises. Patient tolerated treatment well. Patient displays shortness of breath with ambulation and exercises requiring some rest breaks. Patient displays decreased strength and endurance with ambulation, LAQ, toe raises, hamstring curls with theraband, hip abduction with theraband, and abdominal isometrics. Patient was left seated in chair with call light within reach.) Physical Therapy Problem List: Detail (1) Decreased bilateral LE strength 2) Assistance with transfers 3) Nonambulatory 4) Decreased balance 5) LE tremors) Physical Therapy Goals: 1) The patient will ambulate on levels with appropriate assistive device household distances with supervision for safety. 2) The patient will be CG/supervision with all transfers. 3) Increase LE strength 1/3 muscle grade to increase stability of gait. 4) The patient will ambulate on stairs with CG/minimal assist of 1 (previous functional level). Prognosis: Good Physical Therapy Plan: PT 1-2 times a day for gait training, transfer training, balance and LE strengthening exercises.
[2018-12-03] MEDS: HYDROCODONE/APAP 5/325MG TABLET PO PRN (18:21)
[2018-12-03] MEDS: CYCLOBENZAPRINE 10MG TABLET PO PRN (21:56)
[2018-12-03] MEDS: ZOCOR 80 MG PO SCH (21:56)
[2018-12-03] MEDS: CARAFATE 1 GM PO SCH (21:57)
[2018-12-04] MEDS: HYDROCODONE/APAP 5/325MG TABLET PO PRN ×2 (06:32→21:31)
[2018-12-04] MEDS: ACETAMINOPHEN 500 MG TABLET PO SCH ×3 (06:32→21:30)
[2018-12-04 06:38] LABS: BLOOD UREA NITROGEN 14 mg/dL (8-23); CREATININE 0.4 mg/dL (0.5-0.9); EST GLOMERULAR FILTRATION RATE > 60 mL/min; GLUCOSE,RANDOM 99 mg/dL (74-109)
[2018-12-04] MEDS: BUDESONIDE 0.5 MG/2 ML INH SCH ×2 (09:47→21:54)
[2018-12-04] MEDS: IPRATROPIUM/ALBUTEROL (0.5MG/3MG) NEB INH SCH ×4 (09:47→21:54)
[2018-12-04] MEDS: MECLIZINE 25 MG TABLET PO SCH ×2 (10:54→21:31)
[2018-12-04] MEDS: DOCUSATE SODIUM 100 MG CAPSULE PO SCH (10:55)
[2018-12-04] MEDS: ASPIRIN 81 MG TABEC PO SCH (10:56)
[2018-12-04] MEDS: HYDROCHLOROTHIAZIDE 25 MG TABLET PO SCH (10:56)
[2018-12-04] MEDS: ISOSORBIDE MONONITRATE 30 MG TAB.ER.24H PO SCH (10:57)
[2018-12-04] MEDS: CLOPIDOGREL 75MG TABLET PO SCH (10:58)
[2018-12-04] MEDS: LOSARTAN POTASSIUM 100 MG TABLET PO SCH (10:58)
[2018-12-04] MEDS: CHOLECALCIFEROL 1,000 UNIT TABLET PO SCH (10:58)
[2018-12-04] MEDS: GABAPENTIN 400 MG PO SCH ×3 (11:01→21:33)
[2018-12-04] MEDS: OMEPRAZOLE 40 MG PO SCH (11:02)
[2018-12-04] MEDS: PRESERVISION PO SCH ×2 (11:03→21:34)
[2018-12-04] MEDS: CARVEDILOL 3.125 MG TABLET PO SCH ×2 (11:04→21:32)
--- NOTE | 2018-12-04 13:17 | Physical Therapy Tx Note ---
Physical Therapy Tx Note - Treatment Note Physical Therapy Tx Note: Detail (The patient refused PT this pm stated she is too tired and has done too much today.The patient stated she has been able to rest. Patient also complained of lower back pain.) Physical Therapy Problem List: Detail (1) Decreased bilateral LE strength 2) Assistance with transfers 3) Nonambulatory 4) Decreased balance 5) LE tremors) Physical Therapy Goals: 1) The patient will ambulate on levels with appropriate assistive device household distances with supervision for safety. 2) The patient will be CG/supervision with all transfers. 3) Increase LE strength 1/3 muscle grade to increase stability of gait. 4) The patient will ambulate on stairs with CG/minimal assist of 1 (previous functional level). Physical Therapy Plan: PT 1-2 times a day for gait training, transfer training, balance and LE strengthening exercises.
--- NOTE | 2018-12-04 13:40 | Occupational Therapy Tx Note ---
Occupational Therapy Tx Note - Treatment Note Tolerated: Good Total Time Spent With Patient: 40 (ADL) Occupational Therapy Treatment Note: Detail (S: Pt up in chair, ready for showering. O: Sit to stand and amb to shower seat with 4 wheeled walker and SBA. Pt doffed PJ top, PJ bottom, briefs, socks and tennis shoes Indly. Pt completed showering in sitting and standing with use of grab bar, hand held shower and with SBA for standing to wash buttocks and carrie area. Pt required assist for washing back and she had difficulty holding onto soap due to decreased coordination in hands. Pt dried self Indly and donned PJ top, bottom , underwear, socks and velcro tennis shoes Indly. Pt brushed hair Indly. Pt amb back to chair with 4 wheeled walker and SBA. A: Pt was very short of breath throughout activity. Ind with total body dressing with extra time for rest breaks. Min assist for showering due to assist with washing back and picking up soap.) Occupational Therapy Problem List: Detail (1. Decreased Ind with total body dressing. 2. Decreased functional mobility needed for safe and Ind self cares. 3. Decreased UE strength and endurance needed for safe and Ind self cares. 4. Decreased Ind with showering.) Occupational Therapy Goals: 1. Pt will be Ind with total body dressing using modified techniques as needed. 2. Pt will be Ind with sit to stand from EOB, toilet and chair heights to allow Ind with self cares. 3. Pt will demonstrate improved UE function to allow Ind with total body dressing and showering. 4. Pt will be safe and Ind with total body showering. Prognosis: Good Occupational Therapy Plan: OT 2-4 days per week to address goals and problem list as above.
[2018-12-04] MEDS: MAGNESIUM HYDROXIDE 30 ML UDC PO PRN (14:46)
[2018-12-04] MEDS: CYCLOBENZAPRINE 10MG TABLET PO PRN (21:32)
[2018-12-04] MEDS: CARAFATE 1 GM PO SCH (21:33)
[2018-12-04] MEDS: ZOCOR 80 MG PO SCH (21:34)
[2018-12-05] MEDS: ACETAMINOPHEN 500 MG TABLET PO SCH ×3 (06:22→22:34)
[2018-12-05] MEDS: HYDROCODONE/APAP 5/325MG TABLET PO PRN (07:33)
[2018-12-05] MEDS: BUDESONIDE 0.5 MG/2 ML INH SCH ×2 (09:53→21:54)
[2018-12-05] MEDS: IPRATROPIUM/ALBUTEROL (0.5MG/3MG) NEB INH SCH ×4 (09:53→21:54)
[2018-12-05] MEDS: DOCUSATE SODIUM 100 MG CAPSULE PO SCH (11:10)
[2018-12-05] MEDS: HYDROCHLOROTHIAZIDE 25 MG TABLET PO SCH (11:10)
[2018-12-05] MEDS: MECLIZINE 25 MG TABLET PO SCH ×2 (11:11→22:35)
[2018-12-05] MEDS: CARVEDILOL 3.125 MG TABLET PO SCH ×2 (11:11→22:34)
[2018-12-05] MEDS: ASPIRIN 81 MG TABEC PO SCH (11:11)
[2018-12-05] MEDS: LOSARTAN POTASSIUM 100 MG TABLET PO SCH (11:12)
[2018-12-05] MEDS: PRESERVISION PO SCH ×2 (11:14→22:39)
[2018-12-05] MEDS: OMEPRAZOLE 40 MG PO SCH (11:14)
[2018-12-05] MEDS: GABAPENTIN 400 MG PO SCH ×3 (11:14→22:38)
[2018-12-05] MEDS: CLOPIDOGREL 75MG TABLET PO SCH (11:15)
[2018-12-05] MEDS: CHOLECALCIFEROL 1,000 UNIT TABLET PO SCH (11:16)
[2018-12-05] MEDS: ISOSORBIDE MONONITRATE 30 MG TAB.ER.24H PO SCH (11:17)
[2018-12-05] MEDS: MAGNESIUM HYDROXIDE 30 ML UDC PO PRN (13:17)
[2018-12-05] MEDS: CARAFATE 1 GM PO SCH (22:38)
[2018-12-05] MEDS: ZOCOR 80 MG PO SCH (22:39)
[2018-12-06] MEDS: HYDROCODONE/APAP 5/325MG TABLET PO PRN (05:01)
[2018-12-06] MEDS: ACETAMINOPHEN 500 MG TABLET PO SCH ×3 (06:13→21:56)
[2018-12-06] MEDS: DOCUSATE SODIUM 100 MG CAPSULE PO SCH (10:09)
[2018-12-06] MEDS: LOSARTAN POTASSIUM 100 MG TABLET PO SCH (10:09)
[2018-12-06] MEDS: MECLIZINE 25 MG TABLET PO SCH ×2 (10:09→21:55)
[2018-12-06] MEDS: HYDROCHLOROTHIAZIDE 25 MG TABLET PO SCH (10:10)
[2018-12-06] MEDS: CARVEDILOL 3.125 MG TABLET PO SCH ×2 (10:10→21:55)
[2018-12-06] MEDS: ISOSORBIDE MONONITRATE 30 MG TAB.ER.24H PO SCH (10:10)
[2018-12-06] MEDS: ASPIRIN 81 MG TABEC PO SCH (10:11)
[2018-12-06] MEDS: CHOLECALCIFEROL 1,000 UNIT TABLET PO SCH (10:11)
[2018-12-06] MEDS: CLOPIDOGREL 75MG TABLET PO SCH (10:11)
[2018-12-06] MEDS: PRESERVISION PO SCH ×2 (10:12→21:58)
[2018-12-06] MEDS: GABAPENTIN 400 MG PO SCH ×3 (10:12→21:58)
[2018-12-06] MEDS: OMEPRAZOLE 40 MG PO SCH (10:13)
[2018-12-06] MEDS: IPRATROPIUM/ALBUTEROL (0.5MG/3MG) NEB INH SCH ×4 (10:31→21:31)
[2018-12-06] MEDS: BUDESONIDE 0.5 MG/2 ML INH SCH ×2 (10:31→21:31)
[2018-12-06] MEDS: CARAFATE 1 GM PO SCH (21:57)
[2018-12-06] MEDS: ZOCOR 80 MG PO SCH (21:59)
[2018-12-07] MEDS: ACETAMINOPHEN 500 MG TABLET PO SCH ×3 (05:23→22:29)
[2018-12-07] MEDS: MAGNESIUM HYDROXIDE 30 ML UDC PO PRN (08:35)
[2018-12-07] MEDS ORDERED: BISACODYL 10 MG SUPP RC ONE (09:24)
[2018-12-07] MEDS: IPRATROPIUM/ALBUTEROL (0.5MG/3MG) NEB INH SCH ×4 (10:50→21:54)
[2018-12-07] MEDS: BUDESONIDE 0.5 MG/2 ML INH SCH ×2 (10:50→21:54)
[2018-12-07] MEDS: DOCUSATE SODIUM 100 MG CAPSULE PO SCH (11:42)
[2018-12-07] MEDS: POLYETHYLENE GLY 17 GM PACKET PO SCH (11:44)
[2018-12-07] MEDS: MECLIZINE 25 MG TABLET PO SCH ×2 (11:49→22:28)
[2018-12-07] MEDS: CARVEDILOL 3.125 MG TABLET PO SCH ×2 (11:50→22:29)
[2018-12-07] MEDS: ASPIRIN 81 MG TABEC PO SCH (11:50)
[2018-12-07] MEDS: ISOSORBIDE MONONITRATE 30 MG TAB.ER.24H PO SCH (11:51)
[2018-12-07] MEDS: LOSARTAN POTASSIUM 100 MG TABLET PO SCH (11:51)
[2018-12-07] MEDS: HYDROCHLOROTHIAZIDE 25 MG TABLET PO SCH (11:51)
[2018-12-07] MEDS: GABAPENTIN 400 MG PO SCH ×3 (11:52→22:31)
[2018-12-07] MEDS: OMEPRAZOLE 40 MG PO SCH (11:53)
[2018-12-07] MEDS: PRESERVISION PO SCH ×2 (11:53→22:31)
[2018-12-07] MEDS: CHOLECALCIFEROL 1,000 UNIT TABLET PO SCH (11:54)
[2018-12-07] MEDS: CLOPIDOGREL 75MG TABLET PO SCH (11:54)
--- NOTE | 2018-12-07 13:53 | Physical Therapy Tx Note ---
Physical Therapy Tx Note - Treatment Note Physical Therapy Tx Note: Detail (The patient refused PT this afternoon due to loose stools and back pain. will see patient tomorrow.) Physical Therapy Problem List: Detail (1) Decreased bilateral LE strength 2) Assistance with transfers 3) Nonambulatory 4) Decreased balance 5) LE tremors) Physical Therapy Goals: 1) The patient will ambulate on levels with appropriate assistive device household distances with supervision for safety. 2) The patient will be CG/supervision with all transfers. 3) Increase LE strength 1/3 muscle grade to increase stability of gait. 4) The patient will ambulate on stairs with CG/minimal assist of 1 (previous functional level). Physical Therapy Plan: PT 1-2 times a day for gait training, transfer training, balance and LE strengthening exercises.
--- NOTE | 2018-12-07 15:10 | Occupational Therapy Tx Note ---
Occupational Therapy Tx Note - Treatment Note Tolerated: Fair Total Time Spent With Patient: 40 (ADL, gait) Occupational Therapy Treatment Note: Detail (S: Pt up in chair, reports she is having difficulty with constipation. O: Sit to stand and amb 150 feet with 4 wheeled walker and SBA. Pt reports leg fatigue and she was transported to rehab via wheelchair. Pt had sudden urge to have a BM and was taken to the restroom where she transferred to the toilet with CG assist. Pt was very soiled and OT assisted pt with toileting hygiene and changing underwear and PJ bottoms. Pt completed toileting with mod assist due to having loose BM. After pt was cleaned up she agreed to complete tub transfer. Pt was Ind with using extended tub seat for tub transfer with verbal cues for proper technique. Pt was transported back to her room via wheelchair. Pt amb several feet to recliner chair with 4 wheeled walker and SBA. A: Pt Ind with tub transfer using extended shower seat, significant fatigue noted with toileting as well as pt reporting increased back pain after treatment) Occupational Therapy Problem List: Detail (1. Decreased Ind with total body dressing. 2. Decreased functional mobility needed for safe and Ind self cares. 3. Decreased UE strength and endurance needed for safe and Ind self cares. 4. Decreased Ind with showering.) Occupational Therapy Goals: 1. Pt will be Ind with total body dressing using modified techniques as needed. 2. Pt will be Ind with sit to stand from EOB, toilet and chair heights to allow Ind with self cares. 3. Pt will demonstrate improved UE function to allow Ind with total body dressing and showering. 4. Pt will be safe and Ind with total body showering. Prognosis: Good Occupational Therapy Plan: OT 2-4 days per week to address goals and problem list as above.
[2018-12-07] MEDS: CARAFATE 1 GM PO SCH (22:31)
[2018-12-07] MEDS: ZOCOR 80 MG PO SCH (22:31)
[2018-12-08] MEDS: HYDROCODONE/APAP 5/325MG TABLET PO PRN (02:53)
[2018-12-08] MEDS: ACETAMINOPHEN 500 MG TABLET PO SCH ×2 (06:17→17:31)
[2018-12-08] MEDS: IPRATROPIUM/ALBUTEROL (0.5MG/3MG) NEB INH SCH ×4 (09:54→22:18)
[2018-12-08] MEDS: BUDESONIDE 0.5 MG/2 ML INH SCH ×2 (09:54→22:18)
--- NOTE | 2018-12-08 11:18 | Physical Therapy Tx Note ---
Physical Therapy Tx Note - Treatment Note Tolerated: Fair Total Time Spent With Patient: 35 Physical Therapy Tx Note: Detail (When arrived to pt's room pt was recieiving a breathing tx, waited 5 min and returned to room. Pt was sitting in recliner and was alert and oriented x 3. Pt stated that she was up most of the night due to pain in her low back. Pt completed seated ther ex for ankle pumps x 20 ea, LAQ 5 " x 10 ea and standing ther ex at 4WW with CGA for marching x 10 ea, heel raises x 20, narrowed and tandem stance with bilateral and unilateral UE support for 60" ea, and sit to stand transfers from recliner to 4WW x 5 with CGA /min A, pt required frequent seated rest breaks due to fatigue and SOB. Pt ambulated 15 ft from recliner to toilet, assited pt with self care at toilet and sink. Pt required min A/mod A with sit to stand transfer from toilet to 4WW and from 4WW to sink. Pt ambulated 15' from bathroom sink to w/c with mod A from therapist and VCing for correction of retro lean. Transfered pt in w/c from pt's room to outpatient therapy gym for occupational therapy. Provided pt with MHP to pt's back for comfort.) Physical Therapy Problem List: Detail (1) Decreased bilateral LE strength 2) Assistance with transfers 3) Nonambulatory 4) Decreased balance 5) LE tremors) Physical Therapy Goals: 1) The patient will ambulate on levels with appropriate assistive device household distances with supervision for safety. 2) The patient will be CG/supervision with all transfers. 3) Increase LE strength 1/3 muscle grade to increase stability of gait. 4) The patient will ambulate on stairs with CG/minimal assist of 1 (previous functional level). Prognosis: Moderate Physical Therapy Plan: PT 1-2 times a day for gait training, transfer training, balance and LE strengthening exercises.
[2018-12-08] MEDS: MECLIZINE 25 MG TABLET PO SCH ×2 (11:54→22:17)
[2018-12-08] MEDS: ISOSORBIDE MONONITRATE 30 MG TAB.ER.24H PO SCH (11:55)
[2018-12-08] MEDS: DOCUSATE SODIUM 100 MG CAPSULE PO SCH (11:55)
[2018-12-08] MEDS: LOSARTAN POTASSIUM 100 MG TABLET PO SCH (11:55)
[2018-12-08] MEDS: ASPIRIN 81 MG TABEC PO SCH (11:55)
[2018-12-08] MEDS: CARVEDILOL 3.125 MG TABLET PO SCH ×2 (11:55→22:19)
[2018-12-08] MEDS: CHOLECALCIFEROL 1,000 UNIT TABLET PO SCH (11:55)
[2018-12-08] MEDS: HYDROCHLOROTHIAZIDE 25 MG TABLET PO SCH (11:55)
[2018-12-08] MEDS: CLOPIDOGREL 75MG TABLET PO SCH (11:55)
[2018-12-08] MEDS: POLYETHYLENE GLY 17 GM PACKET PO SCH (11:56)
[2018-12-08] MEDS: OMEPRAZOLE 40 MG PO SCH (11:57)
[2018-12-08] MEDS: PRESERVISION PO SCH ×2 (11:57→22:21)
[2018-12-08] MEDS: GABAPENTIN 400 MG PO SCH ×3 (11:57→22:21)
--- NOTE | 2018-12-08 12:40 | Occupational Therapy Tx Note ---
Occupational Therapy Tx Note - Treatment Note Tolerated: Fair Total Time Spent With Patient: 37 (1 TE 1 TA) Occupational Therapy Treatment Note: Detail (S: Pt just finished with PT who reports Pt with increased back pain this date and moist heat on back upon arrival. Pt frustrated with increased pain, decrease in fine motor skills since her last fall, and lack of functional independence. O: Pt completes bilat fine motor exercises (sponge 4-ways, rice dig, [place] poultry picking machine tender) for sensory re-ed, AROM , strengthening, stretching to increase fine motor control. Assess Pt's protective sensation: L (dominant): 1st, 2nd digits loss of protective sensation ; 3rd digit diminished protective; 4th, 5th digits diminished light touch. R hand: 1st - 3rd digits loss of protective sensation, 4th - 5th diminished protective. Educ. Pt on safety with hot and cold liquids, showers, surfaces, etc. Pt verbalizes understanding. Pt with increase in back pain throughout session. A: Pt's back pain decreases focus on all tasks, decreased fine motor coordination and strength limit grasp and pinch, which independence and efficiency with functional tasks such as self-feeding and opening containers. Decreased protective sensation put Pt at risk for banks and further injury - Pt reports understanding but focus and understanding appears limited d/t back pain. ) Occupational Therapy Problem List: Detail (1. Decreased Ind with total body dressing. 2. Decreased functional mobility needed for safe and Ind self cares. 3. Decreased UE strength and endurance needed for safe and Ind self cares. 4. Decreased Ind with showering.) Occupational Therapy Goals: 1. Pt will be Ind with total body dressing using modified techniques as needed. 2. Pt will be Ind with sit to stand from EOB, toilet and chair heights to allow Ind with self cares. 3. Pt will demonstrate improved UE function to allow Ind with total body dressing and showering. 4. Pt will be safe and Ind with total body showering. Prognosis: Moderate Occupational Therapy Plan: OT 2-4 days per week to address goals and problem list as above.
[2018-12-08] MEDS: ACETAMINOPHEN 500 MG TABLET PO PRN (15:10)
[2018-12-08] MEDS: CARAFATE 1 GM PO SCH (22:20)
[2018-12-08] MEDS: ZOCOR 80 MG PO SCH (22:22)
[2018-12-09] MEDS: ACETAMINOPHEN 500 MG TABLET PO PRN ×3 (05:07→22:02)
[2018-12-09] MEDS: MECLIZINE 25 MG TABLET PO SCH ×2 (09:42→22:02)
[2018-12-09] MEDS: LOSARTAN POTASSIUM 100 MG TABLET PO SCH (09:42)
[2018-12-09] MEDS: CARVEDILOL 3.125 MG TABLET PO SCH ×2 (09:42→22:04)
[2018-12-09] MEDS: DOCUSATE SODIUM 100 MG CAPSULE PO SCH (09:42)
[2018-12-09] MEDS: CHOLECALCIFEROL 1,000 UNIT TABLET PO SCH (09:42)
[2018-12-09] MEDS: HYDROCHLOROTHIAZIDE 25 MG TABLET PO SCH (09:43)
[2018-12-09] MEDS: CLOPIDOGREL 75MG TABLET PO SCH (09:43)
[2018-12-09] MEDS: ISOSORBIDE MONONITRATE 30 MG TAB.ER.24H PO SCH (09:44)
[2018-12-09] MEDS: BUDESONIDE 0.5 MG/2 ML INH SCH ×2 (09:48→21:34)
[2018-12-09] MEDS: IPRATROPIUM/ALBUTEROL (0.5MG/3MG) NEB INH SCH ×4 (09:48→21:34)
[2018-12-09 10:07] LABS: BASO % 0.3 % (0-6); EOS % 1.1 % (0-6); GRAN % 71.4 % (47-80); HEMATOCRIT 35.7 % (35.0-47.0); HEMOGLOBIN 11.6 gm/dl (11.6-16.0); LYMPH % 19.6 % (16-45); MEAN CELL VOLUME 81.5 fl (81-97); MEAN CORPUSCULAR HEMOGLOBIN 26.5 pg (27-33); MEAN CORPUSCULAR HGB CONC 32.5 g/dl (32-36); MEAN PLATELET VOLUME 8.3 fl (7.4-10.4); MONO % 7.6 % (0-9); PLATELET COUNT 338 K/uL (130-400); RED BLOOD COUNT 4.38 M/uL (3.80-5.40); RED CELL DISTRIBUTION WIDTH 14.8 % (11.5-14.5); WHITE BLOOD COUNT W/O DIFF 7.5 K/uL (4.2-12.2)
[2018-12-09 10:20] LABS: BLOOD UREA NITROGEN 16 mg/dL (8-23); CREATININE 0.6 mg/dL (0.5-0.9); EST GLOMERULAR FILTRATION RATE > 60 mL/min; GLUCOSE,RANDOM 126 mg/dL (74-109)
[2018-12-09] MEDS: ENOXAPARIN 40 MG/0.4 ML SYR SQ SCH (11:03)
[2018-12-09] MEDS: GABAPENTIN 400 MG PO SCH ×3 (11:05→22:05)
[2018-12-09] MEDS: POLYETHYLENE GLY 17 GM PACKET PO SCH (11:05)
[2018-12-09] MEDS: OMEPRAZOLE 40 MG PO SCH (11:05)
[2018-12-09] MEDS: PRESERVISION PO SCH ×2 (11:05→22:05)
--- NOTE | 2018-12-09 13:20 | Physical Therapy Tx Note ---
Physical Therapy Tx Note - Treatment Note Tolerated: Fair Total Time Spent With Patient: 25 Physical Therapy Tx Note: Detail (Patient was seated in chair upon JOB INTERVIEWER arrival. Patient states low back painful today. Patient transferred sit to and from stand CGA x1. Patient ambulated 150 feet with four wheeled walker. Patient attempted sit to stand x2 mod assist x1. Patient transferred sit to and from stand min assist x2. Patient transferred sit to and from stand CGA x1. Patient performed the following exercises seated in chair x10 reps each: heel raises, toe raises, LAQ, marching, hamstring curls with yellow theraband, glut squeezes, and hip abduction with red theraband. Patient reports back painful after ambulation. Patient displays decreased strength and endurance with hamstring curls. Patient was left seated in chair with call light within reach. ) Physical Therapy Problem List: Detail (1) Decreased bilateral LE strength 2) Assistance with transfers 3) Nonambulatory 4) Decreased balance 5) LE tremors) Physical Therapy Goals: 1) The patient will ambulate on levels with appropriate assistive device household distances with supervision for safety. 2) The patient will be CG/supervision with all transfers. 3) Increase LE strength 1/3 muscle grade to increase stability of gait. 4) The patient will ambulate on stairs with CG/minimal assist of 1 (previous functional level). Prognosis: Good Physical Therapy Plan: PT 1-2 times a day for gait training, transfer training, balance and LE strengthening exercises.
[2018-12-09] MEDS: ASPIRIN 81 MG TABEC PO SCH (13:32)
--- NOTE | 2018-12-09 14:47 | Occupational Therapy Tx Note ---
Occupational Therapy Tx Note - Treatment Note Total Time Spent With Patient: 46 (3 ADL) Occupational Therapy Treatment Note: Detail (S: Pt in chair waiting for OT for showering upon arrival. O: Fxl mobility bedside chair > shower bench with FWW and CGA. UB dress: setup assist overall; LB dress: MAX overall; UB bathe: setup assist; LB bathe: MIN overall. Pt doffed PJ top indep., doffs PJ bottom and briefs with CGA for standing pant mgmt, doffs briefs, socks and tennis shoes Indep. Setup assist for UB bathing, CGA and assist to wash buttocks in standing with bilat at GB d/t fatigue. Assist to thread feet in underwear, pants, socks, and shoes, Pt pulls to thigh level, assist to pull to waist level while Pt bilat support on GB for balance. Setup assist to don fasteners on shirt. Pt brushes hair while seated in bedside chair. OT educ. Pt on modified techs. and assessing fatigue level and need for rests throughout. A: Pt tolerates shower session well this date with 3 short rest breaks throughout. Increased safety with functional mobility - decreased ataxic mvmt, increased leg strength/ stability noted, however Pt still at increased risk for falls and will continue to require CGA for all fxl mobility and TFs.) Occupational Therapy Problem List: Detail (1. Decreased Ind with total body dressing. 2. Decreased functional mobility needed for safe and Ind self cares. 3. Decreased UE strength and endurance needed for safe and Ind self cares. 4. Decreased Ind with showering.) Occupational Therapy Goals: 1. Pt will be Ind with total body dressing using modified techniques as needed. 2. Pt will be Ind with sit to stand from EOB, toilet and chair heights to allow Ind with self cares. 3. Pt will demonstrate improved UE function to allow Ind with total body dressing and showering. 4. Pt will be safe and Ind with total body showering. Prognosis: Good Occupational Therapy Plan: OT 2-4 days per week to address goals and problem list as above.
[2018-12-09] MEDS: HYDROCODONE/APAP 5/325MG TABLET PO PRN (16:42)
[2018-12-09] MEDS: CARAFATE 1 GM PO SCH (22:04)
[2018-12-09] MEDS: ZOCOR 80 MG PO SCH (22:05)
[2018-12-10] MEDS: CYCLOBENZAPRINE 10MG TABLET PO PRN ×2 (00:27→22:00)
[2018-12-10] MEDS: HYDROCODONE/APAP 5/325MG TABLET PO PRN (04:21)
[2018-12-10] MEDS: ACETAMINOPHEN 500 MG TABLET PO PRN ×2 (07:41→16:04)
[2018-12-10] MEDS: BUDESONIDE 0.5 MG/2 ML INH SCH ×2 (09:13→23:27)
[2018-12-10] MEDS: IPRATROPIUM/ALBUTEROL (0.5MG/3MG) NEB INH SCH ×4 (09:13→23:26)
[2018-12-10] MEDS: MECLIZINE 25 MG TABLET PO SCH ×2 (09:56→21:59)
[2018-12-10] MEDS: DOCUSATE SODIUM 100 MG CAPSULE PO SCH (09:57)
[2018-12-10] MEDS: CLOPIDOGREL 75MG TABLET PO SCH (09:57)
[2018-12-10] MEDS: POLYETHYLENE GLY 17 GM PACKET PO SCH (09:57)
[2018-12-10] MEDS: CARVEDILOL 3.125 MG TABLET PO SCH ×2 (09:57→22:00)
[2018-12-10] MEDS: HYDROCHLOROTHIAZIDE 25 MG TABLET PO SCH (09:57)
[2018-12-10] MEDS: CHOLECALCIFEROL 1,000 UNIT TABLET PO SCH (09:57)
[2018-12-10] MEDS: ENOXAPARIN 40 MG/0.4 ML SYR SQ SCH (09:57)
[2018-12-10] MEDS: PRESERVISION PO SCH ×2 (09:58→21:59)
[2018-12-10] MEDS: GABAPENTIN 400 MG PO SCH ×3 (09:58→21:59)
[2018-12-10] MEDS: ISOSORBIDE MONONITRATE 30 MG TAB.ER.24H PO SCH (09:58)
[2018-12-10] MEDS: LOSARTAN POTASSIUM 100 MG TABLET PO SCH (09:58)
[2018-12-10] MEDS: ASPIRIN 81 MG TABEC PO SCH (09:58)
[2018-12-10] MEDS: OMEPRAZOLE 40 MG PO SCH (09:58)
--- NOTE | 2018-12-10 10:41 | Physical Therapy Tx Note ---
Physical Therapy Tx Note - Treatment Note Tolerated: Fair Total Time Spent With Patient: 20 Physical Therapy Tx Note: Detail (The patient had complaints last night of pain throughout back and LE's. The patient reported she did not get any sleep. The patient ambulated 75 feet x 1 with 4 wheeled walker with supervision for safety. The patient ambulated on one step, then 3 steps with CG of 2 with use of two railings. The patient became anxious when descending 3 stairs stating she was going to fall, however patient was steady. The patient was returned to room with a hot pack placed in lower back. The patient did well on stairs but was fearful of descending stairs. Ramp for home is recommended.) Physical Therapy Problem List: Detail (1) Decreased bilateral LE strength 2) Assistance with transfers 3) Nonambulatory 4) Decreased balance 5) LE tremors) Physical Therapy Goals: 1) The patient will ambulate on levels with appropriate assistive device household distances with supervision for safety. 2) The patient will be CG/supervision with all transfers. 3) Increase LE strength 1/3 muscle grade to increase stability of gait. 4) The patient will ambulate on stairs with CG/minimal assist of 1 (previous functional level). Physical Therapy Plan: PT 1-2 times a day for gait training, transfer training, balance and LE strengthening exercises.
--- NOTE | 2018-12-10 14:28 | Physical Therapy Tx Note ---
Physical Therapy Tx Note - Treatment Note Tolerated: Good Total Time Spent With Patient: 30 Physical Therapy Tx Note: Detail (Patient was seated in chair upon WINDOWS INFRASTRUCTURE ENGINEER arrival. Patient states no new complaints. Patient performed the following exercises seated in chair x10 reps each: marching, LAQ, hamstring curls with yellow theraband, hip abduction with yellow theraband, adductor squeezes, heel raises, toe raises, glut squeezes, and abdominal isometrics. Patient displays decreased strength and endurance with hamstring curls. Patient was left seated in chair with call light within reach.) Physical Therapy Problem List: Detail (1) Decreased bilateral LE strength 2) Assistance with transfers 3) Nonambulatory 4) Decreased balance 5) LE tremors) Physical Therapy Goals: 1) The patient will ambulate on levels with appropriate assistive device household distances with supervision for safety. 2) The patient will be CG/supervision with all transfers. 3) Increase LE strength 1/3 muscle grade to increase stability of gait. 4) The patient will ambulate on stairs with CG/minimal assist of 1 (previous functional level). Prognosis: Good Physical Therapy Plan: PT 1-2 times a day for gait training, transfer training, balance and LE strengthening exercises.
[2018-12-10] MEDS: TRAMADOL HCL 50 MG TABLET PO PRN (15:11)
[2018-12-10] MEDS: ZOCOR 80 MG PO SCH (21:58)
[2018-12-10] MEDS: CARAFATE 1 GM PO SCH (21:59)
[2018-12-11] MEDS: ACETAMINOPHEN 500 MG TABLET PO PRN ×3 (00:24→18:25)
[2018-12-11] MEDS: TRAMADOL HCL 50 MG TABLET PO PRN ×2 (01:59→12:22)
[2018-12-11] MEDS: IPRATROPIUM/ALBUTEROL (0.5MG/3MG) NEB INH SCH ×4 (09:17→21:59)
[2018-12-11] MEDS: BUDESONIDE 0.5 MG/2 ML INH SCH ×2 (09:17→21:59)
--- NOTE | 2018-12-11 10:25 | Physical Therapy Tx Note ---
Physical Therapy Tx Note - Treatment Note Tolerated: Good Total Time Spent With Patient: 20 Physical Therapy Tx Note: Detail (The patient had less complaints of pain this am and reports she slept well. The patient ambulated with 4 wheeled walker a distance of 70 feet x 1. The patient ambulated on 3 steps x 2, once with 2 railings, once with one railing with CG of 2. The patient became anxious when descending stairs with one railing and R knee buckled minimally however patient was able to descend stairs. Feel patient will be able to ascend stairs at home with assistance of family. Patient will be able to descend stairs as long as anxiety is controlled. A ramp continues to be recommended at home and family is working on this per community case manager.) Physical Therapy Problem List: Detail (1) Decreased bilateral LE strength 2) Assistance with transfers 3) Nonambulatory 4) Decreased balance 5) LE tremors) Physical Therapy Goals: 1) The patient will ambulate on levels with appropriate assistive device household distances with supervision for safety. 2) The patient will be CG/supervision with all transfers. 3) Increase LE strength 1/3 muscle grade to increase stability of gait. 4) The patient will ambulate on stairs with CG/minimal assist of 1 (previous functional level). Physical Therapy Plan: PT 1-2 times a day for gait training, transfer training, balance and LE strengthening exercises.
[2018-12-11] MEDS: ENOXAPARIN 40 MG/0.4 ML SYR SQ SCH (10:56)
[2018-12-11] MEDS: POLYETHYLENE GLY 17 GM PACKET PO SCH (10:56)
[2018-12-11] MEDS: LOSARTAN POTASSIUM 100 MG TABLET PO SCH (10:57)
[2018-12-11] MEDS: ASPIRIN 81 MG TABEC PO SCH (10:57)
[2018-12-11] MEDS: DOCUSATE SODIUM 100 MG CAPSULE PO SCH (10:57)
[2018-12-11] MEDS: CHOLECALCIFEROL 1,000 UNIT TABLET PO SCH (10:57)
[2018-12-11] MEDS: HYDROCHLOROTHIAZIDE 25 MG TABLET PO SCH (10:57)
[2018-12-11] MEDS: ISOSORBIDE MONONITRATE 30 MG TAB.ER.24H PO SCH (10:57)
[2018-12-11] MEDS: CLOPIDOGREL 75MG TABLET PO SCH (10:58)
[2018-12-11] MEDS: MECLIZINE 25 MG TABLET PO SCH ×2 (10:58→22:18)
[2018-12-11] MEDS: OMEPRAZOLE 40 MG PO SCH (10:58)
[2018-12-11] MEDS: CARVEDILOL 3.125 MG TABLET PO SCH ×2 (10:58→22:20)
[2018-12-11] MEDS: GABAPENTIN 400 MG PO SCH ×3 (10:58→22:18)
[2018-12-11] MEDS: PRESERVISION PO SCH ×2 (10:59→22:18)
--- NOTE | 2018-12-11 11:28 | Physician Progress Note ---
Subjective - Date Date of Progress Note: 12/11/18 - Admitting Diagnosis Diagnosis: deconditioning due to lumbar compression fracture and hyponatremia. hyponatremia - Subjective Events since last encounter: patient had some back and leg pains which nursing said the leg pain was new and when I talked to her today her legs and back felt good and she slept well last night. She is looking forward to going home tomorrow. Nursing informed me her sodium was down and she is drinking bulion to keep her sodium up. Nursing Care Plan Problem List Activity Intolerance (Swing Bed) Start: 11/29/18 13: 48 Freq: Status: Active Protocol: Created 11/29/18 13:48 SAF (Rec: 11/29/18 13:48 SAF [id number]) Altered Thought Process (Fall Risk) Start: 11/29/18 14: 04 Freq: Status: Active Protocol: Created 11/29/18 14:04 SAF (Rec: 11/29/18 14:04 SAF [id number]) Impaired Mobility (Fall Risk) Start: 11/29/18 14: 04 Freq: Status: Active Protocol: Created 11/29/18 14:04 SAF (Rec: 11/29/18 14:04 SAF [id number]) Knowledge Deficit (Swing Bed) Start: 11/29/18 13: 48 Freq: Status: Active Protocol: Created 11/29/18 13:48 SAF (Rec: 11/29/18 13:48 SAF [id number]) Pain (Swing Bed) Start: 11/29/18 13: 48 Freq: Status: Active Protocol: Created 11/29/18 13:48 SAF (Rec: 11/29/18 13:48 SAF [id number]) Risk for Injury (Fall Risk) Start: 11/29/18 14: 04 Freq: Status: Active Protocol: Created 11/29/18 14:04 SAF (Rec: 11/29/18 14:04 SAF [id number]) General - Cognitive Patterns Speech: Normal Thought Process: Intact Thought Content: Normal - Communication Select best description of speech pattern: Clear Speech Ability to express ideas and wants: Understood Understanding verbal content: Understands - Mood and Behavior Patterns Appearance: Well Groomed Mood: Anxious Attitude: Cooperative Motor Activity: Hyperactive Affect: Appropriate, Anxious Hallucinations: Denies - Physical Functioning Activity Level: Up with assist x1 Turning: Self ad jean pierre ROM Ability: Within Normal Limits Assistive Devices: 2 Wheel Walker Ambulation Ability: Needs Assist Bed Mobility: Independent Transfer Ability: Needs Assist Bathing Ability: Independent Personal Hygiene: Independent Dressing Ability: Needs Assist Eating (Feeding) Ability: Independent Toileting Ability: Independent Administer Own Medication: Needs Assist - Continence Bowel Pattern: Normal for Patient Bladder Pattern: Normal Urinary Incontinence: Stress Meds/Allergies - Allergies Allergies Allergy/AdvReac Type Severity Reaction Status Date / Time codeine AdvReac ALTERED Unverified 11/04/18 17:22 MENTAL STATUS - Active Medications Current Medications Acetaminophen (Tylenol 500mg Tab) 1,000 mg PO Q8HR PRN PRN Reason: PAIN - MILD TO MODERATE (1-7) Last Admin: 12/11/18 10:56 Dose: 1,000 mg Hydrocodone Bitart/Acetaminophen (Walsh 5mg/325mg) 1 each PO Q8H PRN PRN Reason: PAIN - MILD TO MODERATE (1-7) Last Admin: 12/10/18 04:21 Dose: 1 each Hydrocodone Bitart/Acetaminophen (Walsh 5mg/325mg) 2 each PO Q8H PRN PRN Reason: PAIN - SEVERE (8-10) Last Admin: 12/01/18 23:07 Dose: 2 each Albuterol/Ipratropium (Duoneb) 3 ml INH QID [facility] Last Admin: 12/11/18 09:17 Dose: 3 ml Aspirin (Ecotrin (Ec)) 81 mg PO DAILY [facility] Last Admin: 12/11/18 10:57 Dose: 81 mg Budesonide (Pulmicort) 0.5 mg INH 1000,2200 [facility] Last Admin: 12/11/18 09:17 Dose: 0.5 mg Carvedilol (Coreg) 3.125 mg PO BID [facility] Last Admin: 12/11/18 10:58 Dose: 3.125 mg Clopidogrel Bisulfate (Plavix) 75 mg PO DAILY [facility] Last Admin: 12/11/18 10:58 Dose: 75 mg Cyclobenzaprine HCl (Flexeril) 5 mg PO QHS PRN PRN Reason: MUSCLE SPASM Last Admin: 12/10/18 22:00 Dose: 5 mg Docusate Sodium (Colace) 100 mg PO DAILY [facility] Last Admin: 12/11/18 10:57 Dose: 100 mg Enoxaparin Sodium (Lovenox) 40 mg SQ DAILY [facility] Last Admin: 12/11/18 10:56 Dose: 40 mg Hydrochlorothiazide (Hctz 25mg) 25 mg PO DAILY [facility] Last Admin: 12/11/18 10:57 Dose: 25 mg Isosorbide Mononitrate (Imdur) 30 mg PO DAILY [facility] Last Admin: 12/11/18 10:57 Dose: 30 mg Losartan Potassium (Losartan Potassium) 100 mg PO DAILY [facility] Last Admin: 12/11/18 10:57 Dose: 100 mg Magnesium Hydroxide (Milk Of Magnesium) 30 ml PO DAILY PRN PRN Reason: INDIGESTION Last Admin: 12/07/18 08:35 Dose: 30 ml Meclizine HCl (Antivert) 12.5 mg PO BID [facility] Last Admin: 12/11/18 10:58 Dose: 12.5 mg Patient Own Med: Gabapentin 400mg Capsule 800 each PO TID [facility] Last Admin: 12/11/18 10:58 Dose: 800 each Patient Own Med: Omeprazole 40mg Capsule 40 each PO DAILY [facility] Last Admin: 12/11/18 10:58 Dose: 40 each Patient Own Med: Zocor 80mg ( Simvastatin) 80 each PO QHS [facility] Last Admin: 12/10/18 21:58 Dose: 80 each Patient Own Med: Carafate 1 Gm ( Sucralafate) 1 each PO QHS [facility] Last Admin: 12/10/18 21:59 Dose: 1 each Patient Own Med: (Preservision Capsule) 1 each PO BID [facility] Last Admin: 12/11/18 10:59 Dose: 1 each Polyethylene Glycol (Miralax) 17 gm PO DAILY [facility] Last Admin: 12/11/18 10:56 Dose: 17 gm Tramadol HCl (Ultram) 50 mg PO Q12H PRN PRN Reason: PAIN - MODERATE (5-7) Last Admin: 12/11/18 01:59 Dose: 50 mg Vitamin D (Vitamin D3) 2,000 unit PO DAILY [facility] Last Admin: 12/11/18 10:57 Dose: 2,000 unit Zinc Oxide (Desitin) 10 gm TOP ASDIR PRN PRN Reason: RASH Objective - Vital Signs Vital Signs: Vital Signs - Last 24 Hrs Temp Pulse Pulse Resp BP BP BP 12/11/18 09:17 94 H 20 12/11/18 08:00 97.9 F 74 18 125/45 12/10/18 20:00 97.5 F L 91 H 20 116/75 12/10/18 17:25 96 H 22 12/10/18 13:13 100 H 24 12/10/18 13:11 92 H 24 12/10/18 13:09 98.9 F 154/65 Pulse Ox 12/11/18 09:17 92 L 12/11/18 08:00 98 12/10/18 20:00 94 L 12/10/18 17:25 12/10/18 13:13 94 L 12/10/18 13:11 94 L 12/10/18 13:09 - General General Appearance: Alert, Oriented x3, Cooperative, No acute distress - Head Head exam: Normal inspection - Eye Eye exam: Normal appearance, PERRL Pupils: Normal accommodation - ENT ENT exam: Normal exam, Mucous membranes moist, Normal external ear exam, Normal orophraynx, TM's normal bilaterally Ear exam: Normal external inspection. negative: External canal tenderness Nasal Exam: Normal inspection. negative: Discharge, Sinus tenderness Mouth exam: Normal external inspection, Tongue normal Teeth exam: Normal inspection. negative: Dental caries Throat exam: Normal inspection. negative: Tonsillar erythema, Tonsillar exudate - Neck Neck exam: Normal inspection, Full ROM. negative: Tenderness - Respiratory Respiratory exam: Normal lung sounds bilaterally. negative: Respiratory distress - Cardiovascular Cardiovascular Exam: Regular rate, Normal rhythm, Normal heart sounds Peripheral Pulses: 2+: Dorsalis Pedis (R), Dorsalis Pedis (L) - GI/Abdominal GI/Abdominal exam: Soft, Normal bowel sounds. negative: Tenderness - Rectal Rectal exam: Deferred - exam: Deferred - Extremities Extremities exam: Normal inspection, Full ROM, Normal capillary refill. negative: Tenderness - Back Back exam: Reports: Tenderness - Neurological Neurological exam: Alert, Oriented X3, Reflexes normal - Skin Skin exam: Dry, Intact, Normal color, Warm H&P Results - Labs Result Diagrams: 12/09/18 10:03 12/09/18 10:03 Discharge Potential - Discharge Needs Community Services Used Prior to Admission: Occupational Therapy, Physical Therapy Patient Discharge Plan Description: Return Home Community Services Needed at Discharge: Home Delivered Meals, Occupational Therapy, Physical Therapy Discharge Needs Comment: Current with Residential [facility] Plan - Swing Bed Certification Initial Certification Due: 11/29/18 14 Day Re-Cert Due: 12/13/18 44 Day Re-Cert Due: 01/12/19 74 Day Re-Cert Due: 02/11/19 - Detailed Diagnosis and Plan (1) DVT prophylaxis Current Visit: Yes Status: Acute Base Code: [id number] - Comment: 12/02/18: -Continue home plavix 75mg daily and ASA 81mg daily (2) Hyponatremia Current Visit: Yes Status: Acute Base Code: E87.1 - HYPO-OSMOLALITY AND HYPONATREMIA Comment: 12/02/18: - Chronic, last sodium 132 12/01/18, Potassium 4.6 - Repeat sodium 12/04/18, pt. continues to drink sodium broth - Chief Design Drafter onboard for sodium and protein rich foods 12/11/2018 Informed about her sodium of 124 and advised to drink more sodium in the form of bullion and will recheck her sodium today . Medication review and will stop the HCTZ and her sodium will come up. (3) Lumbar compression fracture Current Visit: Yes Status: Acute Qualifiers: Encounter type: initial encounter Lumbar vertebra fracture level: L4 Qualified Code(s): S32.040A - Wedge compression fracture of fourth lumbar vertebra, initial encounter for closed fracture Base Code: S32.000A - WEDGE COMPRESSION FRACTURE OF UNSP LUMBAR VERTEBRA, INIT Comment: 12/02/18: -New mild L4 compression fracture -Sleepiness on current Walsh dose, will decrease Walsh 5/325 to 1-2 Q8hr PRN and Tylenol 650mg Q 8 hr scheduled - Flexeril 5mg QHS PRN -PT/OT (4) Physical deconditioning Current Visit: Yes Status: Acute Base Code: R53.81 - OTHER MALAISE Comment : 12/02/18: -acute L4 fracture and lumbar DDD -PT/OT m-f (5) Weakness Current Visit: No Status: Acute Base Code: R53.1 - WEAKNESS Comment: : -Likely secondary to deconditioning, acute L4 fracture, and hyponatremia -PT/OT
[2018-12-11 12:31] LABS: BLOOD UREA NITROGEN 17 mg/dL (8-23); CREATININE 0.5 mg/dL (0.5-0.9); EST GLOMERULAR FILTRATION RATE > 60 mL/min
[2018-12-11 12:34] LABS: GLUCOSE,RANDOM 105 mg/dL (74-109)
--- NOTE | 2018-12-11 13:33 | Occupational Therapy Tx Note ---
Occupational Therapy Tx Note - Treatment Note Tolerated: Good Total Time Spent With Patient: 35 (ther ex) Occupational Therapy Treatment Note: Detail (S: Pt seen in OT gym area, reports she is ready to go home. O: Passive pulleys for jesse shoulder flexion, abduction and scapular squeezes x 7 minutes. Jesse scapular squeezes with weighted pulleys @5# each arm x 10 reps and tricep pushes with 5# each UE x 10 reps. Jesse repetitive pinch and shoulder height reaching activity with resisted clothespins x 20 reps each arm to tolerance. Pt fatigues easily and reports shoulder discomfort. She displays significant impairment with jesse hand coordination which pt reports is longstanding. Pt returned to room and Indly transferred from wheelchair to recliner. A: Decreased shoulder strength and motion as well as impaired coordination continue.) Occupational Therapy Problem List: Detail (1. Decreased Ind with total body dressing. 2. Decreased functional mobility needed for safe and Ind self cares. 3. Decreased UE strength and endurance needed for safe and Ind self cares. 4. Decreased Ind with showering.) Occupational Therapy Goals: 1. Pt will be Ind with total body dressing using modified techniques as needed. 2. Pt will be Ind with sit to stand from EOB, toilet and chair heights to allow Ind with self cares. 3. Pt will demonstrate improved UE function to allow Ind with total body dressing and showering. 4. Pt will be safe and Ind with total body showering. Prognosis: Good Occupational Therapy Plan: OT 2-4 days per week to address goals and problem list as above.
[2018-12-11] MEDS: HYDROCODONE/APAP 5/325MG TABLET PO PRN ×2 (13:37→22:20)
[2018-12-11] MEDS ORDERED: DOCUSATE SODIUM 100 MG CAPSULE PO PRN (21:28)
[2018-12-11] MEDS: ZOCOR 80 MG PO SCH (22:18)
[2018-12-11] MEDS: CARAFATE 1 GM PO SCH (22:18)
[2018-12-11] MEDS: CYCLOBENZAPRINE 10MG TABLET PO PRN (22:20)
[2018-12-12] MEDS: TRAMADOL HCL 50 MG TABLET PO PRN (07:54)
[2018-12-12] MEDS: IPRATROPIUM/ALBUTEROL (0.5MG/3MG) NEB INH SCH (09:25)
[2018-12-12] MEDS: BUDESONIDE 0.5 MG/2 ML INH SCH (09:26)
[2018-12-12 09:32] LABS: BLOOD UREA NITROGEN 19 mg/dL (8-23); CREATININE 0.6 mg/dL (0.5-0.9); EST GLOMERULAR FILTRATION RATE > 60 mL/min; GLUCOSE,RANDOM 135 mg/dL (74-109)
[2018-12-12] MEDS: DOCUSATE SODIUM 100 MG CAPSULE PO SCH (10:14)
[2018-12-12] MEDS: ENOXAPARIN 40 MG/0.4 ML SYR SQ SCH (10:14)
[2018-12-12] MEDS: MECLIZINE 25 MG TABLET PO SCH (10:15)
[2018-12-12] MEDS: LOSARTAN POTASSIUM 100 MG TABLET PO SCH (10:15)
[2018-12-12] MEDS: CHOLECALCIFEROL 1,000 UNIT TABLET PO SCH (10:15)
[2018-12-12] MEDS: ISOSORBIDE MONONITRATE 30 MG TAB.ER.24H PO SCH (10:15)
[2018-12-12] MEDS: ASPIRIN 81 MG TABEC PO SCH (10:15)
[2018-12-12] MEDS: CLOPIDOGREL 75MG TABLET PO SCH (10:15)
[2018-12-12] MEDS: CARVEDILOL 3.125 MG TABLET PO SCH (10:16)
[2018-12-12] MEDS: POLYETHYLENE GLY 17 GM PACKET PO SCH (10:16)
[2018-12-12] MEDS: OMEPRAZOLE 40 MG PO SCH (10:20)
[2018-12-12] MEDS: GABAPENTIN 400 MG PO SCH (10:20)
[2018-12-12] MEDS: PRESERVISION PO SCH (10:22)
--- NOTE | 2018-12-12 11:11 | Discharge Summary ---
Providers Discharge Summary Date: 12/12/18 Date of admission: 11/29/18 12:14 Expected Date of Discharge: 12/12/18 Attending physician: Bo Tee Primary care physician: Selma Phillips N.P. Physical Exam - Vital Signs Vital Signs: Vital Signs - Last 24 Hrs Temp Pulse Pulse Resp BP BP Pulse Ox 12/12/18 09:27 98 H 18 97 12/12/18 08:00 98.1 F 98 H 18 129/54 96 12/11/18 22:03 89 14 90 L 12/11/18 20:00 97.9 F 89 20 110/57 93 L 12/11/18 18:13 88 20 12/11/18 13:49 90 20 - General General Appearance: Alert, Oriented x3, Cooperative, No acute distress - Head Head exam: Normal inspection - Eye Eye exam: Normal appearance, PERRL Pupils: Normal accommodation - ENT ENT exam: Normal exam, Mucous membranes moist, Normal external ear exam, Normal orophraynx, TM's normal bilaterally Ear exam: Normal external inspection. negative: External canal tenderness Nasal Exam: Normal inspection. negative: Discharge, Sinus tenderness Mouth exam: Normal external inspection, Tongue normal Teeth exam: Normal inspection. negative: Dental caries Throat exam: Normal inspection. negative: Tonsillar erythema, Tonsillar exudate - Neck Neck exam: Normal inspection, Full ROM. negative: Tenderness - Respiratory Respiratory exam: Normal lung sounds bilaterally. negative: Respiratory distress - Cardiovascular Cardiovascular Exam: Regular rate, Normal rhythm, Normal heart sounds Peripheral Pulses: 2+: Dorsalis Pedis (R), Dorsalis Pedis (L) - GI/Abdominal GI/Abdominal exam: Soft, Normal bowel sounds. negative: Tenderness - Rectal Rectal exam: Deferred - exam: Deferred - Extremities Extremities exam: Normal inspection, Full ROM, Normal capillary refill. negative: Tenderness - Back Back exam: Reports: Tenderness (lumbar back area ) - Neurological Neurological exam: Alert, Oriented X3, Reflexes normal - Skin Skin exam: Dry, Intact, Normal color, Warm Hospitalization - Hospitalization Admission Diagnosis: deconditioning due to lumbar compression fracture and hyponatremia. hyponatremia - Problem List (1) DVT prophylaxis Current Visit: Yes Status: Acute Base Code: [id number] - Comment: 12/02/18: -Continue home plavix 75mg daily and ASA 81mg daily (2) Hyponatremia Current Visit: Yes Status: Acute Base Code: E87.1 - HYPO-OSMOLALITY AND HYPONATREMIA Comment: 12/02/18: - Chronic, last sodium 132 12/01/18, Potassium 4.6 - Repeat sodium 12/04/18, pt. continues to drink sodium broth - [employer] onboard for sodium and protein rich foods 12/11/2018 Informed about her sodium of 124 and advised to drink more sodium in the form of bullion and will recheck her sodium today . Medication review and will stop the HCTZ and her sodium will come up. (3) Lumbar compression fracture Current Visit: Yes Status: Acute Discharge Diagnosis: Encounter type: initial encounter Lumbar vertebra fracture level: L4 Base Code: S32.000A - WEDGE COMPRESSION FRACTURE OF UNSP LUMBAR VERTEBRA, INIT Comment: 12/02/18: -New mild L4 compression fracture -Sleepiness on current Linn dose, will decrease Linn 5/325 to 1-2 Q8hr PRN and Tylenol 650mg Q 8 hr scheduled - Flexeril 5mg QHS PRN -PT/OT (4) Physical deconditioning Current Visit: Yes Status: Acute Base Code: R53.81 - OTHER MALAISE Comment : 12/02/18: -acute L4 fracture and lumbar DDD -PT/OT m-f (5) Weakness Current Visit: No Status: Acute Base Code: R53.1 - WEAKNESS Comment: : -Likely secondary to deconditioning, acute L4 fracture, and hyponatremia -PT/OT - Disposition patient going home - Hospitalization Course Disposition: Home, Self-Care Reason For Discharge/Transfer: Medical Stability Hospital Course: patient gradually got stronger and requiring less pain medication and she states the tylenol 1000mg is helping her pain. Will give her a small script of norco if she has break through pain. Her sodium is chronically low and she eats salty foods and I stopped her HCTZ and that is reducing her sodium. Her BP is good and no extra edema on her legs and if her BP goes will need a different medication because of the hyponatremia will order another BMP for next as an outpatient. She didn't want to take calcium pills because of her eyes and I advised to drink more milk and eat white things. ie cottage cheese ,yogurt Abnormal Labs: Abnormal Lab Results 12/01/18 12/04/18 12/09/18 Range/Units 06:20 06:15 10:03 MCH 26.5 L (27-33) pg RDW 14.8 H (11.5-14.5) % Sodium 132 L 132 L (136-145) mmol/L Potassium 4.6 H (3.4-4.5) mmol/L Chloride 94 L 93 L (98-107) mmol/L Carbon Dioxide 30.0 H 31.0 H (22-29) mmol/L BUN 25 H (8-23) mg/dL Creatinine 0.4 L (0.5-0.9) mg/dL Random Glucose (74-109) mg/dL Albumin 3.4 L (4.0-5.0) g/dL 12/09/18 12/11/18 12/12/18 Range/Units 10:03 12:12 09:07 MCH (27-33) pg RDW (11.5-14.5) % Sodium 123 L 124 L 124 L (136-145) mmol/L Potassium 4.8 H 5.1 H (3.4-4.5) mmol/L Chloride 88 L 89 L 89 L (98-107) mmol/L Carbon Dioxide (22-29) mmol/L BUN (8-23) mg/dL Creatinine (0.5-0.9) mg/dL Random Glucose 126 H 135 H (74-109) mg/dL Albumin (4.0-5.0) g/dL Condition at Discharge: (1) Good Discharge Medications - Discharge Medications Prescriptions: Docusate Sodium [Colace] 100 mg PO DAILY #30 cap Hydrocodone/APAP 5/325Mg [Linn 5Mg/325Mg] 1 each PO Q8H PRN #9 tab PRN Reason: Pain - Mild To Moderate (1-7) Home Medications: Ambulatory Orders Aspirin [Adult Aspirin] 81 mg PO DAILY 08/03/18 [Last Taken Unknown] Carvedilol [Coreg] 3.125 mg PO BID 08/03/18 [Last Taken Unknown] Clopidogrel Bisulfate [Plavix] 75 mg PO DAILY 08/03/18 [Last Taken Unknown] Isosorbide Mononitrate [Imdur] 30 mg PO DAILY 08/03/18 [Last Taken Unknown] Losartan Potassium [Cozaar] 100 mg PO DAILY 08/03/18 [Last Taken Unknown] Meclizine HCl [Antivert] 12.5 mg PO BID #20 tab 08/03/18 [Last Taken Unknown] Omeprazole 40 mg PO DAILY 08/03/18 [Last Taken Unknown] Sucralfate [Carafate] 1 gm PO QHS 08/03/18 [Last Taken Unknown] Acetaminophen [Tylenol 500Mg Tab] 1,000 mg PO Q6H PRN tablet 10/05/18 [Last Taken Unknown] Budesonide [Pulmicort] 0.5 mg INH RESP.BID #2 box 10/05/18 [Last Taken Unknown] Ipratropium/Albuterol [Duoneb] 3 ml INH RESP.Q4H.WA #2 box 10/05/18 [Last Taken Unknown] Gabapentin 800 mg PO TID #180 cap 11/04/18 [Last Taken Unknown] Acetaminophen [Tylenol 500Mg Tab] 1,000 mg PO Q8HR PRN tablet 12/12/18 [Last Taken Unknown] Aspirin Enteric-Coated [Ecotrin (EC)] 81 mg PO DAILY tabec 12/12/18 [Last Taken Unknown] Budesonide [Pulmicort] 0.5 mg INH 1000,2200 ml 12/12/18 [Last Taken Unknown] Docusate Sodium [Colace] 100 mg PO DAILY #30 cap 12/12/18 [Last Taken Unknown] Hydrocodone/APAP 5/325Mg [Linn 5Mg/325Mg] 1 each PO Q8H PRN #9 tab 12/12/18 [ Last Taken Unknown] Zinc Oxide [Desitin] 10 gm TOP ASDIR PRN tube 12/12/18 [Last Taken Unknown] Discharge Plan - Discharge Instructions Activity at Discharge: Increase Activity as Tolerated Diet at Discharge: Regular Diet Additional Instructions: Follow up with Selma Phillips at scheduled appt on December 23 at 1:40PM [facility] will see you at home. They can be reached at [phone] Quality Measures - Quality Measures Quality Measures: Advance Directives, Documentation of Current Medications in Medical Record, Elder Maltreatment Screen and Follow-Up Plan, Screening for High Blood Pressure and F/U Documented - Current Medications Quality Measure: Measure #130: Documentation of Current Medications Documentation of Current Medications: <Current Medications Documented/Reviewed> [G8427] - Blood Pressure Screening Quality Measure: Screening for High Blood Pressure and Follow-Up Documented Does Patient Have Any of the Following: Active Dx of HTN Blood Pressure Classification: Hypertensive Reading Systolic Measurement: 154 Diastolic Measurement: 65 Screening for High Blood Pressure: Patient Exclusion, Hx of HTN [G9744] - Advance Directives Quality Measure: Measure #47: Care Plan Advance Directives Established: No Advance Directives Information Provided To Patient: Declined Advance Directives on File: No Living Will: No Power of Business Development Manager: Yes Power of Business Development Manager Name: SHARMIN MONDRAGON Advance Care Planning: <Care Plan/Decision Maker Documented; Discussed & Documented> [[id number]] - Elder Abuse Suspicion Index Screening: Elder Abuse Suspicion Index Screening Rely on people for bathing, dressing, shopping, banking, etc: No Prevented from getting food, clothes, medication, etc: No Made to feel shamed or threatened by someone: No Forced to sign papers or use money against will: No Feel afraid, touched in ways not wanted or hurt physically: No Poor eye contact, withdrawn, malnourished, cuts or bruises: No Screening Result: Negative result EASI Reference Information: Micah STEIN, Felicia C, Arik D, Donya Spivey.Development and validation of a tool to assist physicians identification of elder abuse: The Elder Abuse Suspicion Index (EASI ). Journal of Elder Abuse and Neglect, 2008; 20 (3): 276-300. - Elder Maltreatment Screen Quality Measures: Elder Maltreatment Screen and Follow-Up Plan Elder Maltreatment Screen: <Negative, No Follow-Up Plan Required> [G8734]
[2018-12-12] MEDS: ACETAMINOPHEN 500 MG TABLET PO PRN (14:11)
--- NOTE | 2018-12-14 07:22 | Rehab Discharge Summary ---
Patient Information - Patient Information Diagnosis: Deconditioning s/p L4 compression fracture Ordered Treatment: OT Evaluate and Treat Surgery: No History: Detail (Pt fell at home sustaining a lumbar compression fracture.) Past Medical/Surgical Hx: PAST MEDICAL/SURGICAL HISTORY Past Surgical History cardiac stent femoral stents chest (15 yrs old from tb) PMH - Respiratory Hx Respiratory Disorders Yes Hx Bronchitis Yes Hx Chronic Obstructive Yes: no official dx Pulmonary Disease (COPD) Hx Dyspnea Yes Hx Tuberculosis Yes PMH - Cardiovascular Hx Cardiovascular Disorders Yes Hx Abnormal EKG Yes Hx Cardiac Catheterization Yes Hx Heart Attack Yes Hx Hypertension Yes PMH - Neuro Hx Neurological Disorders No Hx Dizziness Yes: occasional Hx Neuropathy Yes PMH - GI Hx Gastrointestinal Disorders No Hx Gastroesophageal Reflux Yes PMH - Hx Genitourinary Disorders No PMH - Endocrine Hx Endocrine Disorders No Hx Diabetes Yes PMH - Musculoskeletal Hx Musculoskeletal Disorders No Hx Arthritis Yes Hx Back Injury Yes: fx hx PMH - Psych Hx Psychiatric Problems No PMH - Hematology/Oncology Hx Hematology/Oncology No Disorders Premorbid Status: Detail (The patient prior to fall was ambulatory with her 4 wheeled walker and was independent with dressing and toileting. The patient had assistance with showering from daughter and son-in-law/daughter asssisted with meals and all snailer. The patient received meals on wheels.) Social History: Detail (The patient lives in a mobile home with 6 steps with one railing with daughter and son-in -law living next door. The bathroom has the folllowing: tub shower combination with extended shower chair with a suction grab bar, standard height toilet with a grab bar in front. The patient has a 4 wheeled walker.) Precautions: [place], Fall Subjective Information - Subjective Information Per Patient Objective Data - Pain Pain Present: Yes (back pain after increased activity) - Mental Status Patient Orientation: Oriented x3 - Visual Perception Deficit (Pt has macular degeneration although she reports her vision is functional) - ROM Not within normal limits (Jesse shoulder flexion limited (unchanged from initial evaluation), jesse elbow and hand AROM functional.) - Strength/Tone Not within normal limits (Jesse shoulder flexion 3-/5, ejsse elbow flexion and extension 4/5, jesse lift mechanic 4/5. UE endurance has significantly improved for self care activities.) - Coordination Deficit (Pt demonstrates improved coordination from initial evaluation although deficits continue) - Bed Mobility Independent - Transfers Independent (Ind with sit to stand from recliner, wheelchair and shower seat although at times she requires assist if very fatigued.) - Balance Balance Sitting: Good Balance Standing: Fair - Sensation Intact - Gait Detail (Pt ambulating household distances with 4 wheeled walker Indly.) - ADL's/IADL's Detail (Pt able to demonstrate showering in sitting and standing with supervision/set up, she is Ind with total body dressing, grooming/hygiene tasks. She does fatigue quickly although she demonstrates less shortness of breath.) Therapy Assessment - Therapy Assessment Detail (Pt demonstrates improved endurance during functional activities, increased Ind with self cares and functional mobility.) Problem List - Problem List Physical Therapy Problem List: Detail (1) Decreased bilateral LE strength 2) Assistance with transfers 3) Nonambulatory 4) Decreased balance 5) LE tremors) Occupational Therapy Problem List: Detail (1. Decreased Ind with total body dressing. 2. Decreased functional mobility needed for safe and Ind self cares. 3. Decreased UE strength and endurance needed for safe and Ind self cares. 4. Decreased Ind with showering.) Goals - Goals Physical Therapy Goals: 1) The patient will ambulate on levels with appropriate assistive device household distances with supervision for safety. 2) The patient will be CG/supervision with all transfers. 3) Increase LE strength 1/3 muscle grade to increase stability of gait. 4) The patient will ambulate on stairs with CG/minimal assist of 1 (previous functional level). Occupational Therapy Goals: Goals Met: 1. Pt will be Ind with total body dressing using modified techniques as needed. 2. Pt will be Ind with sit to stand from EOB, toilet and chair heights to allow Ind with self cares. 3. Pt will demonstrate improved UE function to allow Ind with total body dressing and showering. 4. Pt will be safe and Ind with total body showering. Prognosis - Prognosis Good Plan - Plan Physical Therapy Plan: PT 1-2 times a day for gait training, transfer training, balance and LE strengthening exercises. Occupational Therapy Plan: Pt discharged home with home OT and PT.
--- NOTE | 2018-12-14 08:39 | Rehab Discharge Summary ---
Patient Information - Patient Information Diagnosis: Deconditioning s/p L4 compression fracture Ordered Treatment: OT Evaluate and Treat Surgery: No History: Detail (Pt fell at home sustaining a lumbar compression fracture.) Past Medical/Surgical Hx: PAST MEDICAL/SURGICAL HISTORY Past Surgical History cardiac stent femoral stents chest (15 yrs old from tb) PMH - Respiratory Hx Respiratory Disorders Yes Hx Bronchitis Yes Hx Chronic Obstructive Yes: no official dx Pulmonary Disease (COPD) Hx Dyspnea Yes Hx Tuberculosis Yes PMH - Cardiovascular Hx Cardiovascular Disorders Yes Hx Abnormal EKG Yes Hx Cardiac Catheterization Yes Hx Heart Attack Yes Hx Hypertension Yes PMH - Neuro Hx Neurological Disorders No Hx Dizziness Yes: occasional Hx Neuropathy Yes PMH - GI Hx Gastrointestinal Disorders No Hx Gastroesophageal Reflux Yes PMH - Hx Genitourinary Disorders No PMH - Endocrine Hx Endocrine Disorders No Hx Diabetes Yes PMH - Musculoskeletal Hx Musculoskeletal Disorders No Hx Arthritis Yes Hx Back Injury Yes: fx hx PMH - Psych Hx Psychiatric Problems No PMH - Hematology/Oncology Hx Hematology/Oncology No Disorders Premorbid Status: Detail (The patient prior to fall was ambulatory with her 4 wheeled walker and was independent with dressing and toileting. The patient had assistance with showering from daughter and son-in-law/daughter asssisted with meals and all technical sourcing recruiter. The patient received meals on wheels.) Social History: Detail (The patient lives in a mobile home with 6 steps with one railing with daughter and son-in -law living next door. The bathroom has the folllowing: tub shower combination with extended shower chair with a suction grab bar, standard height toilet with a grab bar in front. The patient has a 4 wheeled walker.) Precautions: [place], Fall Subjective Information - Subjective Information Per Patient (The patient had varying complaints of lower back pain. The patient is anxious ie: walking and stair climbing.) Objective Data - Mental Status Patient Orientation: Oriented x3 - Visual Perception Appears within normal limits for therapeutic activities - ROM Within normal limits (The patient's LE AROM is WNL) - Strength/Tone Not within normal limits (The patient's LE strength is hip musculature 4- to 4/5 , knee musculature 4/5, ankle dorsiflexors 3/5, Plantar flexors 4-/5.) - Bed Mobility Independent (The paient was independent with supine to sit with HOB raised.) - Transfers Independent (The patient is independent with sit to and from stand transfer.) - Balance Balance Sitting: Good Balance Standing: Fair (The patient scored 19/28 on the Tinetti Assessment Tool which is in th moderate risk for falling category.) - Gait Detail (The patient ambulated with 4 wheeled walker a distance of 100 feet plus independently/supervision, supervision due to occasional R LE spasms. The patient ambulated on stairs with CG of 1 SBA of 1 with use of 2 railings and one railing.) Therapy Assessment - Therapy Assessment Detail (The patient exhibited improved functional mobility and increased LE strength. The patient's family was to obtain a ramp. The patient is to receive Home PT.) Patient Education - Patient Education Teaching Topic: Exercise/Activity (The patient was independent with LE HEP.) Response: Return Demonstration Teaching Method: Demonstration, Handout Teaching Recipient: Patient Barriers To Learning: Age Related Problem List - Problem List Physical Therapy Problem List: Detail (1) Decreased bilateral LE strength 2) Assistance with transfers 3) Nonambulatory 4) Decreased balance 5) LE tremors) Occupational Therapy Problem List: Detail (1. Decreased Ind with total body dressing. 2. Decreased functional mobility needed for safe and Ind self cares. 3. Decreased UE strength and endurance needed for safe and Ind self cares. 4. Decreased Ind with showering.) Goals - Goals Physical Therapy Goals: 1) The patient will ambulate on levels with appropriate assistive device household distances with supervision for safety.(Goal Met). 2 ) The patient will be CG/supervision with all transfers(Goal Met). 3) Increase LE strength 1/3 muscle grade to increase stability of gait (Goal partially met) . 4) The patient will ambulate on stairs with CG/minimal assist of 1 (previous functional level). (Goal Met) Occupational Therapy Goals: Goals Met: 1. Pt will be Ind with total body dressing using modified techniques as needed. 2. Pt will be Ind with sit to stand from EOB, toilet and chair heights to allow Ind with self cares. 3. Pt will demonstrate improved UE function to allow Ind with total body dressing and showering. 4. Pt will be safe and Ind with total body showering. Plan - Plan Physical Therapy Plan: The patient was discharged to home and is to receive Home PT and OT. Occupational Therapy Plan: Pt discharged home with home OT and PT.
== END 2018-12-12 14:16 | disposition home or self-care (01) | DRG 552 ==
LOC: MEDSURG 12:14
PROVIDERS: ADMIT Internal Medicine; ATTEND Emergency Medicine
DX: S32.049A Unspecified fracture of fourth lumbar vertebra, initial encounter for closed fracture (principal); E87.1 Hypo-osmolality and hyponatremia; Z66 Do not resuscitate; I10 Essential (primary) hypertension; I25.2 Old myocardial infarction
CPT/HCPCS: 80048; 80053; 85025; 90732; 94640; 94760; 94761; 97110; 97116; 97530; 97535; 99306; 99308; 99309; 99316; J1650

== ENCOUNTER 2019-01-20 13:51 | Emergency (ER) | payer MEDICARE, OTHER ==
--- NOTE | 2019-01-20 14:40 | Emergency Department Record ---
History of Present Illness - General Chief complaint: Pain Stated complaint: ABNORMAL VITAL SIGNS Time Seen by Provider: 01/20/19 14:37 Source: Patient, RN notes reviewed - History of Present Illness Initial comments: patient is complaining of her butock pain and visiting nurses ana alva was suppose to change her dressing and the visiting nurse was concerned about her vitals and called the EMS and patient now upset EMS called she just wanted ointment placed on her buttock ulcers. Onset/Timin -: Minutes(s) Location: Other Severity scale (1-10): 3 Consistency: Constant Improves with: Nothing Worsens with: Nothing Associated Symptoms: Denies other symptoms - Related Data Previous Rx's Medication Instructions Recorded Meclizine HCl [Antivert] 12.5 mg PO BID #20 tab 08/03/18 Budesonide [Pulmicort] 0.5 mg INH RESP.BID #2 box 10/05/18 Ipratropium/Albuterol [Duoneb] 3 ml INH RESP.Q4H.WA #2 box 10/05/18 Acetaminophen [Tylenol 500Mg Tab] 1,000 mg PO Q8HR PRN tablet 12/12/18 Aspirin Enteric-Coated [Ecotrin 81 mg PO DAILY tabec 12/12/18 (EC)] Budesonide [Pulmicort] 0.5 mg INH 1000,2200 ml 12/12/18 Docusate Sodium [Colace] 100 mg PO DAILY #30 cap 12/12/18 Hydrocodone/APAP 5/325Mg [[place] 1 each PO Q8H PRN #9 tab 12/12/18 5Mg/325Mg] Zinc Oxide [Desitin] 10 gm TOP ASDIR PRN tube 12/12/18 Mupirocin [Bactroban] 1 applic TOP BID #22 gm 01/20/19 Allergies Allergy/AdvReac Type Severity Reaction Status Date / Time codeine AdvReac ALTERED Verified 01/20/19 14:00 MENTAL STATUS Travel Screening - Travel/Exposure Within Last 30 Days Have you traveled within the last 30 days?: No - Travel/Exposure Within Last Year Have you traveled outside the [place] in the last year?: No - Additonal Travel Details Have you been exposed to anyone with a communicable illness?: No - Travel Symptoms Symptom Screening: None Review of Systems Reviewed: No additional complaints except as noted below Constitutional: Reports: As per HPI. Denies: Chills, Fever, Malaise, Night sweats, Weakness, Weight change Eyes: Reports: As per HPI. Denies: Eye discharge, Eye pain, Photophobia, Vision change ENT: Reports: As per HPI. Denies: Congestion, Dental pain, Ear pain, Epistaxis, Hearing loss, Throat pain Respiratory: Reports: As per HPI. Denies: Cough, Dyspnea, Hemoptysis, Stridor, Wheezes Cardiovascular: Reports: As per HPI. Denies: Arrhythmia, Chest pain, Dyspnea on exertion, Edema, Murmurs, Orthopnea, Palpitations, Paroxysmal nocturnal dyspnea, Rheumatic Fever, Syncope Endocrine: Reports: As per HPI. Denies: Fatigue, Heat or cold intolerance, Polydipsia, Polyuria Gastrointestinal: Reports: As per HPI. Denies: Abdominal pain, Constipation, Diarrhea, Hematemesis, Hematochezia, Melena, Nausea, Vomiting Genitourinary: Reports: As per HPI. Denies: Abnormal menses, Discharge, Dyspareunia, Dysuria, Frequency, Hematuria, Incontinence, Retention, Urgency Musculoskeletal: Reports: As per HPI. Denies: Arthralgia, Back pain, Gout, Joint swelling, Myalgia, Neck pain Skin: Reports: As per HPI, Other (ulcer left buttoc size of a silver dollar). Denies: Bruising, Change in color, Change in hair/nails, Lesions, Pruritus, Rash Neurological: Reports: As per HPI. Denies: Abnormal gait, Confusion, Headache, Numbness, Paresthesias, Seizure, Tingling, Tremors, Vertigo, Weakness Psychiatric: Reports: As per HPI. Denies: Anxiety, Auditory hallucinations, Dep ression, Homicidal thoughts, Suicidal thoughts, Visual hallucinations Hematological/Lymphatic: Reports: As per HPI. Denies: Anemia, Blood Clots, Easy bleeding, Easy bruising, Swollen glands Past Medical History - SOCIAL HISTORY Smoking Status: Never smoker Alcohol Use: None Drug Use: None - RESPIRATORY Hx Respiratory Disorders: Yes Hx Tuberculosis: Yes - CARDIOVASCULAR Hx Cardio Disorders: Yes Hx Abnormal EKG: Yes Hx Heart Attack: Yes Hx Hypertension: Yes - NEURO Hx Neuro Disorders: Yes Hx Dizziness: Yes (occasional) Hx Neuropathy: Yes - GI Hx GI Disorders: No Hx Reflux: Yes - Hx Genitourinary Disorders: No - ENDOCRINE Hx Endocrine Disorders: Yes Hx Diabetes: Yes - MUSCULOSKELETAL Hx Musculoskeletal Disorders: Yes Hx Arthritis: Yes Hx Back Injury: Yes (fx hx) - PSYCH Hx Psych Problems: No - HEMATOLOGY/ONCOLOGY Hx Hematology/Oncology Disorders: Yes Hx Blood Transfusions: Yes (@age 15?) Family Medical History Any Significant Family History?: Yes Hx Alcohol Use: Father Hx Dementia: Mother Hx Diabetes: Brother/Sister Hx HTN: Brother/Sister Hx Stroke: Father Physical Exam - General General Appearance: Alert, Oriented x3, Cooperative, No acute distress - Head Head exam: Normal inspection - Eye Eye exam: Normal appearance, PERRL Pupils: Normal accommodation - ENT ENT exam: Normal exam, Mucous membranes moist, Normal external ear exam, Normal orophraynx, TM's normal bilaterally Ear exam: Normal external inspection. negative: External canal tenderness Nasal Exam: Normal inspection. negative: Discharge, Sinus tenderness Mouth exam: Normal external inspection, Tongue normal Teeth exam: Normal inspection. negative: Dental caries Throat exam: Normal inspection. negative: Tonsillar erythema, Tonsillar exudate - Neck Neck exam: Normal inspection, Full ROM. negative: Tenderness - Respiratory Respiratory exam: Normal lung sounds bilaterally. negative: Respiratory distress - Cardiovascular Cardiovascular Exam: Regular rate, Normal rhythm, Normal heart sounds - GI/Abdominal GI/Abdominal exam: Soft, Normal bowel sounds. negative: Tenderness - Rectal Rectal exam: Deferred - exam: Deferred - Extremities Extremities exam: Normal inspection, Full ROM, Normal capillary refill. negative: Tenderness - Back Back exam: Reports: Normal inspection, Full ROM. Denies: Muscle spasm, Rash noted, Tenderness - Neurological Neurological exam: Alert, Normal gait, Oriented X3, Reflexes normal - Psychiatric Psychiatric exam: Normal affect, Normal mood - Skin Skin exam: Dry, Other (ulcer size of a silver dollar left buttock) Course Vital Signs 01/20/19 14:03 Temperature 98.3 F Pulse Rate 106 H Respiratory 20 Rate Blood Pressure 191/92 Pulse Ox 95 Medical Decision Making - Lab Data Result diagrams: 01/20/19 15:04 01/20/19 15:04 Disposition Clinical Impression: Decubitus skin ulcer Qualifiers: Pressure injury location: buttock Pressure injury stage: stage 2 Laterality: left Qualified Code(s): L89.322 - Pressure ulcer of left buttock, stage 2 Disposition: Home, Self-Care Condition: (1) Good Additional Instructions: use bactroban ointment twice a day to her buttock area and use desitin PRN. Prescriptions: Mupirocin [Bactroban] 1 applic TOP BID #22 gm Forms: Patient Portal Access Time of Disposition: 15:02 Quality - Quality Measures Quality Measures: N/A - Blood Pressure Screening Does Patient Have Any of the Following: No Blood Pressure Classification: Hypertensive Reading Systolic Measurement: 191 Diastolic Measurement: 92 Screening for High Blood Pressure: < Pre-Hypertensive BP, F/U Documented > [G8950] Pre-Hypertensive Follow-up Interventions: Referral to alternative/primary care provider.
[2019-01-20] MEDS ORDERED: ZINC OXIDE 28.35 GM TUBE TOP ONE (14:52)
[2019-01-20] MEDS ORDERED: AL HYDROX/MAG HYDROX 30ML UD PO ONE (15:10)
[2019-01-20 15:13] LABS: ABSOLUTE NEUTROPHIL COUNT 8.34; BASO % 0.3 % (0-6); EOS % 2.3 % (0-6); GRAN % 72.8 % (47-80); HEMATOCRIT 39.4 % (35.0-47.0); HEMOGLOBIN 12.3 gm/dl (11.6-16.0); LYMPH % 18.7 % (16-45); MEAN CELL VOLUME 82.9 fl (81-97); MEAN CORPUSCULAR HEMOGLOBIN 25.9 pg (27-33); MEAN CORPUSCULAR HGB CONC 31.2 g/dl (32-36); MEAN PLATELET VOLUME 9.5 fl (7.4-10.4); MONO % 5.9 % (0-9); PLATELET COUNT 271 K/uL (130-400); RED BLOOD COUNT 4.75 M/uL (3.80-5.40); RED CELL DISTRIBUTION WIDTH 15.6 % (11.5-14.5); WHITE BLOOD COUNT W/O DIFF 11.5 K/uL (4.2-12.2)
[2019-01-20 15:22] LABS: BLOOD UREA NITROGEN 12 mg/dL (8-23); CREATININE 0.7 mg/dL (0.5-0.9); EST GLOMERULAR FILTRATION RATE > 60 mL/min
[2019-01-20 15:25] LABS: GLUCOSE,RANDOM 101 mg/dL (74-109)
== END 2019-01-20 16:03 | disposition home or self-care (01) ==
LOC: ER 13:51
DX: L89.322 Pressure ulcer of left buttock, stage 2 (principal); I10 Essential (primary) hypertension; I25.2 Old myocardial infarction
CPT/HCPCS: 80048; 85025; 99283; 99284

== ENCOUNTER 2019-02-15 10:35 | Emergency (ER) | payer MEDICARE, OTHER ==
--- NOTE | 2019-02-15 10:53 | Emergency Department Record ---
History of Present Illness - General Chief Complaint: Confusion Stated Complaint: CONFUSION Time Seen by Provider: 02/15/19 10:40 Source: Patient, Family Mode of Arrival: Wheelchair Limitations: No limitations - History of Present Illness Initial Comments: 84 yo female presents not acting normally now for the third day. She has been confused, not remembering names, odd behavior such as did not put on her pants on one morning, not putting home items in the correct places, answers some questions, not able to finish a sentence, not able to name objects at times, not able to explain a full thought, not able to find the correct word. When she does speak the words seem appropriate to context. She is oriented to her full name only. Otherwise, she is not oriented to place or time. She could not recall her son in law's name. She is eating and drinking. She ambulates still with a walker. No new inability to walk, no new weakness on one side or the other. When she does talk her words are clear with baseline speech. She denies pain or discomfort. Former smoker. No history of CVA. Visit nurse sees the patient for bed sores for about 2 months that are improving. She has had a rash on the left buttocks 2 weeks that itches with scabs. Daughter confirms last completely normal Friday night at dinner. Examples during interview: What is your name? Immediately said "eVnus Guevara" Where were your born? Struggled to find word then stated "I can't get the word out" Seemed frustrated. Name this object? It was a pen, watch, glasses. She would say "it's a...it's a...Oh come on it's a..." but unable to identify. When I told her its a watch she said "well, of course it is." MD Complaint: Confusion -: Days(s) (3) Severity: Moderate Consistency: Constant Context: Other (Home nurse noted the changes and recommended evaluation) Associated Symptoms: Denies other symptoms - [place] Coma Scale Eye Response: (4) Open spontaneously Motor Response: (6) Obeys commands Verbal Response: (4) Confused conversation Bahman Total: 14 - Related Data Previous Rx's Medication Instructions Recorded Budesonide [Pulmicort] 0.5 mg INH RESP.BID #2 box 10/05/18 Ipratropium/Albuterol [Duoneb] 3 ml INH RESP.Q4H.WA #2 box 10/05/18 Allergies Allergy/AdvReac Type Severity Reaction Status Date / Time codeine AdvReac ALTERED Verified 01/20/19 14:00 MENTAL STATUS Review of Systems Constitutional: Denies: Chills, Fever, Malaise, Weakness Eyes: Denies: Eye discharge, Eye pain, Photophobia, Vision change ENT: Denies: Congestion, Throat pain Respiratory: Reports: Cough. Denies: Dyspnea, Hemoptysis, Stridor, Wheezes Cardiovascular: Denies: Chest pain, Palpitations, Syncope Endocrine: Denies: Fatigue, Polydipsia, Polyuria Gastrointestinal: Denies: Abdominal pain, Diarrhea, Nausea, Vomiting Genitourinary: Denies: Dysuria, Urgency Musculoskeletal: Denies: Arthralgia, Back pain, Myalgia Skin: Denies: Bruising, Change in color, Rash Neurological: Reports: Confusion. Denies: Abnormal gait, Headache, Seizure, Weakness Psychiatric: Denies: Anxiety Hematological/Lymphatic: Denies: Easy bleeding, Easy bruising Past Medical History - SOCIAL HISTORY Smoking Status: Never smoker Drug Use: None - RESPIRATORY Hx Respiratory Disorders: Yes Hx Tuberculosis: Yes - CARDIOVASCULAR Hx Cardio Disorders: Yes Hx Abnormal EKG: Yes Hx Heart Attack: Yes Hx Hypertension: Yes - NEURO Hx Neuro Disorders: Yes Hx Dizziness: Yes (occasional) Hx Neuropathy: Yes - GI Hx GI Disorders: No Hx Reflux: Yes - Hx Genitourinary Disorders: No - ENDOCRINE Hx Endocrine Disorders: Yes Hx Diabetes: Yes - MUSCULOSKELETAL Hx Musculoskeletal Disorders: Yes Hx Arthritis: Yes Hx Back Injury: Yes (fx hx) - PSYCH Hx Psych Problems: No - HEMATOLOGY/ONCOLOGY Hx Hematology/Oncology Disorders: Yes Hx Blood Transfusions: Yes (@age 15?) Family Medical History Hx Alcohol Use: Father Hx Dementia: Mother Hx Diabetes: Brother/Sister Hx HTN: Brother/Sister Hx Stroke: Father Physical Exam - General General Appearance: Alert, Cooperative, No acute distress, Other (Pleasant, smiles, oriented only to her name) Limitations: Other - Head Head exam: Atraumatic, Normocephalic, Normal inspection Head exam detail: negative: Abrasion, Contusion, Hematoma - Eye Eye exam: Normal appearance, PERRL. negative: Conjunctival injection, Scleral icterus - ENT ENT exam: Normal exam, Mucous membranes moist, Normal orophraynx Ear exam: Normal external inspection Nasal Exam: Normal inspection Mouth exam: Normal external inspection - Neck Neck exam: Normal inspection - Respiratory Respiratory exam: Rhonchi. negative: Normal lung sounds bilaterally, Accessory muscle use, Prolonged expiratory, Stridor, Wheezes - Cardiovascular Cardiovascular Exam: Regular rate, Normal rhythm, Normal heart sounds Peripheral Pulses: 2+: Radial (R), Radial (L) - GI/Abdominal GI/Abdominal exam: Soft. negative: Tenderness - Rectal Rectal exam: Deferred - exam: Deferred - Extremities Extremities exam: Normal inspection. negative: Tenderness Image of Full Body: 1 - mild erythema, no ulcer 2 - patches of dried scabs, no erythema, do not wrap around - Back Back exam: Reports: Rash noted. Denies: CVA tenderness (R), CVA tenderness (L) - Neurological Neurological exam: Alert, Altered, CN II-XII intact, Other (No PND, mild tremor with tracking but able, Frequently not able to find the correct word with questions). negative: Motor sensory deficit, Oriented X3 - Psychiatric Psychiatric exam: Other (Giggles). negative: Agitated, Anxious - Skin Skin exam: Dry, Intact, Normal color, Warm Stroke Assessment - NIH Stroke Scale 1a. Level of Consciousness: (0) Alert 1b. LOC Questions: (1) Answers 1 Question Correctly 1c. LOC Commands: (0) Performs Tasks Correctly 2. Best Gaze: (0) Normal 3. Visual: (0) No Visual Loss 4. Facial Palsy: (0) Normal Symmetrical Movement 5a. Motor Arm Left: (0) No Drift 5b. Motor Arm Right: (0) No Drift 6a. Motor Leg Left: (0) No Drift 6b. Motor Leg Right: (0) No Drift 7. Limb Ataxia: (0) Absent 8. Sensory: (0) Normal 9. Best Language: (1) Mild/Moderate Aphasia 10. Dysarthria: (1) Mild/Moderate Dysarthria 11. Extinction/Inattention: (1) Visual/Tactile Inattention NIH Stoke Scale Total: 4 Course - Reevaluation(s) Reevaluation #1: 02/15/19 11:16 The CBC is normal The UA is normal 02/15/19 11:25 CMP reviewed Na 131 HCO3 21 AG 17 Otherwise normal CMP TSH is 1.74 02/15/19 11:48 The CXR is negative for acute changes. 02/15/19 11:48 02/15/19 11:50 The HCT was reviewed. Atrophy, Ventriculomegaly, scattered white matter disease. No changes from the prior. 02/15/19 12:42 The results were discussed with the family. Further work up likely indicated [facility] was contacted. I SW Dr Enriquez and Dr Hayes of the ED The patient is accepted for further work up at [facility] in the ED 02/15/19 18:03 Medical Decision Making - Lab Data Result diagrams: 02/15/19 11:00 02/15/19 11:00 Disposition Disposition: Transfer Clinical Impression: Confusion, Expressive aphasia, Dehydration Disposition: Acute Care Hospital Transfer Transfer To: [facility] ED Reason For Transfer: Confusion, Difficulty with speech Accepting Physician: Freddy Enriquez Time Discussed w/Accepting Physician: 12:46 Condition: (2) Stable Forms: Patient Portal Access Time of Disposition: 12:49 Quality - Quality Measures Quality Measures: N/A - Blood Pressure Screening Does Patient Have Any of the Following: Active Dx of HTN Blood Pressure Classification: Hypertensive Reading Systolic Measurement: 203 Diastolic Measurement: 90 Screening for High Blood Pressure: Patient Exclusion, Hx of HTN [G9744]
[2019-02-15 11:09] LABS: ABSOLUTE NEUTROPHIL COUNT 6.63; BASO % 0.1 % (0-6); EOS % 0.1 % (0-6); GRAN % 72.2 % (47-80); HEMATOCRIT 37.7 % (35.0-47.0); HEMOGLOBIN 12.3 gm/dl (11.6-16.0); LYMPH % 21.5 % (16-45); MEAN CELL VOLUME 78.2 fl (81-97); MEAN CORPUSCULAR HEMOGLOBIN 25.5 pg (27-33); MEAN CORPUSCULAR HGB CONC 32.6 g/dl (32-36); MEAN PLATELET VOLUME 8.9 fl (7.4-10.4); MONO % 6.1 % (0-9); PLATELET COUNT 298 K/uL (130-400); RED BLOOD COUNT 4.82 M/uL (3.80-5.40); RED CELL DISTRIBUTION WIDTH 15.9 % (11.5-14.5); URINE APPEARANCE CLEAR; URINE BILIRUBIN NEGATIVE (NEGATIVE); URINE BLOOD NEGATIVE (NEGATIVE); URINE COLOR YELLOW; URINE GLUCOSE (UA) NEGATIVE (NEGATIVE); URINE KETONE TRACE (NEGATIVE); URINE LEUKOCYTE ESTERASE NEGATIVE (NEGATIVE); URINE NITRITE NEGATIVE (NEGATIVE); URINE PROTEIN TRACE (NEGATIVE); URINE UROBILINOGEN 0.2 E.U./dL (0.20 - 1.00); WHITE BLOOD COUNT W/O DIFF 9.2 K/uL (4.2-12.2)
[2019-02-15 11:18] LABS: BLOOD UREA NITROGEN 10 mg/dL (8-23); CREATININE 0.4 mg/dL (0.5-0.9); EST GLOMERULAR FILTRATION RATE > 60 mL/min
[2019-02-15 11:19] LABS: TOTAL PROTEIN 7.5 g/dL (6.6-8.7)
[2019-02-15 11:21] LABS: GLUCOSE,RANDOM 106 mg/dL (74-109)
[2019-02-15 11:23] LABS: ALT/SGPT 13 U/L (<33); AST/SGOT 23 U/L (10.0-35.0)
[2019-02-15 11:24] LABS: ALB/GLOB RATIO 1.3 (1.1-1.8); ALBUMIN 4.2 g/dL (4.0-5.0); ALKALINE PHOSPHATASE 96 U/L (35-104)
[2019-02-15] MEDS ORDERED: 0.9 % SODIUM CHLORIDE 1000ML 1,000 ML IV ONE (11:24)
[2019-02-15 11:34] LABS: THYROID STIMULATING HORMONE 1.74 uIU/mL (0.270-4.20)
[2019-02-15] MEDS ORDERED: ASPIRIN 81 MG CHEWABLE TABLET PO ONE (12:45)
--- NOTE | 2019-02-17 08:29 | RADIOLOGY REPORT ---
EXAM: CHEST, TWO VIEWS HISTORY: COUGH. NEW ONSET CONFUSION FOR TWO DAYS. TECHNIQUE: Upright AP and lateral views of the chest were obtained. Comparison: Two view chest radiographic examination dated 10/14/18. FINDINGS: The heart is not enlarged. No definite pulmonary venous hypertension. Calcified granulomata are scattered in each lung most pronounced in the apices where there is also chronic pleural and parenchymal scarring. No definite new lung consolidation, costophrenic angle blunting or pneumothorax. The thoracic aorta remains tortuous and atherosclerotic. A coronary artery stent is again noted in place likely in the left anterior descending artery. There are degenerative changes scattered throughout the visualized spine and shoulder girdles. Chronic rotator cuff tears are suspected. IMPRESSION: 1. NO DEFINITE RADIOGRAPHIC EVIDENCE OF AN ACUTE INTRATHORACIC PROCESS GIVEN DIFFERENCES IN TECHNIQUE. 2. HEALED GRANULOMATOUS DISEASE REDEMONSTRATED. BIAPICAL PLEURAL AND PARENCHYMAL SCARRING. 3. THE PREVIOUSLY DEMONSTRATED RIGHT COSTOPHRENIC ANGLE BLUNTING HAS CLEARED. 4. PROBABLE BILATERAL CHRONIC ROTATOR CUFF TEARS. JOB NUMBER: [id number] MTDD
--- NOTE | 2019-02-17 08:36 | CT SCAN REPORT ---
EXAM: CT OF THE BRAIN WITHOUT CONTRAST HISTORY: SUDDEN ONSET OF CONFUSION. TECHNIQUE: Routine noncontrast CT of the brain was obtained. Comparison: CT of the brain without contrast dated 08/03/18. FINDINGS: Moderate dilatation of the subarachnoid spaces is redemonstrated associated with ventriculomegaly. The degree of ventriculomegaly does not appear grossly changed in the interval. Periventricular and subcortical white matter lucencies are again noted in each cerebral hemisphere. These do not appear grossly changed in the interval given differences in technique. No new suspicious area of abnormally increased or decreased attenuation is noted throughout the brain substance. No new abnormal extraaxial fluid collection. No acute skull abnormality. Post cataract surgery changes are noted bilaterally. There is opacification of a few inferior mastoid air cells bilaterally, stable consistent with nonspecific chronic mild effusions. The paranasal sinuses are clear. IMPRESSION: 1. GENERALIZED ATROPHY WITH VENTRICULOMEGALY REDEMONSTRATED, NOT SIGNIFICANTLY CHANGED SINCE 08/03/18. 2. MILD WHITE MATTER LUCENCIES SCATTERED IN EACH CEREBRAL HEMISPHERE ARE ALSO NOT SIGNIFICANTLY CHANGED GIVEN DIFFERENCES IN TECHNIQUE. THEY ARE LIKELY THE RESULT OF CHRONIC MICROVASCULAR ISCHEMIA. 3. OPACIFICATION OF A FEW INFERIOR MASTOID AIR CELLS BILATERALLY, STABLE. JOB NUMBER: [id number] MTDD
== END 2019-02-15 13:28 | disposition short-term general hospital (02) ==
LOC: ER 10:35
DX: R41.0 Disorientation, unspecified (principal); E86.0 Dehydration; R47.01 Aphasia; I10 Essential (primary) hypertension; R21 Rash and other nonspecific skin eruption; Z87.891 Personal history of nicotine dependence
CPT/HCPCS: 70450; 71046; 80053; 81003; 84443; 85025; 96360; 99285; J7030

== ENCOUNTER 2019-02-24 16:32 | Inpatient (IN) | payer MEDICARE, OTHER ==
--- NOTE | 2019-03-02 16:52 | Rehab Evaluation ---
Patient Information - Patient Information Diagnosis: Deconditioning d/t recent sepsis, encelphalopathy Ordered Treatment: PT Evaluate and Treat Status: Initial Evaluation Past Medical/Surgical Hx: PAST MEDICAL/SURGICAL HISTORY Past Surgical History cardiac stent femoral stents chest (15 yrs old from tb) PMH - Respiratory Hx Respiratory Disorders Yes Hx Bronchitis Yes Hx Chronic Obstructive Yes: no official dx Pulmonary Disease (COPD) Hx Dyspnea Yes Hx Tuberculosis Yes PMH - Cardiovascular Hx Cardiovascular Disorders Yes Hx Abnormal EKG Yes Hx Cardiac Catheterization Yes Hx Heart Attack Yes Hx Hypertension Yes PMH - Neuro Hx Neurological Disorders Yes Hx Dizziness Yes: occasional Hx Neuropathy Yes PMH - GI Hx Gastrointestinal Disorders No Hx Gastroesophageal Reflux Yes PMH - Hx Genitourinary Disorders No PMH - Endocrine Hx Endocrine Disorders Yes Hx Diabetes Yes PMH - Musculoskeletal Hx Musculoskeletal Disorders Yes Hx Arthritis Yes Hx Back Injury Yes: fx hx PMH - Psych Hx Psychiatric Problems No PMH - Hematology/Oncology Hx Hematology/Oncology Yes Disorders Premorbid Status: Detail (Patient was ambulatory at home with 4 wheeled walker and was independent with toileting and dressing. The patient did have assistance with showering from daughter and son-in-law and daughter assisted with meals and all correspondence review clerk.) Social History: Detail (The patient lives in a mobile home with a ramp at the enterance. Daughter and son-in-law live next door. The bathroom is equipped with the following: tub shower combination with extended editor & co founder chair with a suction grab bar, standard height toilet with a grab bar in front. The patient has a 4 wheeled walker.) Precautions: [place], Fall - Time With Patient Total Time Spent With Patient (Min): 30 Treatment Procedures: Detail (Initial Evaluation, low complexity.) Subjective Information - Subjective Information Per Patient (The patient had no complaints of pain. The patient did complain of overall weakness.) Objective Data - Mental Status Patient Orientation: Oriented x3 - Visual Perception Deficit (Macular degeneration.) - ROM Within normal limits (LE AROM was WNL.) - Strength/Tone Not within normal limits ( LE strength: hip flexors bilaterally 3+/5, bilateral hip adductors and extensors 4-/5, hip abductors 4/5, knee extensors bilaterally 4+/5 and hamstrings 4/5, bilateral dorsiflexors 2+/5 and plantar flexors 4-/5.) - Transfers Independent (Independent/supervision with sit to and from stand from recliner.) - Balance Balance Sitting: Good Balance Standing: Fair (The patient's standing balnce was fair (she required support of walker).) - Sensation Deficit (Sensation was deferred, however patient has bilateral LE neuropathy per her report.) - Gait Detail (The patient ambulated with front wheeled walker with 3 L of O2 with CG of 1 a distance of 35 feet x 1 with minimal shortness of breath.) Therapy Assessment - Therapy Assessment Detail (Patient exhibits decreased LE strength and standing balance , requires CG for ambulation for safety and decreased ability to complete prolonged physical activity. Feel the patient is a good rehab candidate to return to previous functional level.) Problem List - Problem List Physical Therapy Problem List: Detail (1) Decreased LE strength 2) Assistance with ambulation (CG) 3) Decreased standing balance 4) Decreaed ability to complete prolonged physical activity) Goals - Goals Physical Therapy Goals: 1) Assess bed mobility. 2) Assess Balance using Objective Balance scale. 3) Increase LE strength 1/3 muscle grade to increase LE strength. 4) The patient will be independent with bed mobility and transfers. 5) The patient will ambulate independently with 4 wheeled walker household distances. 6) The patient will tolerate 30 minutes of physical activity with one rest period. Prognosis - Prognosis Good (Good for return to home.) Plan - Plan Physical Therapy Plan: PT 1-2 times a day M-F for gait training, transfer training, balance and LE strengthening exercises.
[2019-03-02] MEDS: IPRATROPIUM/ALBUTEROL (0.5MG/3MG) NEB INH SCH ×2 (17:09→20:38)
[2019-03-02] MEDS: PRESERVISION PO SCH (17:49)
[2019-03-02] MEDS: PANTOPRAZOLE SODIUM 40 MG TABLET PO SCH (17:49)
[2019-03-02] MEDS: SUCRALFATE 1 G/10 ML UD PO SCH ×2 (17:49→21:38)
[2019-03-02] MEDS: CARVEDILOL 3.125 MG TABLET PO SCH ×2 (19:30→21:35)
[2019-03-02] MEDS: CEPHALEXIN 500 MG CAPSULE PO SCH (21:38)
[2019-03-02] MEDS: SIMVASTATIN 20 MG TABLET PO SCH (21:38)
[2019-03-02] MEDS: GABAPENTIN 300 MG CAPSULE PO SCH (21:38)
[2019-03-03] MEDS: IPRATROPIUM/ALBUTEROL (0.5MG/3MG) NEB INH SCH ×4 (05:41→20:41)
[2019-03-03] MEDS: PANTOPRAZOLE SODIUM 40 MG TABLET PO SCH ×2 (08:00→17:51)
[2019-03-03] MEDS: PRESERVISION PO SCH ×2 (08:00→17:51)
--- NOTE | 2019-03-03 09:45 | Physical Therapy Tx Note ---
Physical Therapy Tx Note - Treatment Note Tolerated: Good Total Time Spent With Patient: 30 Physical Therapy Tx Note: Detail (The patient was up in chair when PT arrived and stated she didn't sleep well last night. The patient had some complaints of coccyx region pain but did not rate pain using 0-10 pain scale. The patient's balance was tested using the Tinetti Assessment Tool. The patient scored 12/28 which is in the high risk for falling category. The patient ambulated to the bathroom with use of 4 wheeled walker(7.5 feet x 2 ) with CG of 1 for safety and 2 L of O2 (the patient's O2 sat. level remained 94). The patient required supervision for toilet transfer and required both hands on grab bar for sit to and from stand transfer from toilet. The patient required assist for pulling up pants due to decreased balance. (Patient has difficulty hanging onto walker handles or grab bars with one hand).The patient refused to ambulate further due to fatigue. The patient completed the following LE strengthening exercises including without resistance marching, LAQ, heel to toe raises, hip adductor squeezes and resisted hip abduction and hamstring curls all x 10 reps. The patient was fatigued after PT session. O2 level remained in the 90's throughout treatment.) Physical Therapy Problem List: Detail (1) Decreased LE strength 2) Assistance with ambulation (CG) 3) Decreased standing balance 4) Decreaed ability to complete prolonged physical activity) Physical Therapy Goals: 1) Assess bed mobility. 2) Assess Balance using Objective Balance scale. 3) Increase LE strength 1/3 muscle grade to increase LE strength. 4) The patient will be independent with bed mobility and transfers. 5) The patient will ambulate independently with 4 wheeled walker household distances. 6) The patient will tolerate 30 minutes of physical activity with one rest period. Physical Therapy Plan: PT 1-2 times a day M-F for gait training, transfer training, balance and LE strengthening exercises.
[2019-03-03] MEDS: CARVEDILOL 3.125 MG TABLET PO SCH ×2 (09:46→21:14)
[2019-03-03] MEDS: ASPIRIN 81 MG TABEC PO SCH (09:46)
[2019-03-03] MEDS: RIFAMPIN 300MG CAPSULE PO SCH (09:46)
[2019-03-03] MEDS: CEPHALEXIN 500 MG CAPSULE PO SCH ×2 (09:46→21:14)
[2019-03-03] MEDS: LOSARTAN POTASSIUM 100 MG TABLET PO SCH (09:46)
[2019-03-03] MEDS: ISOSORBIDE MONONITRATE 30 MG TAB.ER.24H PO SCH (09:46)
[2019-03-03] MEDS: GABAPENTIN 300 MG CAPSULE PO SCH ×2 (09:46→21:14)
[2019-03-03] MEDS: SUCRALFATE 1 G/10 ML UD PO SCH ×4 (09:47→21:14)
[2019-03-03] MEDS: CLOPIDOGREL 75MG TABLET PO SCH (09:47)
[2019-03-03] MEDS: PATIENT OWN MED: MULTIVITAMIN PO SCH (09:48)
--- NOTE | 2019-03-03 11:02 | Swing Bed Certification/Recert ---
Initial Certification Due: 03/02/19 14 Day Re-Cert Due: 03/16/19 44 Day Re-Cert Due: 04/15/19 74 Day Re-Cert Due: 05/15/19 CERTIFICATION CERTIFICATION OF PATIENT ADMISSION Required at time of admission. Due: 03/02/19 I certify that SNF services are required to be given on an inpatient basis because of the above named patient's need for long term care on a continui ng basis for the condition(s) for which he/she was receiving inpatient hospital services prior to his/her transfer to the SNF. The patient's current needs for skilled care includes: [PT/OT, long term care, respiratory treatments] Sirena Araya, FredericP. 03/02/19
--- NOTE | 2019-03-03 11:09 | History & Physical ---
History of Present Illness - Date Date of Service for History & Physical: 03/03/19 - History of Present Illness Admitting Diagnosis: Deconditioning d/t encephalopathy History of Present Illness: Pt. is an 84 year-old female who presented to the ED on 02/15 for altered mental status, accompanied by her daughter. She was evaluated for stroke, neg head CT, she was hypertensive with SBP in the 200s, sodium was 132, otherwise labs were normal. She was transferred from [facility] to [facility] for brain MRI and EEG. EEG indicative of encephalopathic process, MRI unremarkable for acute process. Shingles was discovered on left flank, acyclovir course completed, and mental status changes resolved. 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 UA showed evidence of UTI and pt was started on rocephin and responded well- changed to keflex 500mg bid for discharge (for total of 2 weeks abx). Her history includes ischemic heart disease, hyponatremia (eats bullion cubes daily at home), ex-smoker, hx TB at age 15, neuropathy, macular degeneration, impaired hearing, HTN, ND, GERD, arthritis, and compression fractures of the spine. 03/03/19: Pt. was admitted for swing bed on 03/02/19. PT and OT evaluations were completed upon swing bed admission and will continue M-F. Will continue to monitor labs every other day. Soft diet for present time- pt is missing top dentures from recent hospitalization. PCP: MATTHEW [facility] - Cognitive Patterns Orientation: Oriented x3 - Communication Preferred Language?: [place] [employer] Required: No Level of Education: High School, College Preferred Method of Learning: Seeing, Doing, Reading Comprehension Ability: No Impairment Able to Read: No (d/t macular degeneration) Able to Write: No (d/t macular degeneration) Select best description of speech pattern: Clear Speech Ability to express ideas and wants: Understood Understanding verbal content: Understands - Psychosocial Well-Being Usual Living Arrangement: Alone - Physical Functioning Activity Level: Up with assist x1 ROM Ability: Within Normal Limits Assistive Devices: 2 Wheel Walker, 4 Wheel Walker Ambulation Ability: Needs Assist Bed Mobility: Needs Assist Transfer Ability: Needs Assist Bathing Ability: Needs Assist Personal Hygiene: Needs Assist Dressing Ability: Needs Assist Eating (Feeding) Ability: Independent Toileting Ability: Needs Assist Administer Own Medication: Needs Assist - Continence Bowel Pattern: Normal for Patient Bladder Pattern: Normal - Dental Status Unable to examine: No Broken or loosely fitting full or partial dentures: No No natural teeth or tooth fragment(s) (edentulous): Yes Abnormal mouth tissue (ulcers, masses, oral lesions, etc.): No Obvious or likely cavity or broken natural teeth: No Inflamed or bleeding gums or loose natural teeth: No Mouth/facial pain, discomfort or difficulty chewing: No - Nutrition Screening Poor oral intake > 1 week: Yes Unplanned weight loss in specified time frame: No Nutrition Support via tube feedings or parenteral nutrition: No Pressure Ulcer: No Significantly underweight define as BMI <18.5 kg/m2: No Albumin <2.5mg/dL: No Persistent nausea/vomiting/diarrhea >3 days: No Difficulty chewing/swallowing/mouth sores: No Admitting Diagnosis: No Nutrition Risk Score: High Risk Past Medical History - SOCIAL HISTORY Smoking Status: Never smoker - SURGICAL HISTORY Past Surgical History: cardiac stent. femoral stents. chest (15 yrs old from tb) - RESPIRATORY Hx Respiratory Disorders: Yes Hx Tuberculosis: Yes - CARDIOVASCULAR Hx Cardio Disorders: Yes Hx Abnormal EKG: Yes Hx Heart Attack: Yes Hx Hypertension: Yes - NEURO Hx Neuro Disorders: Yes Hx Dizziness: Yes (occasional) Hx Neuropathy: Yes - GI Hx GI Disorders: No Hx Reflux: Yes - Hx Genitourinary Disorders: No - ENDOCRINE Hx Endocrine Disorders: Yes Hx Diabetes: Yes - MUSCULOSKELETAL Hx Musculoskeletal Disorders: Yes Hx Arthritis: Yes Hx Back Injury: Yes (fx hx) - PSYCH Hx Psych Problems: No - HEMATOLOGY/ONCOLOGY Hx Hematology/Oncology Disorders: Yes Hx Blood Transfusions: Yes (@age 15?) Family Medical History Any Significant Family History?: No Hx Alcohol Use: Father Hx Dementia: Mother Hx Diabetes: Brother/Sister Hx HTN: Brother/Sister Hx Stroke: Father H&P Meds/Allergies - Allergies Allergies: Allergies Allergy/AdvReac Type Severity Reaction Status Date / Time codeine AdvReac ALTERED Verified 01/20/19 14:00 MENTAL STATUS - Home Medications Previous Rx's Medication Instructions Recorded Budesonide [Pulmicort] 0.5 mg INH RESP.BID #2 box 10/05/18 Ipratropium/Albuterol [Duoneb] 3 ml INH RESP.Q4H.WA #2 box 10/05/18 - Active Medications Active Medications: Current Medications Albuterol/Ipratropium (Duoneb) 3 ml INH RESP.QID [facility] Last Admin: 03/03/19 05:41 Dose: 3 ml Documented by: Aspirin (Ecotrin (Ec)) 81 mg PO DAILY [facility] Last Admin: 03/03/19 09:46 Dose: 81 mg Documented by: Carvedilol (Coreg) 3.125 mg PO BID [facility] Last Admin: 03/03/19 09:46 Dose: 3.125 mg Documented by: Cephalexin HCl (Keflex) 500 mg PO BID [facility] Stop: 03/11/19 10:01 Last Admin: 03/03/19 09:46 Dose: 500 mg Documented by: Clopidogrel Bisulfate (Plavix) 75 mg PO DAILY [facility] Last Admin: 03/03/19 09:47 Dose: 75 mg Documented by: Gabapentin (Neurontin) 600 mg PO BID [facility] Last Admin: 03/03/19 09:46 Dose: 600 mg Documented by: Isosorbide Mononitrate (Imdur) 30 mg PO DAILY [facility] Last Admin: 03/03/19 09:46 Dose: 30 mg Documented by: Losartan Potassium (Losartan Potassium) 100 mg PO DAILY [facility] Last Admin: 03/03/19 09:46 Dose: 100 mg Documented by: Pantoprazole Sodium (Protonix) 40 mg PO BIDAC [facility] Last Admin: 03/03/19 08:00 Dose: 40 mg Documented by: Patient Own Med: (Multivitamin) 1 each PO DAILY [facility] Last Admin: 03/03/19 09:48 Dose: 1 each Documented by: Patient Own Med: (Preservision) 1 each PO BIDWM [facility] Last Admin: 03/03/19 08:00 Dose: 1 each Documented by: Rifampin (Rifampin) 600 mg PO DAILY [facility] Stop: 06/30/19 10:01 Last Admin: 03/03/19 09:46 Dose: 600 mg Documented by: Simvastatin (Zocor) 40 mg PO QHS [facility] Last Admin: 03/02/19 21:38 Dose: 40 mg Documented by: Sucralfate (Carafate) 1 g PO QID [facility] Last Admin: 03/03/19 09:47 Dose: 1 g Documented by: Physical Exam - Vital Signs Vital Signs: Vital Signs - Last 24 Hrs Temp Pulse Pulse Pulse Resp BP Pulse Ox 03/03/19 08:02 97.6 F 116 H 20 118/68 95 03/03/19 05:41 94 H 16 97 03/02/19 21:50 97.7 F 102 H 18 140/74 97 03/02/19 21:01 104 H 20 95 03/02/19 17:17 97.7 F 114 H 18 171/65 - General General Appearance: Oriented x3 Limitations: Physical limitation - Head Head exam: Normal inspection - Eye Eye exam: Normal appearance, PERRL Pupils: Normal accommodation - ENT ENT exam: Normal exam, Mucous membranes moist, Normal external ear exam, Normal orophraynx, TM's normal bilaterally Ear exam: Normal external inspection. negative: External canal tenderness Nasal Exam: Normal inspection. negative: Discharge, Sinus tenderness Mouth exam: Normal external inspection, Tongue normal Teeth exam: Normal inspection. negative: Dental caries Throat exam: Normal inspection. negative: Tonsillar erythema, Tonsillar exudate - Neck Neck exam: Normal inspection. negative: Full ROM, Tenderness - Respiratory Respiratory exam: Decreased breath sounds - Cardiovascular Cardiovascular Exam: Regular rate, Normal rhythm, Normal heart sounds - GI/Abdominal GI/Abdominal exam: Soft, Normal bowel sounds. negative: Tenderness - Rectal Rectal exam: Deferred - exam: Deferred - Extremities Extremities exam: Normal inspection, Normal capillary refill. negative: Tenderness - Neurological Neurological exam: Oriented X3 - Psychiatric Psychiatric exam: Normal affect, Normal mood - Skin Skin exam: Rash (left lower back- lesions arranged in linear pattern, crusted over) Type of lesion: Rash Distribution of rash: Back Description of rash: Crusting, Erythematous. negative: Discharge H&P Results - Chest X-Ray In Last 90 Days Chest X-Ray Within Last 90 Days: Yes Status: Report reviewed Discharge Potential - Discharge Needs Community Services Used Prior to Admission: Home Health Nurse, Physical Therapy Patient Discharge Plan Description: Return Home Community Services Needed at Discharge: Home Health Nurse, Physical Therapy Plan - Swing Bed Certification Initial Certification Due: 03/02/19 14 Day Re-Cert Due: 03/16/19 44 Day Re-Cert Due: 04/15/19 74 Day Re-Cert Due: 05/15/19 - Detailed Diagnosis and Plan (1) Physical deconditioning Current Visit: No Status: Acute Base Code: R53.81 - OTHER MALAISE Comment: 03/03/19: -Secondary to UTI bacteremia -Hx of L4 compression fracture and lumbar DDD -PT/OT m-f (2) UTI (urinary tract infection), bacterial Current Visit: Yes Status: Acute Base Code: N39.0 - URINARY TRACT INFECTION, SITE NOT SPECIFIED; A49.9 - BACTERIAL INFECTION, UNSPECIFIED Comment: 03/03/19: -Continue Keflex 500mg BID (total of 9 days post-discharge) (3) Herpes zoster Current Visit: Yes Status: Acute Base Code: B02.9 - ZOSTER WITHOUT COMPLICATIONS Comment: 03/03/19: -Lesions on lower back are crusted over at this time -Contact precautions in place (4) Latent tuberculosis Current Visit: Yes Status: Acute Base Code: R76.11 - NONSPECIFIC REACTION TO SKIN TEST W/O ACTIVE TUBERCULOSIS Comment: 03/03/19: -Hx of TB as a child -3 negative sputum cultures were obtained during recent hospitalization (5) DVT prophylaxis Current Visit: No Status: Acute Base Code: [id number] - Comment: 03/03/19: -Continue home plavix 75mg daily and ASA 81mg daily (6) Hyponatremia Current Visit: No Status: Acute Base Code: E87.1 - HYPO-OSMOLALITY AND HYPONATREMIA Comment: 03/03/19: - Chronic, last sodium 1490 03/01/19, potassium 3.6, will continue to monitor every other day - Encouraging sodium and protein rich foods (7) DNR (do not resuscitate) Current Visit: No Status: Acute Base Code: Z66 - DO NOT RESUSCITATE Comment: 03/03/19: -Pt. is a DNR -Updated signed form in chart
--- NOTE | 2019-03-03 13:30 | Rehab Evaluation ---
Patient Information - Patient Information Diagnosis: Deconditioning d/t recent sepsis, encelphalopathy Ordered Treatment: OT Evaluate and Treat Status: Initial Evaluation Surgery: No Past Medical/Surgical Hx: PAST MEDICAL/SURGICAL HISTORY Past Surgical History cardiac stent femoral stents chest (15 yrs old from tb) PMH - Respiratory Hx Respiratory Disorders Yes Hx Bronchitis Yes Hx Chronic Obstructive Yes: no official dx Pulmonary Disease (COPD) Hx Dyspnea Yes Hx Tuberculosis Yes PMH - Cardiovascular Hx Cardiovascular Disorders Yes Hx Abnormal EKG Yes Hx Cardiac Catheterization Yes Hx Heart Attack Yes Hx Hypertension Yes PMH - Neuro Hx Neurological Disorders Yes Hx Dizziness Yes: occasional Hx Neuropathy Yes PMH - GI Hx Gastrointestinal Disorders No Hx Gastroesophageal Reflux Yes PMH - Hx Genitourinary Disorders No PMH - Endocrine Hx Endocrine Disorders Yes Hx Diabetes Yes PMH - Musculoskeletal Hx Musculoskeletal Disorders Yes Hx Arthritis Yes Hx Back Injury Yes: fx hx PMH - Psych Hx Psychiatric Problems No PMH - Hematology/Oncology Hx Hematology/Oncology Yes Disorders Premorbid Status: Detail (Patient was ambulatory at home with 4 wheeled walker and was independent with toileting and dressing. The patient did have assistance with showering from daughter and son-in-law and daughter assisted with meals and all hand collator.) Social History: Detail (The patient lives in a mobile home with a ramp at the enterance. Daughter and son-in-law live next door. The bathroom is equipped with the following: tub shower combination with extended shower chair with a suction grab bar, standard height toilet with a grab bar in front. The patient has a 4 wheeled walker and cradle slide maker.) Precautions: Polaris, Fall - Time With Patient Total Time Spent With Patient (Min): 25 Treatment Procedures: Detail (OT eval LOW) Subjective Information - Subjective Information Per Patient Objective Data - Pain Pain Present: Yes Pain Intensity: 8 (only in right shld when trying to lift overhead.) Pain Scale Used: Numeric (1 - 10) - Mental Status Patient Orientation: Oriented x3 - Visual Perception Deficit (macular degeneration) - ROM Not within normal limits (LUE is WNL for shld flex, abd, ext and elbow flex/ext. RUE is much more impaired than Left. Patient reports it has been like this for many years since a fall. She does feel that ROM in LUE is worse now than MANAGER VALUATION. LUE shows approximate flex to 60 deg, abduction to 70 deg both with audible crepitus. Patient unable to hold LUE out into shld flex to demonstrate elbow ext. Patient is WNL for elbow flex/ext.) - Strength/Tone Not within normal limits (Patient shows good strength for both shld extension and elbow extension however flexors are extremely weak and would make pulling into standing using her grab bar difficult. Detailed information follows: for the LUE: shld flex = 3/5, shld ext = 4+/5, shld abd = 3/5, shld add = 4+/5, IR and ER = 4-/5, elbow flex = 3+/5, elbow ext = 4/5; for the RUE within available ROM: shld flex = 3-/5, shld ext = 4-/5, shld abd 3-/5, IR and ER = 3/5, elbow flex/ext= 3+/5) - Coordination Deficit (Patient states she has neuropathy in fingers and finds buttoning and FMC impaired.) - ADL's/IADL's Detail (Patient states that she is independent with drsg and has been getting dressed by herself without help from nsg. Discussed further evaluating UB and LB drsg at next treatment session. Patient was able to independently don/doff bila teral socks and shoes without equipment or loss of balance.) Therapy Assessment - Therapy Assessment Detail (Patient presents with decreased upper extremity ROM and strength effecting safety and independence with self care tasks. Due to biceps weakness and weakness with shld flexors, patient has difficulty with sit<>stand t/f's from toilet level. Feel patient would benefit from skilled OT to regain independence with self care tasks and improve indepencence and safety with toilet t/f's.) Problem List - Problem List Physical Therapy Problem List: Detail (1) Decreased LE strength 2) Assistance with ambulation (CG) 3) Decreased standing balance 4) Decreaed ability to complete prolonged physical activity) Occupational Therapy Problem List: Detail (1. Weakness bilateral upper extremities 2. Decreased ROM bilateral upper extremities 3. Decreased indep endence with sit<>stand t/f toilet level 4. Further evaluate UB and LB drsg. 5. Decreased endurance) Goals - Goals Physical Therapy Goals: 1) Assess bed mobility. 2) Assess Balance using Objective Balance scale. 3) Increase LE strength 1/3 muscle grade to increase LE strength. 4) The patient will be independent with bed mobility and transfers. 5) The patient will ambulate independently with 4 wheeled walker household distances. 6) The patient will tolerate 30 minutes of physical activity with one rest period. Occupational Therapy Goals: 1. Independent with sit<>stand t/f's toilet level with grab bars and 4WW. 2. Independent ambulation of household distances with 4WW. 3. Evaluate UB and LB drsg. 4. Increase left UE strength by 1/3 muscle grade for shld flex and elbow flex. 5. Increase ARENAS of bilateral upper extremities by 15 degrees Prognosis - Prognosis Good Plan - Plan Physical Therapy Plan: PT 1-2 times a day M-F for gait training, transfer training, balance and LE strengthening exercises. Occupational Therapy Plan: OT 2-4x a week Friday through Friday for UE strengthening, ROM, and increased independence with self care tasks.
[2019-03-03] MEDS: SIMVASTATIN 20 MG TABLET PO SCH (21:14)
[2019-03-04] MEDS: IPRATROPIUM/ALBUTEROL (0.5MG/3MG) NEB INH SCH ×4 (05:43→21:51)
[2019-03-04] MEDS: PANTOPRAZOLE SODIUM 40 MG TABLET PO SCH ×2 (06:00→16:50)
[2019-03-04 06:43] LABS: ALBUMIN 3.2 g/dL (4.0-5.0); ALKALINE PHOSPHATASE 73 U/L (35-104); ALT/SGPT 25 U/L (<33); AST/SGOT 18 U/L (10.0-35.0); BLOOD UREA NITROGEN 11 mg/dL (8-23); CREATININE 0.6 mg/dL (0.5-0.9); EST GLOMERULAR FILTRATION RATE > 60 mL/min; GLUCOSE,RANDOM 105 mg/dL (74-109); TOTAL PROTEIN 6.3 g/dL (6.6-8.7)
[2019-03-04] MEDS: PRESERVISION PO SCH ×2 (08:33→16:50)
[2019-03-04] MEDS: SUCRALFATE 1 G/10 ML UD PO SCH ×4 (09:40→22:17)
[2019-03-04] MEDS: CARVEDILOL 3.125 MG TABLET PO SCH ×2 (09:41→22:17)
[2019-03-04] MEDS: ASPIRIN 81 MG TABEC PO SCH (09:42)
[2019-03-04] MEDS: LOSARTAN POTASSIUM 100 MG TABLET PO SCH (09:42)
[2019-03-04] MEDS: GABAPENTIN 300 MG CAPSULE PO SCH ×2 (09:42→22:17)
[2019-03-04] MEDS: CEPHALEXIN 500 MG CAPSULE PO SCH ×2 (09:42→22:18)
[2019-03-04] MEDS: PATIENT OWN MED: MULTIVITAMIN PO SCH (09:43)
[2019-03-04] MEDS: CLOPIDOGREL 75MG TABLET PO SCH (09:43)
[2019-03-04] MEDS: ISOSORBIDE MONONITRATE 30 MG TAB.ER.24H PO SCH (09:43)
[2019-03-04] MEDS: RIFAMPIN 300MG CAPSULE PO SCH (09:43)
--- NOTE | 2019-03-04 14:59 | Physical Therapy Tx Note ---
Physical Therapy Tx Note - Treatment Note Tolerated: Good Total Time Spent With Patient: 30 Physical Therapy Tx Note: Detail (Patient was seated in chair upon CERTIFIED ORTHOTIST/PEDORTHIST arrival. Patient transferred sit to and from stand CGA x1. Patient ambulated 90 feet with four wheeled walker SBA x1 with 2L portable oxygen. Patient performed the following seated exercises x10 reps each: marching, heel raises, toe raises, LAQ, hamstring curls with yellow theraband, isometric hip adduction, hip abduction with yellow theraband, abdominal isometrics, and glut squeezes. Patient tolerated treatment well. Patient reports feeling good after treatment. Patient displays decreased strength and endurance with ambulation, LAQ, hamstring curls, and hip abduction with theraband. Patient was left seated in chair on 2L oxygen with call light within reach.) Physical Therapy Problem List: Detail (1) Decreased LE strength 2) Assistance with ambulation (CG) 3) Decreased standing balance 4) Decreaed ability to complete prolonged physical activity) Physical Therapy Goals: 1) Assess bed mobility. 2) Assess Balance using Objective Balance scale. 3) Increase LE strength 1/3 muscle grade to increase LE strength. 4) The patient will be independent with bed mobility and transfers. 5) The patient will ambulate independently with 4 wheeled walker household distances. 6) The patient will tolerate 30 minutes of physical activity with one rest period. Prognosis: Good Physical Therapy Plan: PT 1-2 times a day M-F for gait training, transfer training, balance and LE strengthening exercises.
--- NOTE | 2019-03-04 15:09 | Physical Therapy Tx Note ---
Physical Therapy Tx Note - Treatment Note Tolerated: Good Total Time Spent With Patient: 30 Physical Therapy Tx Note: Detail (Patient was seated in chair upon PIPELINE INTEGRITY ENGINEER arrival. Patient transferred sit to and from stand CGA x1. Patient ambulated 90 feet with four wheeled walker SBA x1 with 2L portable oxygen. Patient performed the following seated exercises x10 reps each: marching, heel raises, toe raises, LAQ, hamstring curls with yellow theraband, isometric hip adduction, hip abduction with yellow theraband, abdominal isometrics, and glut squeezes. Patient tolerated treatment well. Patient reports feeling good after treatment. Patient displays decreased strength and endurance with ambulation, LAQ, hamstring curls, and hip abduction with theraband. Patient was left seated in chair on 2L oxygen with call light within reach.) Physical Therapy Problem List: Detail (1) Decreased LE strength 2) Assistance with ambulation (CG) 3) Decreased standing balance 4) Decreaed ability to complete prolonged physical activity) Physical Therapy Goals: 1) Assess bed mobility. 2) Assess Balance using Objective Balance scale. 3) Increase LE strength 1/3 muscle grade to increase LE strength. 4) The patient will be independent with bed mobility and transfers. 5) The patient will ambulate independently with 4 wheeled walker household distances. 6) The patient will tolerate 30 minutes of physical activity with one rest period. Prognosis: Good Physical Therapy Plan: PT 1-2 times a day M-F for gait training, transfer training, balance and LE strengthening exercises.
--- NOTE | 2019-03-04 15:45 | Physical Therapy Tx Note ---
Physical Therapy Tx Note - Treatment Note Tolerated: Good Total Time Spent With Patient: 30 Physical Therapy Tx Note: Detail (Patient states low back painful this afternoon. Patient transferred sit to and from stand CGA x1. Patient ambulated 146 feet with four wheeled walker SBA x1. Patient transferred sit to and from stand SBA x1. Patient performed the following balance exercises with 1 hand hold on walker x15 seconds each: feet together, DLS with looking side to side, DLS with looking up and down, and feet together with eyes closed. Patient tolerated treatment well. Patient displays decreased balance with feet together, DLS with looking side to side, DLS with looking up and down, and feet together with eyes closed. Patient required several seated rest breaks with standing balance due to fatigue. Patient was left seated in chair with call light within reach.) Physical Therapy Problem List: Detail (1) Decreased LE strength 2) Assistance with ambulation (CG) 3) Decreased standing balance 4) Decreaed ability to complete prolonged physical activity) Physical Therapy Goals: 1) Assess bed mobility. 2) Assess Balance using Objective Balance scale. 3) Increase LE strength 1/3 muscle grade to increase LE strength. 4) The patient will be independent with bed mobility and transfers. 5) The patient will ambulate independently with 4 wheeled walker household distances. 6) The patient will tolerate 30 minutes of physical activity with one rest period. Prognosis: Good Physical Therapy Plan: PT 1-2 times a day M-F for gait training, transfer train ing, balance and LE strengthening exercises.
[2019-03-04] MEDS ORDERED: ACETAMINOPHEN 325 MG TAB PO PRN (18:13)
[2019-03-04] MEDS: ACETAMINOPHEN 500 MG TABLET PO PRN (18:21)
[2019-03-04] MEDS: SIMVASTATIN 20 MG TABLET PO SCH (22:19)
[2019-03-05] MEDS: PANTOPRAZOLE SODIUM 40 MG TABLET PO SCH ×2 (07:24→15:54)
[2019-03-05] MEDS: PRESERVISION PO SCH ×2 (07:25→17:07)
[2019-03-05] MEDS: IPRATROPIUM/ALBUTEROL (0.5MG/3MG) NEB INH SCH ×4 (07:37→21:41)
[2019-03-05] MEDS: LOSARTAN POTASSIUM 100 MG TABLET PO SCH (09:33)
[2019-03-05] MEDS: GABAPENTIN 300 MG CAPSULE PO SCH ×2 (09:33→22:38)
[2019-03-05] MEDS: ISOSORBIDE MONONITRATE 30 MG TAB.ER.24H PO SCH (09:33)
[2019-03-05] MEDS: ASPIRIN 81 MG TABEC PO SCH (09:33)
[2019-03-05] MEDS: SUCRALFATE 1 G/10 ML UD PO SCH ×4 (09:33→22:37)
[2019-03-05] MEDS: CARVEDILOL 3.125 MG TABLET PO SCH ×2 (09:34→22:38)
[2019-03-05] MEDS: CEPHALEXIN 500 MG CAPSULE PO SCH ×2 (09:34→22:38)
[2019-03-05] MEDS: RIFAMPIN 300MG CAPSULE PO SCH (09:34)
[2019-03-05] MEDS: CLOPIDOGREL 75MG TABLET PO SCH (09:34)
[2019-03-05] MEDS: PATIENT OWN MED: MULTIVITAMIN PO SCH (09:35)
[2019-03-05] MEDS: ASCORBIC ACID 500 MG TAB PO SCH (12:04)
--- NOTE | 2019-03-05 12:16 | Occupational Therapy Tx Note ---
Occupational Therapy Tx Note - Treatment Note Tolerated: Good Total Time Spent With Patient: 50 Occupational Therapy Treatment Note: Detail (Pt in bedside chair upon arrival. CGA stand pivot t/f into w/c for w/c mobility to rehab gym. Pt on 2L O2. Patient cleared to have therapy in rehab gym by repair specialist. She was instructed on shld strengthening with theraband HEP and given red theraband for biceps and triceps and yellow for shld flex. Patient completed 2 sets of 10 for bilateral elbow flex and elbow ext and 1 set of 10 with yellow theraband for left shld flex. Due to old injury of Right shld patient was unable to to complete shld flex w/ theraband on that side. Patient issued theraband and handout. Patient also instructed on and demo'd understanding of red theraputty HEP. Patient fatigued post tx but tolerated well.) Occupational Therapy Problem List: Detail (1. Weakness bilateral upper extremities 2. Decreased ROM bilateral upper extremities 3. Decreased independence with sit<>stand t/f toilet level 4. Further evaluate UB and LB drsg. 5. Decreased endurance) Occupational Therapy Goals: 1. Independent with sit<>stand t/f's toilet level with grab bars and 4WW. 2. Independent ambulation of household distances with 4WW. 3. Evaluate UB and LB drsg. 4. Increase left UE strength by 1/3 muscle grade for shld flex and elbow flex. 5. Increase ARENAS of bilateral upper extremities by 15 degrees Prognosis: Good Occupational Therapy Plan: OT 2-4x a week Friday through Friday for UE strengthening, ROM, and increased independence with self care tasks.
--- NOTE | 2019-03-05 14:48 | Physical Therapy Tx Note ---
Physical Therapy Tx Note - Treatment Note Tolerated: Good Total Time Spent With Patient: 30 Physical Therapy Tx Note: Detail (The patient was up in chair when PT arrived. The patient ambulated with 4 wheeled walker a distance of 180 feet x 1 with 2 L of O 2 and supervision for safety only. SpO2 remained 91. The patient then completed the following exercises: standing balance hanging onto support with one hand and without hanging on with wide base of support and LE strengthening exercises: with red T-band marching, hip abduction, hamstring curls all x 15 reps, hip adductor squeezes, LAQ and heel/toe raises all x 15 reps. The patient was able to ambulate further and exhibited improved balance( standing without support).) Physical Therapy Problem List: Detail (1) Decreased LE strength 2) Assistance with ambulation (CG) 3) Decreased standing balance 4) Decreaed ability to complete prolonged physical activity) Physical Therapy Goals: 1) Assess bed mobility. 2) Assess Balance using Objective Balance scale. 3) Increase LE strength 1/3 muscle grade to increase LE strength. 4) The patient will be independent with bed mobility and transfers. 5) The patient will ambulate independently with 4 wheeled walker ho usehold distances. 6) The patient will tolerate 30 minutes of physical activity with one rest period. Physical Therapy Plan: PT 1-2 times a day M-F for gait training, transfer training, balance and LE strengthening exercises.
[2019-03-05] MEDS: SIMVASTATIN 20 MG TABLET PO SCH (22:38)
[2019-03-06] MEDS: PANTOPRAZOLE SODIUM 40 MG TABLET PO SCH ×2 (07:05→16:55)
[2019-03-06] MEDS: PRESERVISION PO SCH ×2 (08:14→16:56)
[2019-03-06] MEDS: IPRATROPIUM/ALBUTEROL (0.5MG/3MG) NEB INH SCH ×4 (08:39→20:34)
[2019-03-06] MEDS: SUCRALFATE 1 G/10 ML UD PO SCH ×4 (10:02→21:24)
[2019-03-06] MEDS: GABAPENTIN 300 MG CAPSULE PO SCH ×2 (10:02→21:24)
[2019-03-06] MEDS: CEPHALEXIN 500 MG CAPSULE PO SCH ×2 (10:02→21:24)
[2019-03-06] MEDS: ASCORBIC ACID 500 MG TAB PO SCH (10:03)
[2019-03-06] MEDS: ISOSORBIDE MONONITRATE 30 MG TAB.ER.24H PO SCH (10:03)
[2019-03-06] MEDS: LOSARTAN POTASSIUM 100 MG TABLET PO SCH (10:03)
[2019-03-06] MEDS: ASPIRIN 81 MG TABEC PO SCH (10:03)
[2019-03-06] MEDS: CLOPIDOGREL 75MG TABLET PO SCH (10:03)
[2019-03-06] MEDS: CARVEDILOL 3.125 MG TABLET PO SCH ×2 (10:03→21:24)
[2019-03-06] MEDS: RIFAMPIN 300MG CAPSULE PO SCH (10:04)
[2019-03-06] MEDS: PATIENT OWN MED: MULTIVITAMIN PO SCH (10:05)
[2019-03-06] MEDS: SIMVASTATIN 20 MG TABLET PO SCH (21:24)
[2019-03-07] MEDS: IPRATROPIUM/ALBUTEROL (0.5MG/3MG) NEB INH SCH ×4 (06:07→22:25)
[2019-03-07] MEDS: PANTOPRAZOLE SODIUM 40 MG TABLET PO SCH ×2 (06:25→17:06)
[2019-03-07] MEDS: PRESERVISION PO SCH ×2 (08:13→17:07)
[2019-03-07] MEDS: LOSARTAN POTASSIUM 100 MG TABLET PO SCH (10:18)
[2019-03-07] MEDS: RIFAMPIN 300MG CAPSULE PO SCH (10:18)
[2019-03-07] MEDS: CARVEDILOL 3.125 MG TABLET PO SCH ×2 (10:18→21:42)
[2019-03-07] MEDS: GABAPENTIN 300 MG CAPSULE PO SCH ×2 (10:18→21:43)
[2019-03-07] MEDS: ASPIRIN 81 MG TABEC PO SCH (10:18)
[2019-03-07] MEDS: ASCORBIC ACID 500 MG TAB PO SCH (10:18)
[2019-03-07] MEDS: CLOPIDOGREL 75MG TABLET PO SCH (10:18)
[2019-03-07] MEDS: SUCRALFATE 1 G/10 ML UD PO SCH ×4 (10:18→21:43)
[2019-03-07] MEDS: ISOSORBIDE MONONITRATE 30 MG TAB.ER.24H PO SCH (10:18)
[2019-03-07] MEDS: CEPHALEXIN 500 MG CAPSULE PO SCH ×2 (10:18→21:43)
[2019-03-07] MEDS: PATIENT OWN MED: MULTIVITAMIN PO SCH (10:24)
[2019-03-07] MEDS: SIMVASTATIN 20 MG TABLET PO SCH (21:43)
[2019-03-08] MEDS: IPRATROPIUM/ALBUTEROL (0.5MG/3MG) NEB INH SCH ×4 (06:04→21:43)
[2019-03-08] MEDS: PANTOPRAZOLE SODIUM 40 MG TABLET PO SCH ×2 (08:08→16:58)
[2019-03-08] MEDS: PRESERVISION PO SCH ×2 (08:09→16:58)
[2019-03-08] MEDS: CARVEDILOL 3.125 MG TABLET PO SCH ×2 (09:03→22:20)
[2019-03-08] MEDS: SUCRALFATE 1 G/10 ML UD PO SCH ×4 (09:03→22:21)
[2019-03-08] MEDS: CEPHALEXIN 500 MG CAPSULE PO SCH ×2 (09:04→22:20)
[2019-03-08] MEDS: ISOSORBIDE MONONITRATE 30 MG TAB.ER.24H PO SCH (09:04)
[2019-03-08] MEDS: ASPIRIN 81 MG TABEC PO SCH (09:04)
[2019-03-08] MEDS: LOSARTAN POTASSIUM 100 MG TABLET PO SCH (09:04)
[2019-03-08] MEDS: PATIENT OWN MED: MULTIVITAMIN PO SCH (09:05)
[2019-03-08] MEDS: CLOPIDOGREL 75MG TABLET PO SCH (09:05)
[2019-03-08] MEDS: GABAPENTIN 300 MG CAPSULE PO SCH ×2 (09:05→22:20)
[2019-03-08] MEDS: RIFAMPIN 300MG CAPSULE PO SCH (09:07)
[2019-03-08] MEDS: ASCORBIC ACID 500 MG TAB PO SCH (09:07)
--- NOTE | 2019-03-08 11:39 | Occupational Therapy Tx Note ---
Occupational Therapy Tx Note - Treatment Note Tolerated: Fair Total Time Spent With Patient: 45 (ADL) Occupational Therapy Treatment Note: Detail (S: Pt up in chair, very sleepy. O: Sit to stand and amb 15 feet to shower seat with 4 wheeled walker and CG assist. Pt doffed PJ top, bottoms, socks, tennis shoes and briefs with CG assist while standing and with short rest breaks due to shortness of breath. Pt using 1 liter of oxygen which was increased to 3 liters due to breathing. Pt completed washing hair, face, arms, chest and legs Indly. Pt required mod assist for sit to stand with use of grab bar, she was able to wash carrie area and buttocks with CG assist for balance. Pt dried self Indly with exception of requiring assist for sit to stand to dry buttocks and carrie area. Pt donned shirt Indly. Pt sat and dried hair using hair rooting machine operator Indly. Sit to stand from shower seat with mod assist and transferred to 4 wheeled walker seat with CG assist. Pt donned underpants over feet Indly and then required min assist to start pants over feet. Pt required min assist to stand and max assist to pull underpants and pants over hips. Pt donned socks with min assist and tennis shoes with mod assist. Sit to stand from walker and amb 15 feet back to chair with CG assist using 4 wheeled walker. A: Pt is Ind with upper body showering and dressing, Ind with lower body showering, mod-max assist for lower body dressing, pt is very fatigued with activity.) Occupational Therapy Problem List: Detail (1. Weakness bilateral upper extremities 2. Decreased ROM bilateral upper extremities 3. Decreased independence with sit<>stand t/f toilet level 4. Further evaluate UB and LB drsg. 5. Decreased endurance) Occupational Therapy Goals: 1. Independent with sit<>stand t/f's toilet level with grab bars and 4WW. 2. Independent ambulation of household distances with 4WW. 3. Evaluate UB and LB drsg. 4. Increase left UE strength by 1/3 muscle grade for shld flex and elbow flex. 5. Increase ARENAS of bilateral upper extremities by 15 degrees Prognosis: Good Occupational Therapy Plan: OT 2-4x a week Friday through Friday for UE strengthening, ROM, and increased independence with self care tasks.
[2019-03-08] MEDS: ACETAMINOPHEN 500 MG TABLET PO PRN (14:25)
--- NOTE | 2019-03-08 16:03 | Physical Therapy Tx Note ---
Physical Therapy Tx Note - Treatment Note Physical Therapy Tx Note: Detail (The patient refused PT this pm due to fatigue and a headache. Will see patient tomorrow am.) Physical Therapy Problem List: Detail (1) Decreased LE strength 2) Assistance with ambulation (CG) 3) Decreased standing balance 4) Decreaed ability to complete prolonged physical activity) Physical Therapy Goals: 1) Assess bed mobility. 2) Assess Balance using Objective Balance scale. 3) Increase LE strength 1/3 muscle grade to increase LE strength. 4) The patient will be independent with bed mobility and transfers. 5) The patient will ambulate independently with 4 wheeled walker household distances. 6) The patient will tolerate 30 minutes of physical activity with one rest period. Physical Therapy Plan: PT 1-2 times a day M-F for gait training, transfer training, balance and LE strengthening exercises.
[2019-03-08] MEDS: SIMVASTATIN 20 MG TABLET PO SCH (22:20)
[2019-03-09] MEDS: PANTOPRAZOLE SODIUM 40 MG TABLET PO SCH ×2 (06:18→17:02)
[2019-03-09] MEDS: PRESERVISION PO SCH ×2 (08:00→17:02)
[2019-03-09] MEDS: IPRATROPIUM/ALBUTEROL (0.5MG/3MG) NEB INH SCH (08:37)
[2019-03-09] MEDS: ASCORBIC ACID 500 MG TAB PO SCH (09:20)
[2019-03-09] MEDS: GABAPENTIN 300 MG CAPSULE PO SCH ×2 (09:20→21:12)
[2019-03-09] MEDS: LOSARTAN POTASSIUM 100 MG TABLET PO SCH (09:20)
[2019-03-09] MEDS: SUCRALFATE 1 G/10 ML UD PO SCH ×4 (09:20→21:12)
[2019-03-09] MEDS: CEPHALEXIN 500 MG CAPSULE PO SCH ×2 (09:20→21:12)
[2019-03-09] MEDS: CARVEDILOL 3.125 MG TABLET PO SCH ×2 (09:20→21:12)
[2019-03-09] MEDS: CLOPIDOGREL 75MG TABLET PO SCH (09:20)
[2019-03-09] MEDS: ISOSORBIDE MONONITRATE 30 MG TAB.ER.24H PO SCH (09:20)
[2019-03-09] MEDS: PATIENT OWN MED: MULTIVITAMIN PO SCH (09:21)
[2019-03-09] MEDS: ASPIRIN 81 MG TABEC PO SCH (09:21)
[2019-03-09] MEDS: RIFAMPIN 300MG CAPSULE PO SCH (09:22)
[2019-03-09] MEDS ORDERED: IPRATROPIUM/ALBUTEROL (0.5MG/3MG) NEB INH PRN (09:52)
--- NOTE | 2019-03-09 12:01 | Physical Therapy Tx Note ---
Physical Therapy Tx Note - Treatment Note Tolerated: Good Total Time Spent With Patient: 30 Physical Therapy Tx Note: Detail (The patient was in bathroom when PT arrived. The patient ambulated with 4 wheeled walker 25 feet x 1 with CG due to LE unsteadiness. The patient stated she felt unsteady today for some reason. The patient was taken to Rehab depart and completed the following exercises: in parallel bars: balance with one hand support and without support, standing hip abduction x 10 reps, seated LE strengthening exercises: heel raises, toe raises, hip marching, hip adductor squeezes, gluteal sets, LAQ, red T-band hip abduction and hamstring curls all x 10-15 reps. The patient's O2 sat level was measured after exercises and decreased to as low as 86 with a 2 to 3 minute recovery to return to 90 and above. The patient required frequent rest periods throughout PT session.) Physical Therapy Problem List: Detail (1) Decreased LE strength 2) Assistance with ambulation (CG) 3) Decreased standing balance 4) Decreaed ability to compl ete prolonged physical activity) Physical Therapy Goals: 1) Assess bed mobility. 2) Assess Balance using Objective Balance scale.(Goal Met). 3) Increase LE strength 1/3 muscle grade to increase LE strength. 4) The patient will be independent with bed mobility and transfers. 5) The patient will ambulate independently with 4 wheeled walker household distances. 6) The patient will tolerate 30 minutes of physical activity with one rest period. Physical Therapy Plan: PT 1-2 times a day M-F for gait training, transfer training, balance and LE strengthening exercises.
--- NOTE | 2019-03-09 13:03 | Occupational Therapy Tx Note ---
Occupational Therapy Tx Note - Treatment Note Tolerated: Good Total Time Spent With Patient: 30 (ther ex) Occupational Therapy Treatment Note: Detail (S: Pt seen in rehab gym. She reports feeling good today. O: Pt completed tod UE strengthening/endurance activities using shoulder arc x 2 sets each UE with minimal assist for right shoulder due to fatigue for second set. Pt completed tod reaching activity with resisted clothespins x 15 reps each hand with focus on coordination. Gentle passive stretching to right shoulder and tod hands due to painful right shoulder and stiff fingers. Pt slightly short of breath with activity with O2 sats at 86-87 with activity which improved to 90-92 with rest breaks. Pt transported back to room via wheelchair and she amb to recliner with SBA using 4 wheeled walker. A: Right shoulder pain continues from premorbid injury, mild shortness of breath with UE activity) Occupational Therapy Problem List: Detail (1. Weakness bilateral upper extremities 2. Decreased ROM bilateral upper extremities 3. Decreased independence with sit<>stand t/f toilet level 4. Further evaluate UB and LB drsg. 5. Decreased endurance) Occupational Therapy Goals: 1. Independent with sit<>stand t/f's toilet level with grab bars and 4WW. 2. Independent ambulation of household distances with 4WW. 3. Evaluate UB and LB drsg. 4. Increase left UE strength by 1/3 muscle grade for shld flex and elbow flex. 5. Increase ARENAS of bilateral upper extremities by 15 degrees Prognosis: Good Occupational Therapy Plan: OT 2-4x a week Friday through Friday for UE strengthening, ROM, and increased independence with self care tasks.
[2019-03-09] MEDS: SIMVASTATIN 20 MG TABLET PO SCH (21:13)
[2019-03-10] MEDS: PANTOPRAZOLE SODIUM 40 MG TABLET PO SCH ×2 (06:27→17:06)
[2019-03-10] MEDS: PRESERVISION PO SCH ×2 (07:50→17:06)
[2019-03-10] MEDS: RIFAMPIN 300MG CAPSULE PO SCH (11:26)
[2019-03-10] MEDS: ASCORBIC ACID 500 MG TAB PO SCH (11:27)
[2019-03-10] MEDS: ISOSORBIDE MONONITRATE 30 MG TAB.ER.24H PO SCH (11:27)
[2019-03-10] MEDS: ASPIRIN 81 MG TABEC PO SCH (11:27)
[2019-03-10] MEDS: GABAPENTIN 300 MG CAPSULE PO SCH ×2 (11:27→22:14)
[2019-03-10] MEDS: LOSARTAN POTASSIUM 100 MG TABLET PO SCH (11:27)
[2019-03-10] MEDS: CARVEDILOL 3.125 MG TABLET PO SCH ×2 (11:27→22:14)
[2019-03-10] MEDS: SUCRALFATE 1 G/10 ML UD PO SCH ×4 (11:28→22:15)
[2019-03-10] MEDS: CEPHALEXIN 500 MG CAPSULE PO SCH ×2 (11:28→22:14)
[2019-03-10] MEDS: PATIENT OWN MED: MULTIVITAMIN PO SCH (11:28)
[2019-03-10] MEDS: CLOPIDOGREL 75MG TABLET PO SCH (11:29)
--- NOTE | 2019-03-10 11:46 | Physical Therapy Tx Note ---
Physical Therapy Tx Note - Treatment Note Tolerated: Good Total Time Spent With Patient: 30 Physical Therapy Tx Note: Detail (Patient states she's tired today, and her back is painful. Patient was seated in wheelchair. Patient performed treatment with 1L portable oxygen Patient transferred sit to and from stand x2 SBA x1 in parallel bars. Patient performed the following balance exercises with one hand hold on bar x10 seconds each: feet together, feet together looking up and down, and feet together looking side to side. Patient required several seated rest breaks with standing balance exercises due to low back pain. Patient performed the following seated exercises x10-15 reps each: marching, LAQ, hamstring curls with yellow theraband, heel raises, toe raises, hip abduction with red theraband, hip adductor squeezes, and glut squeezes. Patient transferred sit to and from stand SBA x1. Patient tolerated treatment well. Patient tolerated treatment well. Patient displays decreased balance with feet together with looking side to side, and feet together with looking up and down. Patient displays decreased strength and endurance with hip adductor squeezes, hamstring curls with theraband, and hip abduction with theraband. Patient reports feeling tired after treatment. Patient was left seated in chair with call light within reach.) Physical Therapy Problem List: Detail (1) Decreased LE strength 2) Assistance with ambulation (CG) 3) Decreased standing balance 4) Decreaed ability to complete prolonged physical activity) Physical Therapy Goals: 1) Assess bed mobility. 2) Assess Balance using Ob jective Balance scale.(Goal Met). 3) Increase LE strength 1/3 muscle grade to increase LE strength. 4) The patient will be independent with bed mobility and transfers. 5) The patient will ambulate independently with 4 wheeled walker household distances. 6) The patient will tolerate 30 minutes of physical activity with one rest period. Prognosis: Good Physical Therapy Plan: PT 1-2 times a day M-F for gait training, transfer training, balance and LE strengthening exercises.
--- NOTE | 2019-03-10 12:26 | Occupational Therapy Tx Note ---
Occupational Therapy Tx Note - Treatment Note Tolerated: Good Total Time Spent With Patient: 45 (2 TE, 1 TA) Occupational Therapy Treatment Note: Detail (S: Pt in bedside chair upon therapist arrival, agreeable to OT Tx, reports her hands are sore this date. O: Therapeutic exercises to increase ROM and strength B UEs for increased safety and independence with ADLs and for UB compensation during functional TFs. Biceps, triceps, and punch outs 10 reps x 2 sets at weight machine plate 1. SpO2 dropped to 87% with activity without recover during therapist instructed breathing techniques (fair to good follow thru), 2L O2 NC placed on Pt and O2 increased to 93%. 2 pound weight punch ups with L, no weight R with active assist shoulder flexion d/t chronic pain R shld, 10 reps x2. Moist heat applied to R shld to increase ROM and decrease pain during resistive clothespins yellow, red, and green with R UE, therapist instructing Pt on 3-jaw sindhu pinch to increase success with fine motor tasks. SpO2 92%+ on 1 L O2 NC. Pt reports heat is helpful. A: Pt tolerates session fair/good, limited by R shoulder pain and sore R hand, however feels she needs to strengthen this arm for function and safety and feels it is getting stronger.) Occupational Therapy Problem List: Detail (1. Weakness bilateral upper extremities 2. Decreased ROM bilateral upper extremities 3. Decreased independence with sit<>stand t/f toilet level 4. Further evaluate UB and LB drsg. 5. Decreased endurance) Occupational Therapy Goals: 1. Independent with sit<>stand t/f's toilet level with grab bars and 4WW. 2. Independent ambulation of household distances with 4WW. 3. Evaluate UB and LB drsg. 4. Increase left UE strength by 1/3 muscle grade for shld flex and elbow flex. 5. Increase ARENAS of bilateral upper extremities by 15 degrees Prognosis: Good Occupational Therapy Plan: OT 2-4x a week Friday through Friday for UE strengthening, ROM, and increased independence with self care tasks.
--- NOTE | 2019-03-10 15:15 | Physician Progress Note ---
Subjective - Date Date of Progress Note: 03/10/19 - Admitting Diagnosis Diagnosis: Deconditioning d/t encephalopathy - Subjective Events since last encounter: No new nursing concerns. Shingle lesions have crusted over. Is at baseline cognition. Is progressing towards discharge goals with PT/OT without concerns Nursing Care Plan Problem List Activity Intolerance (Swing Bed) Start: 03/02/19 16:15 Freq: Status: Active Protocol: Created 03/02/19 16:15 [facility] (Rec: 03/02/19 16:15 [facility] [email or web address]-1) Altered Thought Process (Fall Risk) Start: 03/02/19 16:17 Freq: Status: Active Protocol: Created 03/02/19 16:17 [facility] (Rec: 03/02/19 16:17 [facility] ASTS-1) Impaired Mobility (Fall Risk) Start: 03/02/19 16:17 Freq: Status: Active Protocol: Created 03/02/19 16:17 [facility] (Rec: 03/02/19 16:17 [facility] ASTS-1) Knowledge Deficit (Swing Bed) Start: 03/02/19 16:15 Freq: Status: Active Protocol: Created 03/02/19 16:15 [facility] (Rec: 03/02/19 16:15 [facility] ASTS-1) Pain (Swing Bed) Start: 03/02/19 16:15 Freq: Status: Active Protocol: Created 03/02/19 16:15 [facility] (Rec: 03/02/19 16:15 [facility] ASTS-1) Risk for Injury (Fall Risk) Start: 03/02/19 16:17 Freq: Status: Active Protocol: Created 03/02/19 16:17 [facility] (Rec: 03/02/19 16:17 [facility] ASTS-1) - Subjective Detail Constitutional: Reports: As per HPI Eyes: Reports: As per HPI ENT: Reports: As per HPI Respiratory: Reports: As per HPI Endocrine: Reports: As per HPI Gastrointestinal: Reports: As per HPI Genitourinary: Reports: As per HPI Musculoskeletal: Reports: As per HPI Skin: Reports: As per HPI Neurological: Reports: As per HPI Psychiatric: Reports: As per HPI Hematological/Lymphatic: Reports: As per HPI General - Communication Select best description of speech pattern: Clear Speech Ability to express ideas and wants: Understood Understanding verbal content: Understands - Physical Functioning Activity Level: Up with assist x1 Turning: Self ad jean pierre ROM Ability: Moves all extremities Assistive Devices: 4 Wheel Walker Ambulation Ability: Needs Assist Bed Mobility: Independent Transfer Ability: Needs Assist Bathing Ability: Needs Assist Personal Hygiene: Needs Assist Dressing Ability: Needs Assist Eating (Feeding) Ability: Independent Toileting Ability: Needs Assist Administer Own Medication: Needs Assist - Continence Bowel Pattern: Normal for Patient Bladder Pattern: Normal, Incontinent Urinary Incontinence: Urge Meds/Allergies - Allergies Allergies Allergy/AdvReac Type Severity Reaction Status Date / Time codeine AdvReac ALTERED Verified 01/20/19 14:00 MENTAL STATUS - Active Medications Current Medications Acetaminophen (Tylenol 500mg Tab) 1,000 mg PO Q8H PRN PRN Reason: PAIN - MILD TO MODERATE (1-7) Last Admin: 03/08/19 14:25 Dose: 1,000 mg Documented by: Albuterol/Ipratropium (Duoneb) 3 ml INH RESP.QID PRN PRN Reason: DYSPNEA Last Admin: 03/09/19 10:14 Dose: 3 ml Documented by: Ascorbic Acid (Vitamin C) 500 mg PO DAILY [facility] Last Admin: 03/10/19 11:27 Dose: 500 mg Documented by: Aspirin (Ecotrin (Ec)) 81 mg PO DAILY [facility] Last Admin: 03/10/19 11:27 Dose: 81 mg Documented by: Carvedilol (Coreg) 3.125 mg PO BID [facility] Last Admin: 03/10/19 11:27 Dose: 3.125 mg Documented by: Cephalexin HCl (Keflex) 500 mg PO BID [facility] Stop: 03/11/19 10:01 Last Admin: 03/10/19 11:28 Dose: 500 mg Documented by: Clopidogrel Bisulfate (Plavix) 75 mg PO DAILY [facility] Last Admin: 03/10/19 11:29 Dose: 75 mg Documented by: Gabapentin (Neurontin) 600 mg PO BID [facility] Last Admin: 03/10/19 11:27 Dose: 600 mg Documented by: Isosorbide Mononitrate (Imdur) 30 mg PO DAILY [facility] Last Admin: 03/10/19 11:27 Dose: 30 mg Documented by: Losartan Potassium (Losartan Potassium) 100 mg PO DAILY [facility] Last Admin: 03/10/19 11:27 Dose: 100 mg Documented by: Pantoprazole Sodium (Protonix) 40 mg PO BIDAC [facility] Last Admin: 03/10/19 06:27 Dose: 40 mg Documented by: Patient Own Med: (Multivitamin) 1 each PO DAILY [facility] Last Admin: 03/10/19 11:28 Dose: 1 each Documented by: Patient Own Med: (Preservision) 1 each PO BIDWM [facility] Last Admin: 03/10/19 07:50 Dose: 1 each Documented by: Rifampin (Rifampin) 600 mg PO DAILY [facility] Stop: 06/30/19 10:01 Last Admin: 03/10/19 11:26 Dose: 600 mg Documented by: Simvastatin (Zocor) 40 mg PO QHS [facility] Last Admin: 03/09/19 21:13 Dose: 40 mg Documented by: Sucralfate (Carafate) 1 g PO QID [facility] Last Admin: 03/10/19 14:51 Dose: 1 g Documented by: Objective - Vital Signs Vital Signs: Vital Signs - Last 24 Hrs Temp Pulse Resp BP Pulse Ox 03/10/19 14:40 91 L 03/10/19 07:41 98.5 F 55 L 17 115/78 90 L 03/09/19 20:00 97.7 F 110 H 20 136/73 92 L - General General Appearance: Oriented x3 Limitations: Physical limitation - Head Head exam: Normal inspection - Eye Eye exam: Normal appearance, PERRL Pupils: Normal accommodation - ENT ENT exam: Normal exam, Mucous membranes moist, Normal external ear exam, Normal orophraynx, TM's normal bilaterally Ear exam: Normal external inspection. negative: External canal tenderness Nasal Exam: Normal inspection. negative: Discharge, Sinus tenderness Mouth exam: Normal external inspection, Tongue normal Teeth exam: Normal inspection. negative: Dental caries Throat exam: Normal inspection. negative: Tonsillar erythema, Tonsillar exudate - Neck Neck exam: Normal inspection. negative: Full ROM, Tenderness - Respiratory Respiratory exam: Decreased breath sounds - Cardiovascular Cardiovascular Exam: Regular rate, Normal rhythm, Normal heart sounds - GI/Abdominal GI/Abdominal exam: Soft, Normal bowel sounds. negative: Tenderness - Rectal Rectal exam: Deferred - exam: Deferred - Extremities Extremities exam: Normal inspection, Normal capillary refill. negative: Tenderness - Neurological Neurological exam: Oriented X3 - Psychiatric Psychiatric exam: Normal affect, Normal mood - Skin Skin exam: Rash (left lower back- lesions arranged in linear pattern, crusted over) Type of lesion: Rash Distribution of rash: Back Description of rash: Crusting, Erythematous. negative: Discharge H&P Results - Labs Result Diagrams: 03/04/19 06:20 Discharge Potential - Discharge Needs Community Services Used Prior to Admission: Home Health Nurse, Physical Therapy Patient Discharge Plan Description: Return Home Community Services Needed at Discharge: Home Health Nurse, Physical Therapy Plan - Swing Bed Certification Initial Certification Due: 03/02/19 14 Day Re-Cert Due: 03/16/19 44 Day Re-Cert Due: 04/15/19 74 Day Re-Cert Due: 05/15/19
[2019-03-10] MEDS: SIMVASTATIN 20 MG TABLET PO SCH (22:14)
[2019-03-11] MEDS: ACETAMINOPHEN 500 MG TABLET PO PRN (02:04)
[2019-03-11] MEDS: PANTOPRAZOLE SODIUM 40 MG TABLET PO SCH ×2 (06:11→17:27)
[2019-03-11] MEDS: PRESERVISION PO SCH ×2 (08:36→17:27)
--- NOTE | 2019-03-11 10:03 | Physical Therapy Tx Note ---
Physical Therapy Tx Note - Treatment Note Physical Therapy Tx Note: Detail (Patient was reclined in chair sleeping upon P TA arrival. Patient declined treatment this morning due to not feeling well, tired. Patient was left reclined in chair with call light within reach.) Physical Therapy Problem List: Detail (1) Decreased LE strength 2) Assistance with ambulation (CG) 3) Decreased standing balance 4) Decreaed ability to complete prolonged physical activity) Physical Therapy Goals: 1) Assess bed mobility. 2) Assess Balance using Objective Balance scale.(Goal Met). 3) Increase LE strength 1/3 muscle grade to increase LE strength. 4) The patient will be independent with bed mobility and transfers. 5) The patient will ambulate independently with 4 wheeled walker household distances. 6) The patient will tolerate 30 minutes of physical activity with one rest period. Physical Therapy Plan: PT 1-2 times a day M-F for gait training, transfer training, balance and LE strengthening exercises.
[2019-03-11] MEDS: GABAPENTIN 300 MG CAPSULE PO SCH ×2 (10:40→21:34)
[2019-03-11] MEDS: RIFAMPIN 300MG CAPSULE PO SCH (10:40)
[2019-03-11] MEDS: ISOSORBIDE MONONITRATE 30 MG TAB.ER.24H PO SCH (10:41)
[2019-03-11] MEDS: CLOPIDOGREL 75MG TABLET PO SCH (10:41)
[2019-03-11] MEDS: LOSARTAN POTASSIUM 100 MG TABLET PO SCH (10:41)
[2019-03-11] MEDS: CEPHALEXIN 500 MG CAPSULE PO SCH (10:41)
[2019-03-11] MEDS: SUCRALFATE 1 G/10 ML UD PO SCH ×4 (10:41→21:33)
[2019-03-11] MEDS: ASPIRIN 81 MG TABEC PO SCH (10:41)
[2019-03-11] MEDS: ASCORBIC ACID 500 MG TAB PO SCH (10:41)
[2019-03-11] MEDS: PATIENT OWN MED: MULTIVITAMIN PO SCH (10:41)
[2019-03-11] MEDS: CARVEDILOL 3.125 MG TABLET PO SCH ×2 (10:41→21:34)
--- NOTE | 2019-03-11 11:40 | Physician Progress Note ---
Subjective - Date Date of Progress Note: 03/11/19 - Admitting Diagnosis Diagnosis: Deconditioning d/t encephalopathy - Subjective Events since last encounter: Nursing staff reports new onset of weakness and increased fatigue. Has been afebrile, VSS. Patient denies cough, body aches, chills, fever, dysuria. Nursing Care Plan Problem List Activity Intolerance (Swing Bed) Start: 03/02/19 16:15 Freq: Status: Active Protocol: Created 03/02/19 16:15 [facility] (Rec: 03/02/19 16:15 [facility] ASTS-1) Altered Thought Process (Fall Risk) Start: 03/02/19 16:17 Freq: Status: Active Protocol: Created 03/02/19 16:17 [facility] (Rec: 03/02/19 16:17 [facility] ASTS-1) Impaired Mobility (Fall Risk) Start: 03/02/19 16:17 Freq: Status: Active Protocol: Created 03/02/19 16:17 [facility] (Rec: 03/02/19 16:17 [facility] ASTS-1) Knowledge Deficit (Swing Bed) Start: 03/02/19 16:15 Freq: Status: Active Protocol: Created 03/02/19 16:15 [facility] (Rec: 03/02/19 16:15 [facility] ASTS-1) Pain (Swing Bed) Start: 03/02/19 16:15 Freq: Status: Active Protocol: Created 03/02/19 16:15 [facility] (Rec: 03/02/19 16:15 [facility] ASTS-1) Risk for Injury (Fall Risk) Start: 03/02/19 16:17 Freq: Status: Active Protocol: Created 03/02/19 16:17 [facility] (Rec: 03/02/19 16:17 [facility] ASTS-1) General - Communication Select best description of speech pattern: Clear Speech Ability to express ideas and wants: Understood Understanding verbal content: Understands - Physical Functioning Activity Level: Up with assist x1 Turning: Self ad jean pierre ROM Ability: Moves all extremities Assistive Devices: 4 Wheel Walker Ambulation Ability: Needs Assist Bed Mobility: Independent Transfer Ability: Needs Assist Bathing Ability: Needs Assist Personal Hygiene: Needs Assist Dressing Ability: Needs Assist Eating (Feeding) Ability: Independent Toileting Ability: Needs Assist Administer Own Medication: Needs Assist - Continence Bowel Pattern: Normal for Patient Bladder Pattern: Normal, Incontinent Urinary Incontinence: Urge Meds/Allergies - Allergies Allergies Allergy/AdvReac Type Severity Reaction Status Date / Time codeine AdvReac ALTERED Verified 01/20/19 14:00 MENTAL STATUS - Active Medications Current Medications Acetaminophen (Tylenol 500mg Tab) 1,000 mg PO Q8H PRN PRN Reason: PAIN - MILD TO MODERATE (1-7) Last Admin: 03/11/19 02:04 Dose: 1,000 mg Documented by: Albuterol/Ipratropium (Duoneb) 3 ml INH RESP.QID PRN PRN Reason: DYSPNEA Last Admin: 03/09/19 10:14 Dose: 3 ml Documented by: Ascorbic Acid (Vitamin C) 500 mg PO DAILY [facility] Last Admin: 03/11/19 10:41 Dose: 500 mg Documented by: Aspirin (Ecotrin (Ec)) 81 mg PO DAILY [facility] Last Admin: 03/11/19 10:41 Dose: 81 mg Documented by: Carvedilol (Coreg) 3.125 mg PO BID [facility] Last Admin: 03/11/19 10:41 Dose: 3.125 mg Documented by: Clopidogrel Bisulfate (Plavix) 75 mg PO DAILY [facility] Last Admin: 03/11/19 10:41 Dose: 75 mg Documented by: Gabapentin (Neurontin) 600 mg PO BID [facility] Last Admin: 03/11/19 10:40 Dose: 600 mg Documented by: Isosorbide Mononitrate (Imdur) 30 mg PO DAILY [facility] Last Admin: 03/11/19 10:41 Dose: 30 mg Documented by: Losartan Potassium (Losartan Potassium) 100 mg PO DAILY [facility] Last Admin: 03/11/19 10:41 Dose: 100 mg Documented by: Pantoprazole Sodium (Protonix) 40 mg PO BIDAC [facility] Last Admin: 03/11/19 06:11 Dose: 40 mg Documented by: Patient Own Med: (Multivitamin) 1 each PO DAILY [facility] Last Admin: 03/11/19 10:41 Dose: 1 each Documented by: Patient Own Med: (Preservision) 1 each PO BIDWM [facility] Last Admin: 03/11/19 08:36 Dose: 1 each Documented by: Rifampin (Rifampin) 600 mg PO DAILY [facility] Stop: 06/30/19 10:01 Last Admin: 03/11/19 10:40 Dose: 600 mg Documented by: Simvastatin (Zocor) 40 mg PO QHS [facility] Last Admin: 03/10/19 22:14 Dose: 40 mg Documented by: Sucralfate (Carafate) 1 g PO QID [facility] Last Admin: 03/11/19 10:41 Dose: 1 g Documented by: Objective - Vital Signs Vital Signs: Vital Signs - Last 24 Hrs Temp Pulse Pulse Resp BP BP Pulse Ox 03/11/19 08:00 97.9 F 116 H 17 121/68 91 L 03/10/19 22:17 80 16 91 L 03/10/19 20:00 97.4 F L 114 H 18 131/66 92 L 03/10/19 14:40 91 L - General General Appearance: Alert, Oriented x3, Cooperative, No acute distress - ENT ENT exam: Normal exam, Mucous membranes moist - Neck Neck exam: Normal inspection - Respiratory Respiratory exam: Normal lung sounds bilaterally, Decreased breath sounds (bilat bases) - Cardiovascular Cardiovascular Exam: Regular rate, Normal rhythm, Normal heart sounds Peripheral Pulses: 2+: Radial (R), Radial (L) - GI/Abdominal GI/Abdominal exam: Soft, Normal bowel sounds. negative: Tenderness - Extremities Extremities exam: Normal inspection, Full ROM. negative: Pedal edema - Back Back exam: Reports: Normal inspection, Other - Neurological Neurological exam: Alert, CN II-XII intact, Normal gait, Oriented X3 - Skin Skin exam: Other (scabbed lesions to left upper buttock) H&P Results - Labs Result Diagrams: 03/11/19 11:28 03/04/19 06:20 Discharge Potential - Discharge Needs Community Services Used Prior to Admission: Home Health Nurse, Physical Therapy Patient Discharge Plan Description: Return Home Community Services Needed at Discharge: Home Health Nurse, Physical Therapy Plan - Swing Bed Certification Initial Certification Due: 03/02/19 14 Day Re-Cert Due: 03/16/19 44 Day Re-Cert Due: 04/15/19 74 Day Re-Cert Due: 05/15/19 - Detailed Diagnosis and Plan (1) Weakness Current Visit: No Status: Acute Base Code: R53.1 - WEAKNESS Comment: 03/11/19 - CXR - U/A - CBC, CMP to rule out acute illness to explain acute on set weakness. NO acute neurological deficits
[2019-03-11 12:05] LABS: ABSOLUTE NEUTROPHIL COUNT 4.79; BASO % 0.3 % (0-6); EOS % 4.4 % (0-6); GRAN % 77.8 % (47-80); HEMATOCRIT 33.7 % (35.0-47.0); HEMOGLOBIN 9.9 gm/dl (11.6-16.0); LYMPH % 11.2 % (16-45); MEAN CELL VOLUME 83.2 fl (81-97); MEAN CORPUSCULAR HEMOGLOBIN 24.4 pg (27-33); MEAN CORPUSCULAR HGB CONC 29.4 g/dl (32-36); MEAN PLATELET VOLUME 8.9 fl (7.4-10.4); MONO % 6.3 % (0-9); PLATELET COUNT 371 K/uL (130-400); RED BLOOD COUNT 4.05 M/uL (3.80-5.40); RED CELL DISTRIBUTION WIDTH 17.1 % (11.5-14.5); WHITE BLOOD COUNT W/O DIFF 6.2 K/uL (4.2-12.2)
[2019-03-11 12:17] LABS: BLOOD UREA NITROGEN 13 mg/dL (8-23); CREATININE 0.6 mg/dL (0.5-0.9); EST GLOMERULAR FILTRATION RATE > 60 mL/min; TOTAL PROTEIN 7.1 g/dL (6.6-8.7)
[2019-03-11 12:20] LABS: GLUCOSE,RANDOM 114 mg/dL (74-109)
[2019-03-11 12:22] LABS: ALBUMIN 3.6 g/dL (4.0-5.0); ALT/SGPT 62 U/L (<33); AST/SGOT 35 U/L (10.0-35.0)
[2019-03-11 12:23] LABS: ALKALINE PHOSPHATASE 87 U/L (35-104)
--- NOTE | 2019-03-11 14:57 | Physical Therapy Tx Note ---
Physical Therapy Tx Note - Treatment Note Physical Therapy Tx Note: Detail (Pt asleep in chair upon arrival, nasal cannula under chin. Pt awakened easily but very drowsy, placed nasal cannula in nose and tubing around ears and secured. Pt was awake but not very responsive; fell asleep while therapist was talking with her. Nrsg notified. No treatment provided.) Physical Therapy Problem List: Detail (1) Decreased LE strength 2) Assistance with ambulation (CG) 3) Decreased standing balance 4) Decreaed ability to complete prolonged physical activity) Physical Therapy Goals: 1) Assess bed mobility. 2) Assess Balance using Objective Balance scale.(Goal Met). 3) Increase LE strength 1/3 muscle grade to increase LE strength. 4) The patient will be independent with bed mobility and transfers. 5) The patient will ambulate independently with 4 wheeled walker household distances. 6) The patient will tolerate 30 minutes of physical activity with one rest period. Physical Therapy Plan: PT 1-2 times a day M-F for gait training, transfer training, balance and LE strengthening exercises.
[2019-03-11] MEDS: SIMVASTATIN 20 MG TABLET PO SCH (21:35)
[2019-03-12 02:35] LABS: URINE APPEARANCE CLEAR; URINE BILIRUBIN NEGATIVE (NEGATIVE); URINE BLOOD NEGATIVE (NEGATIVE); URINE COLOR ORANGE; URINE GLUCOSE (UA) NEGATIVE (NEGATIVE); URINE KETONE NEGATIVE (NEGATIVE); URINE LEUKOCYTE ESTERASE TRACE (NEGATIVE); URINE NITRITE NEGATIVE (NEGATIVE); URINE PROTEIN NEGATIVE (NEGATIVE); URINE UROBILINOGEN 0.2 E.U./dL (0.20 - 1.00)
[2019-03-12 02:36] LABS: URINE BACTERIA NONE SEEN; URINE EPITHELIAL CELLS 0 - 2 (FEW); URINE RBC 0 - 2 (NONE SEEN); URINE WBC 0 - 2 (0-2/hpf)
[2019-03-12] MEDS: ACETAMINOPHEN 500 MG TABLET PO PRN (04:16)
[2019-03-12] MEDS: PANTOPRAZOLE SODIUM 40 MG TABLET PO SCH (06:52)
[2019-03-12 06:53] LABS: ABSOLUTE NEUTROPHIL COUNT 4.35; BASO % 0.5 % (0-6); EOS % 2.8 % (0-6); GRAN % 72.6 % (47-80); HEMATOCRIT 29.9 % (35.0-47.0); HEMOGLOBIN 8.9 gm/dl (11.6-16.0); LYMPH % 16.3 % (16-45); MEAN CELL VOLUME 81.9 fl (81-97); MEAN CORPUSCULAR HGB CONC 29.8 g/dl (32-36); MONO % 7.8 % (0-9); PLATELET COUNT 302 K/uL (130-400); RED BLOOD COUNT 3.65 M/uL (3.80-5.40)
[2019-03-12 06:54] LABS: MEAN CORPUSCULAR HEMOGLOBIN 24.3 pg (27-33)
--- NOTE | 2019-03-12 07:23 | RADIOLOGY REPORT ---
EXAM: CHEST, TWO VIEWS HISTORY: GENERALIZED WEAKNESS AND COUGH. TECHNIQUE: Upright PA and lateral views of the chest were obtained. Comparison: Two view chest radiographic examination dated 02/15/19. FINDINGS: The heart is not enlarged and the pulmonary vasculature is not dilated. The thoracic aorta is atherosclerotic. Healed granulomatous disease is again noted scattered within the lungs most pronounced in the apices. Mild reticular opacity prominence again noted within the mid and lower lungs likely the result of chronic interstitial change. Somewhat focal opacity now demonstrated at the level of the lateral right mid hemithorax measuring 2.1 x 1.0 cm. This was not well seen on the prior examination and likely relates to atelectasis or less likely infiltrate. The lungs and pleural spaces are otherwise clear. A coronary artery stent is likely in place. There are degenerative changes scattered within the visualized spine and shoulder girdles. Chronic bilateral rotator cuff tears are again suspected. IMPRESSION: SMALL AREA OF FOCAL INCREASED OPACITY PROJECTING AT THE LEVEL OF THE LATERAL RIGHT MID HEMITHORAX, NOT WELL SEEN ON THE PRIOR EXAMINATION LIKELY RELATING TO ATELECTASIS OR SMALL FOCUS OF INFILTRATE. OTHERWISE, NO SIGNIFICANT CHANGE SINCE 02/15/19. JOB NUMBER: [id number] MTDD
[2019-03-12] MEDS: PRESERVISION PO SCH (08:15)
[2019-03-12] MEDS: GABAPENTIN 300 MG CAPSULE PO SCH (09:44)
[2019-03-12] MEDS: LOSARTAN POTASSIUM 100 MG TABLET PO SCH (09:44)
[2019-03-12] MEDS: ASCORBIC ACID 500 MG TAB PO SCH (09:45)
[2019-03-12] MEDS: PATIENT OWN MED: MULTIVITAMIN PO SCH (09:45)
[2019-03-12] MEDS: SUCRALFATE 1 G/10 ML UD PO SCH (09:45)
[2019-03-12] MEDS: ISOSORBIDE MONONITRATE 30 MG TAB.ER.24H PO SCH (09:45)
[2019-03-12] MEDS: CARVEDILOL 3.125 MG TABLET PO SCH (09:45)
[2019-03-12] MEDS: RIFAMPIN 300MG CAPSULE PO SCH (09:48)
--- NOTE | 2019-03-12 10:21 | Discharge Summary ---
Providers Discharge Summary Date: 03/12/19 Date of admission: 03/02/19 15:43 Attending physician: CHIQUI LANDEROS Primary care physician: Selma Phillips N.P. Consults: Consult Orders 03/12/19 08:52 Consult NOW Consulting Provider: JANIS RAM Physician Instructions: consult for dropping Hgb Reason For Exam: ?bleed Physical Exam - Vital Signs Vital Signs: Vital Signs - Last 24 Hrs Temp Pulse Pulse Resp BP BP Pulse Ox 03/12/19 07:45 99.1 F 105 H 16 137/62 90 L 03/12/19 03:10 100.1 F H 03/11/19 21:35 98.5 F 116 H 18 141/61 93 L 03/11/19 20:00 99.1 F 111 H 20 103/52 103/52 93 L 03/11/19 14:58 125 H 26 H 93 L - General General Appearance: Alert, Oriented x3, Cooperative, Mild distress (reports feeling weak and has mild dyspnea) Limitations: Physical limitation - Head Head exam: Normal inspection - Eye Eye exam: Normal appearance, PERRL Pupils: Normal accommodation - ENT ENT exam: Normal exam, Mucous membranes moist Ear exam: Normal external inspection. negative: External canal tenderness Nasal Exam: Normal inspection. negative: Discharge, Sinus tenderness Mouth exam: Normal external inspection, Tongue normal Teeth exam: Normal inspection. negative: Dental caries Throat exam: Normal inspection. negative: Tonsillar erythema, Tonsillar exudate - Neck Neck exam: Normal inspection - Respiratory Respiratory exam: Normal lung sounds bilaterally, Decreased breath sounds (bilat bases) - Cardiovascular Cardiovascular Exam: Regular rate, Normal rhythm, Normal heart sounds Peripheral Pulses: 2+: Radial (R), Radial (L) - GI/Abdominal GI/Abdominal exam: Soft, Normal bowel sounds, Other (active GI bleeding). negative: Tenderness - Rectal Rectal exam: Deferred, Bloody stool - exam: Deferred - Extremities Extremities exam: Normal inspection, Full ROM. negative: Pedal edema - Back Back exam: Reports: Normal inspection, Other - Neurological Neurological exam: Alert, CN II-XII intact, Normal gait, Oriented X3 - Psychiatric Psychiatric exam: Normal affect, Normal mood - Skin Skin exam: Other (scabbed lesions to left upper buttock) Type of lesion: Rash Distribution of rash: Back Description of rash: Crusting, Erythematous. negative: Discharge Hospitalization - Hospitalization Admission Diagnosis: Deconditioning d/t encephalopathy - Problem List/Discharge Diagnosis (1) Weakness Current Visit: No Status: Acute Base Code: R53.1 - WEAKNESS Comment: 03/11/19 - CXR - U/A - CBC, CMP to rule out acute illness to explain acute on set weakness. NO acute neurological deficits - Hospitalization Course Disposition: Acute Care Hospital Transfer Hospital Course: Pt. is an 84 year-old female who presented to the ED on 02/15 for altered mental status, accompanied by her daughter. She was evaluated for stroke, neg head CT, she was hypertensive with SBP in the 200s, sodium was 132, otherwise labs were normal. She was transferred from [facility] to [facility] for brain MRI and EEG. EEG indicative of encephalopathic process, MRI unremarkable for acute process. Shingles was discovered on left flank, acyclovir course completed, and mental status changes resolved. 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 UA showed evidence of UTI and pt was started on rocephin and responded well- changed to keflex 500mg bid for discharge (for total of 2 weeks abx). Her history includes ischemic heart disease, hyponatremia (eats bullion cubes daily at home), ex-smoker, hx TB at age 15, neuropathy, macular degeneration, impaired hearing, HTN, ND, GERD, arthritis, and compression fractures of the spine. 03/03/19: Pt. was admitted for swing bed on 03/02/19. PT and OT evaluations were completed upon swing bed admission and will continue M-F. Will continue to monitor labs every other day. Soft diet for present time- pt is missing top dentures from recent hospitalization. 03/12/19- For the past 24 hours has been complaining of feeling weak and overall not herself. Staff has reported new overall weakness for the past 24 hours. VSS stable, tmax 100.1 last night. Yesterday she was worked up for acute infectious process- CXR preliminary reading showed atelectasis vs. scarring. Urinalysis clean catch trace leukocytes. CBC with normal WBC but Hgb 9.9. No hx anemia. Repeat CBC this am with Hgb 8.9 with active GI bleeding this am. She denies any chest pain , dizziness, VSS remain stable. A&0 x3. Case discussed with Dr West [place] [facility] and [place] transfer for acute GI beed. ASA and Plavix held today. PCP: MATTHEW Huerta Procedures: Imaging and X-Rays 03/11/19 09:42 CHEST 2 VIEWS [RAD] Stat Abnormal Labs: Abnormal Lab Results 03/04/19 03/11/19 03/11/19 Range/Units 06:20 11:28 11:28 RBC (3.80-5.40) M/uL Hgb 9.9 L (11.6-16.0) gm/dl Hct 33.7 L (35.0-47.0) % MCH 24.4 L (27-33) pg MCHC 29.4 L (32-36) g/dl RDW 17.1 H (11.5-14.5) % Lymphocytes % 11.2 L (16-45) % Chloride 97 L (98-107) mmol/L Carbon Dioxide 30.0 H (22-29) mmol/L Random Glucose 114 H (74-109) mg/dL ALT 62 H (<33) U/L Total Protein 6.3 L (6.6-8.7) g/dL Albumin 3.2 L 3.6 L (4.0-5.0) g/dL Albumin/Globulin Ratio 1.0 L 1.0 L (1.1-1.8) Urine Color Ur Leukocyte Esterase (NEGATIVE) 03/12/19 03/12/19 Range/Units 02:34 06:10 RBC 3.65 L (3.80-5.40) M/uL Hgb 8.9 L (11.6-16.0) gm/dl Hct 29.9 L (35.0-47.0) % MCH 24.3 L (27-33) pg MCHC 29.8 L (32-36) g/dl RDW 17.0 H (11.5-14.5) % Lymphocytes % (16-45) % Chloride (98-107) mmol/L Carbon Dioxide (22-29) mmol/L Random Glucose (74-109) mg/dL ALT (<33) U/L Total Protein (6.6-8.7) g/dL Albumin (4.0-5.0) g/dL Albumin/Globulin Ratio (1.1-1.8) Urine Color Terry H Ur Leukocyte Esterase Trace H (NEGATIVE) Discharge Medications - Discharge Medications Home Medications: Ambulatory Orders Aspirin [Adult Aspirin] 81 mg PO DAILY 08/03/18 [Last Taken 01/20/19] Clopidogrel Bisulfate [Plavix] 75 mg PO DAILY 08/03/18 [Last Taken 01/20/19] Budesonide [Pulmicort] 0.5 mg INH RESP.BID #2 box 10/05/18 [Last Taken 01/20/19] Ipratropium/Albuterol [Duoneb] 3 ml INH RESP.Q4H.WA #2 box 10/05/18 [Last Taken 01/20/19] Multivitamin [One Daily Multivitamin] 1 each PO DAILY tab 02/01/19 [Last Taken Unknown] Vit A/Vit C/Vit E/Zinc/Copper [Preservision Areds Tablet] 1 each PO DAILY tab 02/01/19 [Last Taken Unknown] Discharge Plan - Discharge Instructions Additional Instructions: Appointment at [facility] Infectious Disease with Dr. Carrizales: Friday, 03/24 at 8:20AM. Please arrive 10 minutes early for paperwork. This is a follow up appointment for the TB medication[place] [address] [place] [address]; [phone] Quality Measures - Quality Measures Quality Measures: Advance Directives, Documentation of Current Medications in Medical Record, Elder Maltreatment Screen and Follow-Up Plan, Screening for High Blood Pressure and F/U Documented - Current Medications Quality Measure: Measure #130: Documentation of Current Medications Documentation of Current Medications: <Current Medications Documented/Reviewed> [G8427] - Blood Pressure Screening Quality Measure: Screening for High Blood Pressure and Follow-Up Documented Does Patient Have Any of the Following: Active Dx of HTN Blood Pressure Classification: Hypertensive Reading Systolic Measurement: 159 Diastolic Measurement: 68 Screening for High Blood Pressure: Patient Exclusion, Hx of HTN [G9744] - Advance Directives Quality Measure: Measure #47: Care Plan Advance Directives Established: No Advance Directives Information Provided To Patient: Declined Advance Directives on File: No Living Will: No Power of Clerk Stenographer: Yes Power of Clerk Stenographer Name: SHARMIN MONDRAGON Advance Care Planning: <Care Plan/Decision Maker Documented; Discussed & Documented> [1123F] - Elder Abuse Suspicion Index Screening: Elder Abuse Suspicion Index Screening Rely on people for bathing, dressing, shopping, banking, etc: Yes Prevented from getting food, clothes, medication, etc: No Made to feel shamed or threatened by someone: No Forced to sign papers or use money against will: No Feel afraid, touched in ways not wanted or hurt physically: No Poor eye contact, withdrawn, malnourished, cuts or bruises: No Screening Result: Negative result EASI Reference Information: Micah STEIN, Felicia C, Arik D, Donya Spivey.Development and validation of a tool to assist physicians identification of elder abuse: The Elder Abuse Suspicion Index (EASI ). Journal of Elder Abuse and Neglect, 2008; 20 (3): 276-300. - Elder Maltreatment Screen Quality Measures: Elder Maltreatment Screen and Follow-Up Plan Elder Maltreatment Screen: <Negative, No Follow-Up Plan Required> [G0766]
--- NOTE | 2019-03-12 11:05 | Rehab Discharge Summary ---
Patient Information - Patient Information Diagnosis: Deconditioning d/t recent sepsis, encelphalopathy Ordered Treatment: PT Evaluate and Treat Surgery: No Past Medical/Surgical Hx: PAST MEDICAL/SURGICAL HISTORY Past Surgical History cardiac stent femoral stents chest (15 yrs old from tb) PMH - Respiratory Hx Respiratory Disorders Yes Hx Bronchitis Yes Hx Chronic Obstructive Yes: no official dx Pulmonary Disease (COPD) Hx Dyspnea Yes Hx Tuberculosis Yes PMH - Cardiovascular Hx Cardiovascular Disorders Yes Hx Abnormal EKG Yes Hx Cardiac Catheterization Yes Hx Heart Attack Yes Hx Hypertension Yes PMH - Neuro Hx Neurological Disorders Yes Hx Dizziness Yes: occasional Hx Neuropathy Yes PMH - GI Hx Gastrointestinal Disorders No Hx Gastroesophageal Reflux Yes PMH - Hx Genitourinary Disorders No PMH - Endocrine Hx Endocrine Disorders Yes Hx Diabetes Yes PMH - Musculoskeletal Hx Musculoskeletal Disorders Yes Hx Arthritis Yes Hx Back Injury Yes: fx hx PMH - Psych Hx Psychiatric Problems No PMH - Hematology/Oncology Hx Hematology/Oncology Yes Disorders Premorbid Status: Detail (Patient was ambulatory at home with 4 wheeled walker and was independent with toileting and dressing. The patient did have assistance with showering from daughter and son-in-law and daughter assisted with meals and all case picker.) Social History: Detail (The patient lives in a mobile home with a ramp at the enterance. Daughter and son-in-law live next door. The bathroom is equipped with the following: tub shower combination with extended shower chair with a suction grab bar, standard height toilet with a grab bar in front. 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.) Precautions: [place], Fall Subjective Information - Subjective Information Per Patient (Patient had complaints of increased fatigue and "just not feeling well" over the past few days.) Objective Data - Mental Status Patient Orientation: Oriented x3 - Visual Perception Deficit (Macular degeneration.) - ROM Within normal limits (LE AROM was WNL.) - Strength/Tone Not within normal limits (LE strength bilaterally hip flexors 3+/5, hip extensors 4-/5, hip abductors and adductors 4/5, knee extensors and flexors 4/5, doriflexors 2+/5, plantar flexors 4-/5.) - Bed Mobility Independent - Transfers Independent (The patient was Independent/supervision with sit to and from stand from higher surface. The patient required use of grab bar to stand from toilet.) - Balance Balance Sitting: Good Balance Standing: Poor (Poor to Fair. The patient was able to stand briefly without support of UE's on surface. The patient exhibited decreased posterior balance reaction probably due to decreased dorsiflexor strength. The patient's balance using the Tinetti Assessment Tool was 08/07 which is in the high risk for falling category.) - Gait Detail (The patient ambulated a maximum distace of 180 feet with 2 L of O2 with 4 wheeled walker with CG to supervision. Over the past week, the patient was ambulating 25 feet and less with CG due to increased unsteadiness and fatigue.) Therapy Assessment - Therapy Assessment Detail (The patient's status in PT was declining over the past week with more assistance required with ambulation and decreased ambulation distance. The patient is transferring to [facility] due to current medical status.) Patient Education - Patient Education Teaching Topic: Exercise/Activity (The patient was independent with seat LE strengthening exercises prior to decline in medical status.) Response: Return Demonstration Teaching Method: Demonstration, Handout Teaching Recipient: Patient Barriers To Learning: Age Related Problem List - Problem List Physical Therapy Problem List: Detail (1) Decreased LE strength 2) Assistance with ambulation (CG) 3) Decreased standing balance 4) Decreaed ability to complete prolonged physical activity) Occupational Therapy Problem List: Detail (1. Weakness bilateral upper extremities 2. Decreased ROM bilateral upper extremities 3. Decreased independence with sit<>stand t/f toilet level 4. Further evaluate UB and LB drsg. 5. Decreased endurance) Goals - Goals Physical Therapy Goals: 1) Assess bed mobility.(Goal Met). 2) Assess Balance using Objective Balance scale.(Goal Met). 3) Increase LE strength 1/3 muscle grade to increase LE strength(Goal Not Met). 4) The patient will be independent with bed mobility and transfers(Goal Partially Met- supervision with transfers due to decline of medical status). 5) The patient will ambulate independently with 4 wheeled walker household distances. (Goal Partially Met -due to decline in medical status). 6) The patient will tolerate 30 minutes of physical activity with one rest period. (Goal Not Met secondary to decline in medical status.) Occupational Therapy Goals: 1. Independent with sit<>stand t/f's toilet level with grab bars and 4WW. 2. Independent ambulation of household distances with 4WW. 3. Evaluate UB and LB drsg. 4. Increase left UE strength by 1/3 muscle grade for shld flex and elbow flex. 5. Increase ARENAS of bilateral upper extremities by 15 degrees Plan - Plan Physical Therapy Plan: Patient transferred to [facility] due to medical status. Occupational Therapy Plan: OT 2-4x a week Friday through Friday for UE strengthening, ROM, and increased independence with self care tasks.
--- NOTE | 2019-03-12 11:13 | Rehab Discharge Summary ---
Patient Information - Patient Information Diagnosis: Deconditioning d/t recent sepsis, encelphalopathy Ordered Treatment: OT Evaluate and Treat Surgery: No Past Medical/Surgical Hx: PAST MEDICAL/SURGICAL HISTORY Past Surgical History cardiac stent femoral stents chest (15 yrs old from tb) PMH - Respiratory Hx Respiratory Disorders Yes Hx Bronchitis Yes Hx Chronic Obstructive Yes: no official dx Pulmonary Disease (COPD) Hx Dyspnea Yes Hx Tuberculosis Yes PMH - Cardiovascular Hx Cardiovascular Disorders Yes Hx Abnormal EKG Yes Hx Cardiac Catheterization Yes Hx Heart Attack Yes Hx Hypertension Yes PMH - Neuro Hx Neurological Disorders Yes Hx Dizziness Yes: occasional Hx Neuropathy Yes PMH - GI Hx Gastrointestinal Disorders No Hx Gastroesophageal Reflux Yes PMH - Hx Genitourinary Disorders No PMH - Endocrine Hx Endocrine Disorders Yes Hx Diabetes Yes PMH - Musculoskeletal Hx Musculoskeletal Disorders Yes Hx Arthritis Yes Hx Back Injury Yes: fx hx PMH - Psych Hx Psychiatric Problems No PMH - Hematology/Oncology Hx Hematology/Oncology Yes Disorders Premorbid Status: Detail (Patient was ambulatory at home with 4 wheeled walker and was independent with toileting and dressing. The patient did have assistance with showering from daughter and son-in-law and daughter assisted with meals and all forest fire management officer.) Social History: Detail (The patient lives in a mobile home with a ramp at the enterance. Daughter and son-in-law live next door. The bathroom is equipped with the following: tub shower combination with extended shower chair with a suction grab bar, standard height toilet with a grab bar in front. The patient has a 4 wheeled walker and cheese sprayer.) Precautions: [place]ar, Fall Objective Data - Mental Status Patient Orientation: Oriented x3 - Visual Perception Deficit (Pt has decreased vision due to macular degeneration) - ROM Not within normal limits (Overall unchanged from initial evaluation (please see eval for details)) - Strength/Tone Not within normal limits (Overall unchanged from initial evaluation (see eval for details)) - Coordination Deficit (Pt continues to have impaired coordination in hands due to neuropathy) - Bed Mobility Independent - Transfers Independent - Balance Balance Sitting: Good Balance Standing: Fair - Sensation Intact - Gait Detail (Pt ambulating short distances with walker.) - ADL's/IADL's Detail (Pt requires assist for showering and dressing tasks.) Therapy Assessment - Therapy Assessment Detail (Pt is transferring due to declining medical status. She was making slow gains with therapy although endurance was continuing to be poor.) Problem List - Problem List Physical Therapy Problem List: Detail (1) Decreased LE strength 2) Assistance with ambulation (CG) 3) Decreased standing balance 4) Decreaed ability to complete prolonged physical activity) Occupational Therapy Problem List: Detail (1. Weakness bilateral upper extremities 2. Decreased ROM bilateral upper extremities 3. Decreased independence with sit<>stand t/f toilet level 4. Further evaluate UB and LB drsg. 5. Decreased endurance) Goals - Goals Physical Therapy Goals: 1) Assess bed mobility. 2) Assess Balance using Objective Balance scale.(Goal Met). 3) Increase LE strength 1/3 muscle grade to increase LE strength. 4) The patient will be independent with bed mobility and transfers. 5) The patient will ambulate independently with 4 wheeled walker household distances. 6) The patient will tolerate 30 minutes of physical activity with one rest period. Occupational Therapy Goals: Goals partially met: 1. Independent with sit<>stand t/f's toilet level with grab bars and 4WW. 2. Independent ambulation of household distances with 4WW. 3. Evaluate UB and LB drsg. 4. Increase left UE strength by 1/3 muscle grade for shld flex and elbow flex. 5. Increase ARENAS of bilateral upper extremities by 15 degrees Prognosis - Prognosis Moderate Plan - Plan Physical Therapy Plan: PT 1-2 times a day M-F for gait training, transfer training, balance and LE strengthening exercises. Occupational Therapy Plan: Pt discharging due to declining medical status.
== END 2019-03-12 11:25 | disposition short-term general hospital (02) | DRG 71 ==
LOC: MEDSURG 03-02 15:43
PROVIDERS: ADMIT Internal Medicine; ATTEND Internal Medicine
DX: G93.40 Encephalopathy, unspecified (principal); N39.0 Urinary tract infection, site not specified; E87.1 Hypo-osmolality and hyponatremia; R41.82 Altered mental status, unspecified; R53.1 Weakness; R53.83 Other fatigue; I10 Essential (primary) hypertension; N39.41 Urge incontinence; I25.2 Old myocardial infarction; B02.9 Zoster without complications; I25.9 Chronic ischemic heart disease, unspecified; H91.90 Unspecified hearing loss, unspecified ear; K21.9 Gastro-esophageal reflux disease without esophagitis; M19.90 Unspecified osteoarthritis, unspecified site; Z87.891 Personal history of nicotine dependence; Z86.11 Personal history of tuberculosis
CPT/HCPCS: 71046; 80053; 81001; 82310; 85025; 94640; 94760; 94761; 97110; 97530; 99306; 99310; 99316; J3490